=== PATIENT | female | born 1940 | race Caucasian/White ===

== ENCOUNTER → 2018-11-28 | Outpatient (CLI) | payer MEDICARE ==
--- NOTE | 2018-11-29 18:41 | ECHOF ---
Referral Reason:I10 essential primary hypertension MEASUREMENTS -------- HEIGHT: 160.0 cm WEIGHT: 5.9 kg BP: 183/86 RVIDd: 2.7 cm (< 3.3) IVSd: 1.3 cm (0.6 - 1.1) LVIDd: 3.5 cm (3.9 - 5.3) LVPWd: 1.1 cm (0.6 - 1.1) IVSs: 1.8 cm LVIDs: 2.5 cm LVPWs: 1.3 cm LA Diam: 3.4 cm (2.7 - 3.8) Ao Diam: 3.2 cm (2.0 - 3.7) AV Cusp: 2.1 cm (1.5 - 2.6) MV EXCURSION: 8.503 mm (> 18.000) MV EF SLOPE: 27 mm/s (70 - 150) EPSS: 0.9 cm MV E Mick: 0.86 m/s MV DecT: 237 ms MV A Mick: 0.64 m/s MV E/A Ratio: 1.35 AR PHT: 674 ms RAP: 5.00 mmHg RVSP: 23.57 mmHg FINDINGS -------- This was a technically adequate study. The left ventricular size is normal. There is mild concentric left ventricular hypertrophy. Overa ll left ventricular systolic function is normal with, an EF between 60 - 65 %. The right ventricle is normal in size. The left atrial size is normal. The right atrium is normal in size. Interatrial and interventricular septum intact. There is mild aortic valve sclerosis. There is mild aortic regurgitation. Mild mitral annular calcification present. There is trace to mild mitral regurgitation. Mild tricuspid regurgitation present. Right ventricular systolic pressure is normal at < 35 mmHg. Trace/mild (physiologic) pulmonic regurgitation. The aortic root size is normal. Normal inferior vena cava with normal inspiratory collapse consistent with estimated right atrial pre ssure of 5 mmHg. There is no pericardial effusion. CONCLUSIONS -------- 1. This was a technically adequate study. 2. The left ventricular size is normal. 3. There is mild concentric left ventricular hypertrophy. 4. Overall left ventricular systolic function is normal with, an EF between 60 - 65 %. 5. The right ventricle is normal in size. 6. The left atrial size is normal. 7. The right atrium is normal in size. 8. Interatrial and interventricular septum intact. 9. There is mild aortic valve sclerosis. 10. There is mild aortic regurgitation. 11. Mild mitral annular calcification present. 12. There is trace to mild mitral regurgitation. 13. Mild tricuspid regurgitation present. 14. Right ventricular systolic pressure is normal at < 35 mmHg. 15. Trace/mild (physiologic) pulmonic regurgitation. 16. The aortic root size is normal. 17. Normal inferior vena cava with normal inspiratory collapse consistent with estimated right atrial pressure of 5 mmHg. 18. There is no pericardial effusion. PRODUCTION SUPPORT DEVELOPER: Katey Boyd RDCS
== END | disposition home or self-care (01) ==
LOC: RADECHMAIN 15:44
PROVIDERS: ATTEND Internal Medicine
DX: I08.3 Combined rheumatic disorders of mitral, aortic and tricuspid valves (principal); I10 Essential (primary) hypertension
CPT/HCPCS: 93306

== ENCOUNTER → 2018-12-19 | Outpatient (CLI) | payer MEDICARE | END | disposition home or self-care (01) | LOC: LABWHC1 09:33 | PROVIDERS: ATTEND Orthopaedic Surgery | DX: Z01.812 Encounter for preprocedural laboratory examination (principal); M16.12 Unilateral primary osteoarthritis, left hip | CPT/HCPCS: 87070 ==

== ENCOUNTER 2018-12-27 06:53 | Inpatient (IN) | payer MEDICARE ==
--- NOTE | 2018-12-26 09:24 | HP ---
HISTORY AND PHYSICAL CHIEF COMPLAINT: Left hip pain. HISTORY OF PRESENT ILLNESS: The patient is a 78-year-old retired female who presents with progressive left hip pain secondary to osteoarthrosis. She notes severe pain with ambulation and at night. She has been using a cane. She has tried medications with only temporary partial relief. She notes it severely limits her. PAST MEDICAL HISTORY: Significant for arthritis, hypertension, and hypothyroidism. PAST SURGICAL HISTORY: Significant for tubal ligation and foot surgery. CURRENT MEDICATIONS: 1. Simvastatin. 2. Synthroid. 3. Aspirin. 4. Cozaar. ALLERGIES: She denies drug allergies. FAMILY HISTORY: Significant for heart disease. SOCIAL HISTORY: Negative for current tobacco or alcohol use. REVIEW OF SYSTEMS: Sixteen-point review of systems otherwise reviewed and is noncontributory. PHYSICAL EXAMINATION: On examination, the patient is approximately 5 feet 3 inches, 155 pounds of mesomorphic habitus. HEENT exam is nonfocal. Neck is supple. Active motion left hip, flexion 70 degrees, external rotation of the hip flexed 65 degrees, internal rotation 0 degrees with pain. Motor strength is 5 minus over 5 for abduction. She has 1 cm shortening of the left lower extremity compared to the right. She does have a mildly antalgic gait pattern. Her distal neurovascular exam appears intact in the left lower extremity. Previous x-rays of the left hip obtained in the office show severe osteoarthrosis with [id number] changes. IMPRESSION: Left hip severe osteoarthrosis-symptomatic. RECOMMENDATIONS: I talked to the patient at length regarding her condition and treatment options. At this point, she is quite symptomatic and opts to proceed with surgery. We will plan to proceed with left total hip arthroplasty utilizing a direct anterior approach. We will institute DVT prophylaxis postoperatively. Risks and benefits were discussed at length in layman's terms. MMODL / IJN: [id number] /
[~2018-12-27 06:53] MED LIST: ACETAMINOPHEN TAB 500 MG TAB PO ONE; DEXAMETHASONE SOD PHOSPHATE 10 MG/ML 1 ML VIAL IV ONE; HYDROmorphone 0.5 MG/0.5 ML SYRINGE IVP PRN; LIDOCAINE 1% 20 ML VIAL (10MG/ML) FOR IV START INTRADERMA PRN; MELOXICAM 7.5 MG TAB PO ONE; MIDAZOLAM 2 MG/2 ML VIAL IV PRN; ONDANSETRON 4 MG/2 ML VIAL IVP ONE; SCOPOLAMINE 1.5MG/72HR PATCH TRANSDERM ONE; TRANEXAMIC ACID 1,000 MG in SODIUM CHLORIDE 0.9% 100 ML IVPB ONE
[2018-12-27] MEDS: LACTATED RINGERS 1,000 ML IV SCH (07:36)
[2018-12-27 07:44] LABS: INR 0.9 (<1.2); Prothrombin Time 10.2 sec (9.0-12.0)
[2018-12-27] MEDS ORDERED: SODIUM CHLORIDE 0.9% 100 ML BAG ONE (07:49)
[2018-12-27] MEDS ORDERED: MIDAZOLAM 2 MG/2 ML VIAL ONE (07:49)
[2018-12-27] MEDS ORDERED: HEPARIN SODIUM,PORCINE 10,000 UNIT/ML 1 ML VIAL ONE (07:49)
[2018-12-27] MEDS ORDERED: ePHEDrine SULFATE/0.9% NACL/PF 50 MG/5 ML SYRINGE IV ONE (07:49)
[2018-12-27] MEDS ORDERED: TRANEXAMIC ACID 1,000 MG/10 ML VIAL ONE (07:49)
[2018-12-27] MEDS ORDERED: LACTATED RINGERS 1,000 ML BAG IV ONE (07:49)
[2018-12-27] MEDS ORDERED: PROPOFOL 10 MG/ML 20 ML VIAL IV ONE (07:49)
[2018-12-27] MEDS ORDERED: fentaNYL (PF) 50 MCG/ML 2 ML AMP ONE (07:49)
[2018-12-27] MEDS ORDERED: ceFAZolin 3,000 MG in SODIUM CHLORIDE 0.9% IRRIGATIO 3,000 ML IRRIGATION ONE (08:36)
[2018-12-27] MEDS ORDERED: HYDROmorphone 0.5 MG/0.5 ML SYRINGE IVP PRN ×2 (09:43→11:20)
[2018-12-27] MEDS ORDERED: MAGNESIUM HYDROXIDE 2,400 MG/10 ML CUP PO PRN (09:43)
[2018-12-27] MEDS ORDERED: NALOXONE 0.4 MG/ML 1 ML VIAL IV PRN (09:43)
[2018-12-27] MEDS ORDERED: HYDROcodone/APAP 5-325MG 1 EACH TAB PO PRN (09:43)
--- NOTE | 2018-12-27 10:04 | FL ---
EXAMINATION TYPE: FL guidance operating room, XR Hip Limited LT DATE OF EXAM: 12/27/2018 CLINICAL HISTORY: Left hip pain and osteoarthritis. TECHNIQUE: Fluoroscopy. Intraoperative limited views left hip. COMPARISON: None. FINDINGS: Fluoroscopic guidance was provided during left hip replacement procedure performed by Dr. Bailey. A total of 41 seconds of fluoroscopic time was utilized during the procedure and 1spot intrao perative image is acquired. Intraoperative image acquired show metallic hardware satisfactory position on single frontal projecti on. IMPRESSION: As Above.
--- NOTE | 2018-12-27 10:10 | P.OP ---
Date of Procedure: 12/27/18 Preoperative Diagnosis: Left hip severe osteoarthrosis Postoperative Diagnosis: Same Procedure(s) Performed: Left total hip arthroplastyanterior approachpress-fit Implants: Depuy Corail size 10 standard press-fit collared femoral stem, 36 mm +1.5 cobalt chrome femoral head, 56 mm [place] acetabular shell with neutral polyethylene liner. Anesthesia: spinal Surgeon: Jorge Bailey Cattle Brander #1: Cruz Coffey Estimated Blood Loss (ml): 600 Pathology: other (Femoral head) Condition: stable Disposition: PACU Indications for Procedure: The patient's a 78-year-old female who presents with progressive left hip pain secondary to osteoarthrosis despite conservative measures. A discussion of the risks and benefits of operative intervention versus continued conservative measures was made with the patient. She opted to proceed with surgery. Operative risks to include infection, neurovascular injury, development of blood clots, fracture, instability, leg length discrepancy, and possible need for subsequent procedures was discussed. Informed consent was obtained. Operative Findings: As below Description of Procedure: The patient was brought to the operating room, and after induction of spinal anesthesia was placed supine on the [place] table. Positioning was checked with fluoroscopy. The left hip was then prepped and draped in a normal fashion. A 12 cm incision was then made starting 2 fingerbreadths distal and 3 finger breaths posterior to the ASIS in line with the proximal femur. The skin was incised sharply. Subcutaneous tissues were divided sharply. Electrocautery was used for hemostasis. The fascia was split in line with skin incision. The interval between the sartorius and tensor fascia manuel was then bluntly developed. The posterior fascia was opened with electrocautery. The lateral circumflex vessels were identified and cauterized prior to sectioning. A retractor was placed along the superior femoral neck as well as the anterior acetabular rim. A wide capsulotomy was performed. The neck cut was then made at a 45 angle to the shaft approximately 1 1/2 cm above the level of the lesser trochanter. The head was extracted. Attention was then paid towards preparing the acetabular. Anterior and posterior retractors were placed. The remaining capsular labral tissue sharply debrided clearly defining the acetabular margins. I began reaming with a 47 mm reamer taking care to initially medialize then reaming at 45 of abduction and 20 of anteversion. Sequential reaming is performed up to 55 mm. A trial and C6 mm acetabular shell was inserted in the same orientation and was fully seated. There was good rim fit and stability. Positioning was checked with fluoroscopy. The final 56 mm acetabular shell was inserted again at 45 of abduction and 20 of anteversion. This was fully seated. There was good rim fit and stability. I did place a 6.5 mm x 30 mm cancellus screw posterior superior with good purcha se. Again fluoroscopy was used to check the adequacy of placement. A neutral polyethylene liner was gently impacted. Care was taken to avoid any soft tissue interposition. Pulsatile lavage was utilized. Attention was then paid towards preparing the proximal femur. The central region was cleared of soft tissue. A canal finder was used to find the femoral canal. Sequential broaching was perf ormed up to size 10 taking care to lateralize proximally. A calcar mill was used to fashion the medial calcar. There was good rotational stability. A standard neck along with a 36 mm +1.5 head was placed. The hip was gently reduced. Fluoroscopy was used to check the adequacy of positioning along with leg lengths. I felt both were good. The hip was gently dislocated. The trial components were removed. The final size 10 collared standard press-fit femoral stem was inserted parallel to the posterior cortex. This was fully seated and there was good rotational stability. A 36 mm +1.5 cobalt chrome femoral head was placed. This was gently impacted. The hip was then gently reduced. Final fluoroscopic view showed adequate placement implant along with catholic of leg length. Stability was checked with 80 of external rotation and 60 of extension of the right hip. The wound was irrigated with sterile lavage. The fascia was closed with running 0 Vicryl suture. There was minimal drainage therefore a deep drain was not placed. The second dose of IV TXA was given. The subcutaneous tissues were reapproximated interrupted 2-0 Vicryl sutures. The skin was reapproximated with 3-0 subcuticular strata fix suture. Skin tape and adhesive was applied. A sterile dressing was applied. The patient was then awoken from sedation and transferred to recovery room in good condition. Blood loss was estimated at 600 mL. She did receive approximately 180 mL of Cell Saver back. No complications were incurred. Sponge and needle counts were correct at the end of the case. Keaton CERRATO assisted during the major components is case to include exposure, bone resection, implantation, and closure.
[2018-12-27] MEDS ORDERED: LACTATED RINGERS 1,000 ML IV ONE ×2 (10:40)
--- NOTE | 2018-12-27 10:50 | XR ---
EXAMINATION TYPE: XR Hip Limited LT DATE OF EXAM: 12/27/2018 COMPARISON: None HISTORY: 78-year-old female status post hip surgery, assess surgical alignment TECHNIQUE: AP portable view FINDINGS: Image shows placement of left hip total arthroplasty. Acetabular cup and femoral stem components appe ar well seated without periprosthetic fracture. Alignment grossly anatomic. Soft tissue air related t o recent operation. IMPRESSION: Uncomplicated postoperative appearance left total hip arthroplasty.
[2018-12-27 11:38] VITALS: BMI 26.7
--- NOTE | 2018-12-27 14:30 | P.CONS ---
History of Present Illness - Reason for Consult Consult date: 12/27/18 Medical management Requesting physician: Jorge Bailey - Chief Complaint Post left total hip arthroplasty. - History of Present Illness This is a 78-year-old female one of Dr. Khan with a previous medical history significant for hypertension and hypertensive cardiovascular disease, hyperlipidemia, osteoarthritis, hypothyroidism, recurrent UTI, history of TIA /CVA, patient underwent left total hip arthroplasty anterior approach, she is laying down in bed in no apparent distress she denies any chest pain or shortness breath, she has no abdominal pain, nausea or vomiting , she is complaining of increased pain in the left hip and she is feeling behind her left ear as well she will be given some pain medicine at this point in time, she was instructed about the use of incentive spirometer, she will be followed during her hospital stay. Review of Systems Constitutional: Denies chills, Denies lethargy, Denies malaise, Denies weakness, Denies weight gain Eyes: denies as per HPI, denies blurred vision, denies bulging eye Ears: deny: decreased hearing Ears, nose, mouth and throat: Denies dysphagia, Denies neck lump, Denies swelling in throat, Denies sore throat Cardiovascular: Reports high blood pressure, Denies chest pain, Denies decreased exercise tolerance, Denies dyspnea on exertion, Denies lightheadedness, Denies rapid heart beat, Denies shortness of breath, Denies syncope Respiratory: Denies congestion, Denies cough, Denies cough with sputum, Denies home oxygen, Denies sleep apnea, Denies snoring, Denies wheezing Gastrointestinal: Denies abdominal pain, Denies belching, Denies bloating, Denies heartburn, Denies hematemesis, Denies loss of appetite, Denies melena, Denies nausea, Denies vomiting Genitourinary: Denies dysuria, Denies stress incontinence, Denies urgency Menstruation: Reports postmenopausal Musculoskeletal: Denies myalgias Musculoskeletal: left: hip pain, hip stiffness, knee pain, absent: ankle pain, ankle stiffness, ankle swelling, elbow pain, elbow stiffness, elbow swelling, foot pain, foot stiffness, foot swelling, hand pain, hand stiffness, hand swelling, hip swelling, knee stiffness, knee swelling, shoulder pain, shoulder stiffness, shoulder swelling, wrist pain, wrist stiffness, wrist swelling Integumentary: Denies pruritus, Denies rash Neurological: Denies numbness, Denies weakness Psychiatric: Denies anxiety, Denies depression Endocrine: Denies fatigue, Denies weight change Past Medical History Past Medical History: CVA/TIA, Hyperlipidemia, Hypertension, Osteoarthritis (O A), Thyroid Disorder Additional Past Medical History / Comment(s): chronic UTI's, TIA 2002-no effects, on rx for UTI, History of Any Multi-Drug Resistant Organisms: None Reported Past Surgical History: Joint Replacement, Tonsillectomy, Tubal Ligation Additional Past Surgical History / Comment(s): rt great toe surgery, mass removed from left great toe, elliot cataracts, left eye laser surgery Past Anesthesia/Blood Transfusion Reactions: Motion Sickness Smoking Status: Never smoker - Past Family History Mother Family Medical History: Coronary Artery Disease (CAD) ( Mother at age of 82 from CAD and she also had osteoarthritis.) Father Family Medical History: Myocardial Infarction (HI) (Father at age of 82 from HI.) Sister(s) Family Medical History: No Reported History (Patient has one sister no major medical problems.) Son(s) Family Medical History: No Reported History (Patient has 2 sons no major medical problems.) Daughter(s) Family Medical History: No Reported History (Patient has one daughter no major medical problems.) Medications and Allergies Home Medications Medication Instructions Recorded Confirmed Type Aspirin [Adult Low Dose Aspirin EC] 81 mg PO HS 12/21/18 12/27/18 History Calcium(Dose Unknown) 1 tab PO DAILY 12/21/18 12/27/18 History Levothyroxine Sodium [Synthroid] 50 mcg PO DAILY 12/21/18 12/27/18 History Losartan Potassium [Cozaar] 100 mg PO DAILY 12/21/18 12/27/18 History Macrobid(Dose Unknown) 1 tab PO BID 12/21/18 12/27/18 History Metoprolol Tartrate [Lopressor] 25 mg PO DAILY@1200 12/21/18 12/27/18 History Simvastatin [Zocor] 20 mg PO HS 12/21/18 12/27/18 History Calcium Carbonate [Calcium] 600 mg PO DAILY 12/27/18 12/27/18 History Nitrofurantoin Monohyd/M-Cryst 100 mg PO Q12HR 12/27/18 12/27/18 History [Macrobid] Allergies Allergy/AdvReac Type Severity Reaction Status Date / Time Sulfa (Sulfonamide Allergy Rash/Hives Verified 12/27/18 12:09 Antibiotics) Physical Exam Vitals: Vital Signs Temp Pulse Pulse Resp BP BP Pulse Ox 12/27/18 13:10 74 114/75 94 L 12/27/18 12:55 72 119/72 96 12/27/18 12:40 78 112/62 97 12/27/18 12:25 133/87 12/27/18 12:10 68 110/75 94 L 12/27/18 11:55 77 144/78 99 12/27/18 11:40 69 147/88 98 12/27/18 11:33 80 15 138/70 98 12/27/18 11:25 78 138/70 95 12/27/18 11:10 97.5 F L 74 16 163/90 100 12/27/18 10:54 71 16 131/64 99 12/27/18 10:41 68 16 137/68 98 12/27/18 10:36 75 16 115/57 98 12/27/18 10:21 76 16 110/69 100 12/27/18 10:06 96.8 F L 69 12 117/65 100 12/27/18 07:36 97.0 F L 70 17 199/91 98 Intake and Output 12/26/18 12/27/18 12/27/18 22:59 06:59 14:59 Intake Total 1373 Output Total 600 Balance 773 Intake: IV 1151 Oral 222 Output: Estimated Blood Loss 600 - Constitutional General appearance: average body habitus, no acute distress - EENT Eyes: anicteric sclerae, EOMI, PERRLA, no ptosis, no scleral icterus, normal appearance ENT: hearing grossly normal, NA/AT, normal oropharynx, no thrush Ears: bilateral: normal - Neck Neck: no lymphadenopathy, normal ROM, no rigidity, no stridor, no thyromegaly Carotids: bilateral: upstroke normal Thyroid: bilateral: normal size - Respiratory Respiratory: bilateral: diminished, negative: dullness, rales, rhonchi, wheezing, prolonged expiration, prolonged inspiration - Cardiovascular Rhythm: regular Heart sounds: normal: S1, S2 Abnormal Heart Sounds: no systolic murmur, no rub, no S3 Gallop, no click - Gastrointestinal General gastrointestinal: decreased bowel sounds, soft, no splenomegaly, no tenderness, no umbilical hernia, no ventral hernia - Integumentary Integumentary: normal, normal turgor - Neurologic Neurologic: CNII-XII intact - Musculoskeletal Musculoskeletal: strength equal bilaterally - Psychiatric Psychiatric: A&O x's 3, appropriate affect, intact judgment & insight Assessment and Plan Assessment: Assessment and plan: 1. Post operative day #0 status post left total hip arthroplasty anterior approach. Continue current pain management as outlined by orthopedic surgery, continue to use the incentive spirometer to reduce the incidence of atelectasis and health care associated pneumonia, continue DVT prophylaxis with Lovenox 40 mg subcutaneously every 24 hours, physical therapy evaluation tomorrow morning. 2. Hypertension and hypertensive cardiovascular disease. Continue losartan 100 mg orally once every day metoprolol 25 mg orally once every day. 3. Hyperlipidemia. Continue patient on Lipitor 10 mg orally once every day. 4. Hypothyroidism. Continue Synthroid 50 g orally once every day. 5. Recurrent UTI. Monitor the patient UA. 6. Osteoarthritis. Continue current pain management. 7. History of CVA/TIA. Stable at this time. Continue with statin for secondary stroke prevention. 8. DVT prophylaxis. Currently on Lovenox 40 mg subcutaneously every 24 hours. 9. Thank you for the consult we will follow with you.
[2018-12-27] MEDS: traMADol 50 MG TAB PO SCH ×2 (14:31→18:43)
[2018-12-27] MEDS: METOPROLOL TARTRATE 25 MG TAB PO SCH (17:56)
[2018-12-27] MEDS: ONDANSETRON 4 MG/2 ML VIAL IVP PRN (18:02)
[2018-12-28] MEDS: SENNOSIDES-DOCUSATE SODIUM 1 EACH TAB PO SCH ×2 (00:22→23:06)
[2018-12-28] MEDS: ATORVASTATIN 10 MG TAB PO SCH ×2 (00:22→23:06)
[2018-12-28] MEDS: traMADol 50 MG TAB PO SCH ×6 (00:25→23:10)
[2018-12-28] MEDS: LEVOTHYROXINE 50 MCG TAB PO SCH (06:05)
[2018-12-28] MEDS: LACTATED RINGERS 1,000 ML IV SCH (06:10)
[2018-12-28 07:13] LABS: Basophils % (A) 0 %; Eosinophils % (A) 0 %; HCT 28.4 % (34.0-46.0); Lymphocytes # (A) 1.1 k/uL (1.0-4.8); Lymphocytes % (A) 7 %; MCH 28.4 pg (25.0-35.0); MCHC 31.8 g/dL (31.0-37.0); MCV 89.3 fL (80.0-100.0); Monocytes % (A) 6 %; Neutrophils # (A) 13.5 k/uL (1.3-7.7); Neutrophils % (A) 86 %; Platelet Count 298 k/uL (150-450); RBC 3.18 m/uL (3.80-5.40); RDW 14.2 % (11.5-15.5); WBC 15.7 k/uL (3.8-10.6)
[2018-12-28] MEDS: ONDANSETRON 4 MG/2 ML VIAL IVP PRN (08:14)
[2018-12-28] MEDS ORDERED: ENOXAPARIN 40 MG/0.4 ML SYRINGE SQ SCH (09:00)
[2018-12-28] MEDS: LOSARTAN 50 MG TAB PO SCH (09:49)
[2018-12-28] MEDS: FAMOTIDINE 20 MG TAB PO SCH (10:56)
[2018-12-28] MEDS: MELOXICAM 7.5 MG TAB PO SCH (10:56)
[2018-12-28] MEDS: METOPROLOL TARTRATE 25 MG TAB PO SCH (10:57)
--- NOTE | 2018-12-28 12:49 | P.PN ---
Subjective Progress Note Date: 12/28/18 Principal diagnosis: Status post direct anterior lip total hip arthroplasty Patient evaluated today at bedside, she is sitting in a hospital chair. She did ambulate well with therapy. She had 2 different episodes of nausea and vomiting though. She has no chest pain or shortness of breath this time. Objective - Vital Signs Vital signs: Vital Signs Temp 97.4 F L 12/28/18 07:00 Pulse 79 12/28/18 12:38 Resp 15 12/28/18 07:00 BP 102/61 12/28/18 12:38 Pulse Ox 98 12/28/18 07:00 Intake & Output 12/27/18 12/28/18 12/28/18 18:59 06:59 18:59 Intake Total 1773 Output Total 600 Balance 1173 Intake: IV 1311 Lactated Ringers 1,000 ml 160 @ 40 mls/hr IV .Q24H GARCÍA Rx#:[id number] Oral 462 Output: Estimated Blood Loss 600 Other: Voiding Method Toilet Bedpan Toilet # Voids 1 2 - Exam Left lower extremity: Incision is clean, dry, and intact. The exofin fusion tape is in good condition. There is minimal soft tissue swelling and ecchymosis surrounding the medial and lateral aspects of the incision. Calf is soft, no tenderness with palpation. Plantar flexion, dorsiflexion, EHL, FHL are intact. Sensory exam to light touch throughout the extremity is intact, dorsal pedis pulses 2+. - Labs CBC & Chem 7: 12/28/18 06:28 Labs: Abnormal Lab Results - Last 24 Hours (Table) 12/28/18 Range/Units 06:28 WBC 15.7 H (3.8-10.6) k/uL RBC 3.18 L (3.80-5.40) m/uL Hgb 9.0 L (11.4-16.0) gm/dL Hct 28.4 L (34.0-46.0) % Neutrophils # 13.5 H (1.3-7.7) k/uL Assessment and Plan Plan: Assessment: Postop day #1 status post direct anterior left total hip arthroplasty Plan: Pain control, avoid high-dose narcotics. Utilize oral medication GI and DVT prophylaxis continue current medication Recommend bland diet Recommend incentive spirometer Continue with therapy, utilize walker at all times Medical recommendations Discharge planning: Hopeful discharged tomorrow Time with Patient: Less than 30
[2018-12-28] MEDS ORDERED: SODIUM CHLORIDE 0.9% 500 ML 500 ML IV ONE (12:59)
--- NOTE | 2018-12-28 15:00 | P.PN ---
Subjective Progress Note Date: 12/28/18 This is a 78-year-old female one of Dr. Khan with a previous medical history significant for hypertension and hypertensive cardiovascular disease, hyperlipidemia, osteoarthritis, hypothyroidism, recurrent UTI, history of TIA/CVA, patient underwent left total hip arthroplasty anterior approach, she is laying down in bed in no apparent distress she denies any chest pain or shortness breath, she has no abdominal pain, nausea or vomiting , she is complaining of increased pain in the left hip and she is feeling behind her left ear as well she will be given some pain medicine at this point in time, she was instructed about the use of incentive spirometer, she will be followed during her hospital stay. 12/28: Patient had nausea this morning when working with physical therapy and vomiting in the bathroom. She also had another episode of vomiting after she returned to the chair and these were both after Zofran was given this morning. Patient denies having any dizziness. She did have another episode of nausea with ambulation. We have ordered a fluid bolus of 500ml of IV fluids. If n ecessary, scopolamine patch will be ordered. Patient's discharge plan is to return home with homecare which will most likely occur tomorrow. Objective - Vital Signs Vital signs: Vital Signs Temp 97.4 F L 12/28/18 07:00 Pulse 84 12/28/18 07:00 Resp 15 12/28/18 07:00 BP 118/66 12/28/18 07:00 Pulse Ox 98 12/28/18 07:00 Intake & Output 12/27/18 12/28/18 12/28/18 18:59 06:59 18:59 Intake Total 1773 Output Total 600 Balance 1173 Intake: IV 1311 Lactated Ringers 1,000 ml 160 @ 40 mls/hr IV .Q24H GARCÍA Rx#:[id number] Oral 462 Output: Estimated Blood Loss 600 Other: Voiding Method Toilet Bedpan Toilet # Voids 1 2 - Exam Review of Systems Constitutional: Denies chills, Denies lethargy, Denies malaise, Denies weakness, Denies weight gain Eyes: denies as per HPI, denies blurred vision, denies bulging eye Ears: deny: decreased hearing Ears, nose, mouth and throat: Denies dysphagia, Denies neck lump, Denies swelling in throat, Denies sore throat Cardiovascular: Reports high blood pressure, Denies chest pain, Denies decreased exercise tolerance, Denies dyspnea on exertion, Denies lightheadedness, Denies rapid heart beat, Denies shortness of breath, Denies syncope Respiratory: Denies congestion, Denies cough, Denies cough with sputum, Denies home oxygen, Denies sleep apnea, Denies snoring, Denies wheezing Gastrointestinal: Denies abdominal pain, Denies belching, Denies bloating, Denies heartburn, Denies hematemesis, Denies loss of appetite, Denies melena, reports nausea, reports vomiting Genitourinary: Denies dysuria, Denies stress incontinence, Denies urgency Menstruation: Reports postmenopausal Musculoskeletal: Denies myalgias Musculoskeletal: left: hip pain, hip stiffness, knee pain, absent: ankle pain, ankle stiffness, ankle swelling, elbow pain, elbow stiffness, elbow swelling, f oot pain, foot stiffness, foot swelling, hand pain, hand stiffness, hand swelling, hip swelling, knee stiffness, knee swelling, shoulder pain, shoulder stiffness, shoulder swelling, wrist pain, wrist stiffness, wrist swelling Integumentary: Denies pruritus, Denies rash Neurological: Denies numbness, Denies weakness Psychiatric: Denies anxiety, Denies depression Endocrine: Denies fatigue, Denies weight change - Constitutional General appearance: average body habitus, no acute distress - EENT Eyes: anicteric sclerae, EOMI, PERRLA, no ptosis, no scleral icterus, normal appearance ENT: hearing grossly normal, NA/AT, normal oropharynx, no thrush Ears: bilateral: normal - Neck Neck: no lymphadenopathy, normal ROM, no rigidity, no stridor, no thyromegaly Carotids: bilateral: upstroke normal Thyroid: bilateral: normal size - Respiratory Respiratory: bilateral: diminished, negative: dullness, rales, rhonchi, wheezing, prolonged expiration, prolonged inspiration - Cardiovascular Rhythm: regular Heart sounds: normal: S1, S2 Abnormal Heart Sounds: no systolic murmur, no rub, no S3 Gallop, no click - Gastrointestinal General gastrointestinal: decreased bowel sounds, soft, no splenomegaly, no tenderness, no umbilical hernia, no ventral hernia - Integumentary Integumentary: normal, normal turgor - Neurologic Neurologic: CNII-XII intact - Musculoskeletal Musculoskeletal: strength equal bilaterally. Small dressing in place of the left hip with no breakthrough bleeding drainage. No significant edema. - Psychiatric Psychiatric: A&O x's 3, appropriate affect, intact judgment & insight - Labs CBC & Chem 7: 12/28/18 06:28 Labs: Abnormal Lab Results - Last 24 Hours (Table) 12/28/18 Range/Units 06:28 WBC 15.7 H (3.8-10.6) k/uL RBC 3.18 L (3.80-5.40) m/uL Hgb 9.0 L (11.4-16.0) gm/dL Hct 28.4 L (34.0-46.0) % Neutrophils # 13.5 H (1.3-7.7) k/uL Assessment and Plan Plan: 1. Post operative day #1 status post left total hip arthroplasty anterior approach. Continue current pain management as outlined by orthopedic surgery, continue to use the incentive spirometer to reduce the incidence of atelectasis and health care associated pneumonia, continue DVT prophylaxis with Lovenox 40 mg subcutaneously every 24 hours, physical therapy evaluation tomorrow morning. 2. Hypertension and hypertensive cardiovascular disease. Continue losartan 100 mg orally once every day metoprolol 25 mg orally once every day. 3. Hyperlipidemia. Continue patient on Lipitor 10 mg orally once every day. 4. Hypothyroidism. Continue Synthroid 50 g orally once every day. 5. Recurrent UTI. Monitor the patient UA. 6. Osteoarthritis. Continue current pain management. 7. History of CVA/TIA. Stable at this time. Continue with statin for secondary stroke prevention. 8. DVT prophylaxis. Currently on Lovenox 40 mg subcutaneously every 24 hours. 9. Postop nausea. IV fluid bolus given. Possible need for scopolamine patch if not resolving. Discharge plan: Most likely home with homecare tomorrow. Impression and plan of care have been directed as dictated by the signing physician. Cynthia Rahman nurse practitioner acting as scribe for signing physician.
[2018-12-28] MEDS: ACETAMINOPHEN TAB 325 MG TAB PO PRN (17:41)
[2018-12-28] MEDS: FERROUS SULFATE 325 MG TAB PO SCH (17:41)
[2018-12-29] MEDS ORDERED: SODIUM CHLORIDE 0.9% 500 ML 500 ML IV ONE (03:46)
[2018-12-29] MEDS ORDERED: METOPROLOL TARTRATE 25 MG TAB PO STA (03:56)
[2018-12-29] MEDS: LEVOTHYROXINE 50 MCG TAB PO SCH (05:45)
[2018-12-29] MEDS: LACTATED RINGERS 1,000 ML IV SCH (06:50)
[2018-12-29] MEDS: FERROUS SULFATE 325 MG TAB PO SCH ×2 (07:01→17:42)
[2018-12-29 07:36] LABS: Calcium 8.6 mg/dL (8.4-10.2); Total Bilirubin 0.3 mg/dL (0.2-1.3); Total Protein 5.4 g/dL (6.3-8.2)
[2018-12-29 08:50] LABS: Basophils % (A) 0 %; Eosinophils # (A) 0.1 k/uL (0-0.7); Eosinophils % (A) 0 %; HCT 24.7 % (34.0-46.0); HGB 8.1 gm/dL (11.4-16.0); Lymphocytes # (A) 1.1 k/uL (1.0-4.8); Lymphocytes % (A) 7 %; MCH 29.2 pg (25.0-35.0); MCHC 32.9 g/dL (31.0-37.0); MCV 88.8 fL (80.0-100.0); Mean Platelet Volume 7.5; Monocytes # (A) 0.9 k/uL (0-1.0); Monocytes % (A) 6 %; Neutrophils # (A) 13.7 k/uL (1.3-7.7); Neutrophils % (A) 86 %; Platelet Count 284 k/uL (150-450); RBC 2.79 m/uL (3.80-5.40); RDW 14.7 % (11.5-15.5); WBC 15.9 k/uL (3.8-10.6)
[2018-12-29] MEDS: MELOXICAM 7.5 MG TAB PO SCH (08:55)
[2018-12-29] MEDS: ACETAMINOPHEN TAB 325 MG TAB PO PRN (08:56)
[2018-12-29] MEDS: FAMOTIDINE 20 MG TAB PO SCH (08:57)
[2018-12-29] MEDS: APIXABAN 5 MG TAB PO SCH ×2 (08:57→21:10)
[2018-12-29] MEDS: METOPROLOL TARTRATE 25 MG TAB PO SCH ×2 (08:57→20:28)
[2018-12-29] MEDS: LOSARTAN 50 MG TAB PO SCH (08:58)
[2018-12-29] MEDS: traMADol 50 MG TAB PO SCH ×4 (08:58→23:20)
--- NOTE | 2018-12-29 10:46 | P.PN ---
Subjective Progress Note Date: 12/29/18 Principal diagnosis: Status post direct anterior lip total hip arthroplasty Patient evaluated today at bedside, she was transferred to the cardiac stepdown unit after going and A. fib. She is doing okay at this time, she still requiring assistance with getting to and from the bathroom. She does note some increasing fatigue today. Pain is well-controlled. Objective - Vital Signs Vital signs: Vital Signs Temp 98.1 F 12/29/18 08:00 Pulse 73 12/29/18 08:00 Resp 16 12/29/18 08:00 BP 117/64 12/29/18 08:00 Pulse Ox 93 L 12/29/18 08:00 Intake & Output 12/28/18 12/29/18 12/29/18 18:59 06:59 18:59 Intake Total 180 Balance 180 Intake: Oral 180 Other: Voiding Method Toilet Diaper Incontinent # Voids 2 1 - Exam Left lower extremity: Incision is clean, dry, and intact. The exofin fusion tape is in good condi tion. There is minimal soft tissue swelling and ecchymosis surrounding the medial and lateral aspects of the incision. Calf is soft, no tenderness with palpation. Plantar flexion, dorsiflexion, EHL, FHL are intact. Sensory exam to light touch throughout the extremity is intact, dorsal pedis pulses 2+. - Labs CBC & Chem 7: 12/29/18 06:58 12/29/18 06:58 Labs: Abnormal Lab Results - Last 24 Hours (Table) 12/29/18 12/29/18 Range/Units 06:58 06:58 WBC 15.9 H (3.8-10.6) k/uL RBC 2.79 L (3.80-5.40) m/uL Hgb 8.1 L (11.4-16.0) gm/dL Hct 24.7 L (34.0-46.0) % Neutrophils # 13.7 H (1.3-7.7) k/uL Glucose 108 H (74-99) mg/dL AST 67 H (14-36) U/L Total Protein 5.4 L (6.3-8.2) g/dL Albumin 3.0 L (3.5-5.0) g/dL Assessment and Plan Plan: Assessment: Postop day #1 status post direct anterior left total hip arthroplasty Acute blood loss anemia, expected surgical outcome Plan: Ordere one unit of blood to be transfused due to symptomatic anemia Pain control, continue current medication GI and DVT prophylaxis considering utilizing Xarelto or Eliquis, cardiac recommendations Recommend incentive spirometer Continue with therapy, utilize walker at all times Medical recommendations Discharge planning: Planning for discharge to rehab tomorrow Time with Patient: Less than 30
--- NOTE | 2018-12-29 11:17 | P.CRDCN ---
History of Present Illness Consult date: 12/29/18 Requesting physician: Shemar Shah Consult reason: atrial fibrillation Chief complaint: Status post left total hip arthroplasty History of present illness: This is a pleasant 78-year-old female with history of hypertension, hyperlipidemia, hypothyroidism, osteoarthritis, history of prior TIA/CVA, who underwent left total hip arthroplasty anterior approach, procedure itself went very well, patient had an episode of atrial fibrillation for which a cardiology consultation was requested. Subsequently the patient is now in a normal sinus rhythm. According to the patient, she does have a history of an episode of atrial fibrillation in the past, she was advised several years ago to take Eliquis which she refused at that time. She now agrees to take anticoagulation for stroke prevention. Her blood pressure this morning 118/60 with a heart rate in the 70s to low 100s, 93% on room air. White blood cell count 15.9, hemoglobin 8.1, platelet count 284, sodium 140, potassium 4.0, BUN 15 and creatinine 0.8, magnesium is 2.0. At the time of my examination this morning, patient is complaining of some mild nausea, she did have an episode of vomiting. She states yesterday she had a similar episode immediately after taking all of her pills at once. Past Medical History Past Medical History: CVA/TIA, Hyperlipidemia, Hypertension, Osteoarthritis (OA), Thyroid Disorder Additional Past Medical History / Comment(s): chronic UTI's, TIA 2002-no effects, on rx for UTI, History of Any Multi-Drug Resistant Organisms: None Reported Past Surgical History: Joint Replacement, Tonsillectomy, Tubal Ligation Additional Past Surgical History / Comment(s): rt great toe surgery, mass removed from left great toe, elliot cataracts, left eye laser surgery Past Anesthesia/Blood Transfusion Reactions: Motion Sickness Smoking Status: Never smoker - Past Family History Mother Family Medical History: Coronary Artery Disease (CAD) ( Mother at age of 82 from CAD and she also had osteoarthritis.) Father Family Medical History: Myocardial Infarction ([place]) (Father at age of 82 from [place].) Sister(s) Family Medical History: No Reported History (Patient has one sister no major medical problems.) Son(s) Family Medical History: No Reported History (Patient has 2 sons no major medical problems.) Daughter(s) Family Medical History: No Reported History (Patient has one daughter no major medical problems.) Medications and Allergies Home Medications Medication Instructions Recorded Confirmed Type Aspirin [Adult Low Dose Aspirin EC] 81 mg PO HS 12/21/18 12/27/18 History Calcium(Dose Unknown) 1 tab PO DAILY 12/21/18 12/27/18 History Levothyroxine Sodium [Synthroid] 50 mcg PO DAILY 12/21/18 12/27/18 History Losartan Potassium [Cozaar] 100 mg PO DAILY 12/21/18 12/27/18 History Macrobid(Dose Unknown) 1 tab PO BID 12/21/18 12/27/18 History Metoprolol Tartrate [Lopressor] 25 mg PO DAILY@1200 12/21/18 12/27/18 History Simvastatin [Zocor] 20 mg PO HS 12/21/18 12/27/18 History Calcium Carbonate [Calcium] 600 mg PO DAILY 12/27/18 12/27/18 History Nitrofurantoin Monohyd/M-Cryst 100 mg PO Q12HR 12/27/18 12/27/18 History [Macrobid] Allergies Allergy/AdvReac Type Severity Reaction Status Date / Time Sulfa (Sulfonamide Allergy Rash/Hives Verified 12/27/18 12:09 Antibiotics) Physical Exam Vitals: Vital Signs Temp Pulse Pulse Resp BP Pulse Ox 12/29/18 08:00 98.1 F 73 16 117/64 93 L 12/29/18 06:05 98.4 F 78 16 134/63 97 12/29/18 04:00 105 H 16 12/29/18 01:40 98.1 F 105 H 16 129/79 95 12/28/18 23:00 16 12/28/18 19:15 98.0 F 78 16 128/72 100 12/28/18 15:02 98.4 F 55 L 15 106/58 98 12/28/18 12:38 79 102/61 Intake and Output 12/28/18 12/29/18 12/29/18 22:59 06:59 14:59 Other: Voiding Method Diaper Diaper Incontinent Incontinent # Voids 1 1 PHYSICAL EXAMINATION: GENERAL: 78-year-old female in no acute distress at the time of my examination HEENT: Head is atraumatic, normocephalic. Pupils equal, round. Sclera anicter ic. Conjunctiva are clear. Mucous membranes of the mouth are moist. Neck is supple. There is no elevated jugular venous pressure. No carotid bruit is heard. HEART EXAMINATION: Heart S1, S2 normal. No murmur or gallop heard. CHEST EXAMINATION: Lungs are clear to auscultation and precussion. No chest wall tenderness is noted on palpation or with deep breathing. ABDOMEN: Soft, nontender. Bowel sounds are heard. No organomegaly noted. EXTREMITIES: 2+ peripheral pulses with no evidence of peripheral edema and no calf tenderness noted. NEUROLOGIC patient is awake, alert and oriented 3. . Results 12/29/18 06:58 12/29/18 06:58 Cardiac Enzymes 12/29/18 Range/Units 06:58 AST 67 H (14-36) U/L CBC 12/29/18 Range/Units 06:58 WBC 15.9 H (3.8-10.6) k/uL RBC 2.79 L (3.80-5.40) m/uL Hgb 8.1 L (11.4-16.0) gm/dL Hct 24.7 L (34.0-46.0) % Plt Count 284 (150-450) k/uL Comprehensive Metabolic Panel 12/29/18 Range/Units 06:58 Sodium 140 (137-145) mmol/L Potassium 4.0 (3.5-5.1) mmol/L Chloride 106 (98-107) mmol/L Carbon Dioxide 30 (22-30) mmol/L BUN 15 (7-17) mg/dL Creatinine 0.84 (0.52-1.04) mg/dL Glucose 108 H (74-99) mg/dL Calcium 8.6 (8.4-10.2) mg/dL AST 67 H (14-36) U/L ALT 22 (9-52) U/L Alkaline Phosphatase 61 (38-126) U/L Total Protein 5.4 L (6.3-8.2) g/dL Albumin 3.0 L (3.5-5.0) g/dL Current Medications Generic Name Dose Route Start Last Admin Trade Name Freq PRN Reason Stop Dose Admin Acetaminophen 650 mg 12/27/18 09:43 12/29/18 08:56 Tylenol Tab PO 650 mg Q4HR PRN Administration Pain Scale 1 to 5 Hydrocodone Bitart/Acetaminophen 1 each 12/27/18 09:43 Metaline 5-325 PO Q6HR PRN Pain Scale 6-10 Apixaban 5 mg 12/29/18 09:00 12/29/18 08:57 Eliquis PO 5 mg BID GARCÍA Administration Atorvastatin Calcium 10 mg 12/27/18 21:00 12/28/18 23:06 Lipitor PO 10 mg HS GARCÍA Administration Famotidine 20 mg 12/28/18 09:00 12/29/18 08:57 Pepcid PO 20 mg DAILY GARCÍA Administration Ferrous Sulfate 325 mg 12/28/18 17:30 12/29/18 07:01 Feosol PO 325 mg BID-W/MEALS GARCÍA Administration Hydromorphone HCl 0.25 mg 12/27/18 09:43 12/27/18 11:39 Dilaudid IVP 0.25 mg Q3HR PRN Administration Pain Scale 1 to 3 Hydromorphone HCl 0.5 mg 12/27/18 11:20 12/28/18 01:47 Dilaudid IVP 0.5 mg Q3HR PRN Administration Pain Lactated Ringer's 1,000 mls @ 40 mls/hr 12/27/18 05:46 12/29/18 06:50 Lactated Ringers IV 40 mls/hr .Q24H GARCÍA Administration Levothyroxine Sodium 50 mcg 12/28/18 06:30 12/29/18 05:45 Synthroid PO 50 mcg DAILY@0630 GARCÍA Administration Lidocaine HCl 0.1 ml 12/27/18 05:46 .Xylocaine 1% Inj (10mg/Ml) For Iv Start INTRADERMA PER PROTOCOL PRN IV Start Losartan Potassium 100 mg 12/28/18 09:00 12/29/18 08:58 Cozaar PO 100 mg DAILY GARCÍA Administration Magnesium Hydroxide 2,400 mg 12/27/18 09:43 Milk Of Magnesia PO DAILY PRN Constipation Meloxicam 7.5 mg 12/28/18 09:00 12/29/18 08:55 Mobic PO 7.5 mg DAILY GARCÍA Administration Metoprolol Tartrate 25 mg 12/29/18 09:00 12/29/18 08:57 Lopressor PO 25 mg BID GARCÍA Administration Naloxone HCl 0.2 mg 12/27/18 09:43 Narcan IV Q2M PRN Opioid Reversal Ondansetron HCl 4 mg 12/27/18 09:43 08/21/19 08:14 Zofran IVP 4 mg DAILY PRN Administration Nausea And Vomiting Senna/Docusate Sodium 2 each 12/27/18 21:00 12/28/18 23:06 Senokot-S PO 2 each HS GARCÍA Administration Tramadol HCl 50 mg 12/27/18 13:00 12/29/18 08:58 Ultram PO 50 mg QID GARCÍA Administration Intake and Output 12/28/18 12/29/18 12/29/18 22:59 06:59 14:59 Other: Voiding Method Diaper Diaper Incontinent Incontinent # Voids 1 1 12/29/18 06:58 12/29/18 06:58 EKG Interpretations (text) Initial EKG shows atrial fibrillation with controlled ventricular response, subsequent EKG shows normal sinus rhythm with no acute changes. Assessment and Plan Plan: Assessment and plan #1 status post left total hip arthroplasty, anterior approach #2 hypertension #3 hyperlipidemia #4 hypothyroidism #5 paroxysmal atrial fibrillation #6 history of prior TIA/CVA #7 anemia Plan We will obtain an echocardiogram with Doppler study. Patient has been initiated on Eliquis 5 mg one tablet by mouth twice a day for stroke prevention. Her hemoglobin today is 8.1, patient may receive a unit of packed red blood cells today per [facility]. We will continue metoprolol 25 mg one tablet by mouth twice a day. Further recommendations to follow. DNP note has been reviewed, I agree with a documented findings and plan of care. Patient was seen and examined.
--- NOTE | 2018-12-29 11:46 | ECHOF ---
Referral Reason:new onset afib MEASUREMENTS -------- HEIGHT: 160.0 cm WEIGHT: 69.4 kg BP: 134/63 RVIDd: 2.5 cm (< 3.3) IVSd: 1.2 cm (0.6 - 1.1) LVIDd: 3.2 cm (3.9 - 5.3) LVPWd: 1.5 cm (0.6 - 1.1) IVSs: 1.7 cm LVIDs: 1.9 cm LVPWs: 1.8 cm Ao Diam: 3.6 cm (2.0 - 3.7) AV Cusp: 1.8 cm (1.5 - 2.6) LA Diam: 3.0 cm (2.7 - 3.8) MV EXCURSION: 18.395 mm (> 18.000) MV EF SLOPE: 52 mm/s (70 - 150) EPSS: 0.3 cm AR PHT: 206 ms RAP: 5.00 mmHg RVSP: 33.76 mmHg FINDINGS -------- Atrial fibrillation. This was a technically adequate study. The left ventricular size is normal. There is mild concentric left ventricular hypertrophy. Overa ll left ventricular systolic function is normal with, an EF between 55 - 60 %. The right ventricle is normal in size. The left atrial size is normal. The right atrial size is normal. Interatrial and interventricular septum intact. Aortic valve is trileaflet and is mildly thickened. There is mild aortic regurgitation. The mitral valve is normal. The mitral valve leaflets are mildly thickened. Mild mitral annular c alcification present. Mild mitral regurgitation is present. The tricuspid valve appears structurally normal. Mild tricuspid regurgitation present. Right vent ricular systolic pressure is normal at < 35 mmHg. There is no pulmonic regurgitation present. The aortic root size is normal. Normal inferior vena cava with normal inspiratory collapse consistent with estimated right atrial pre ssure of 5 mmHg. There is no pericardial effusion. CONCLUSIONS -------- 1. Atrial fibrillation. 2. This was a technically adequate study. 3. The left ventricular size is normal. 4. There is mild concentric left ventricular hypertrophy. 5. Overall left ventricular systolic function is normal with, an EF between 55 - 60 %. 6. The right ventricle is normal in size. 7. The left atrial size is normal. 8. The right atrial size is normal. 9. Interatrial and interventricular septum intact. 10. Aortic valve is trileaflet and is mildly thickened. 11. There is mild aortic regurgitation. 12. The mitral valve is normal. 13. The mitral valve leaflets are mildly thickened. 14. Mild mitral annular calcification present. 15. Mild mitral regurgitation is present. 16. The tricuspid valve appears structurally normal. 17. Mild tricuspid regurgitation present. 18. Right ventricular systolic pressure is normal at < 35 mmHg. 19. There is no pulmonic regurgitation present. 20. The aortic root size is normal. 21. Normal inferior vena cava with normal inspiratory collapse consistent with estimated right atrial pressure of 5 mmHg. 22. There is no pericardial effusion. [employer]IVING MACHINE OPERATOR HELPER: Elzbieta Moralez RDCS
--- NOTE | 2018-12-29 13:11 | P.PN ---
Subjective Progress Note Date: 12/29/18 This is a 78-year-old female one of Dr. Khan with a previous medical history significant for hypertension and hypertensive cardiovascular disease, hyperlipidemia, osteoarthritis, hypothyroidism, recurrent UTI, history of TIA/CVA, patient underwent left total hip arthroplasty anterior approach, she is laying down in bed in no apparent distress she denies any chest pain or shortness breath, she has no abdominal pain, nausea or vomiting , she is complaining of increased pain in the left hip and she is feeling behind her left ear as well she will be given some pain medicine at this point in time, she was instructed about the use of incentive spirometer, she will be followed during her hospital stay. 12/28: Patient had nausea this morning when working with physical therapy and vomiting in the bathroom. She also had another episode of vomiting after she returned to the chair and these were both after Zofran was given this morning. Patient denies having any dizziness. She did have another episode of nausea with ambulation. We have ordered a fluid bolus of 500ml of IV fluids. If n ecessary, scopolamine patch will be ordered. Patient's discharge plan is to return home with homecare which will most likely occur tomorrow. 12/29: This morning, patient had episode of atrial fibrillation was transferred to the cardiac stepdown unit and cardiology consult was requested. Patient did transition to a normal sinus rhythm. Apparently patient does have history of A. fib and was advised to take anticoagulation for stroke prevention but she did not. She is agreeable at this point. Heart rate is in the 70s, pulse ox 93% on room air, blood pressure 118/60. White count 15.9, hemoglobin 8.1, potassium 4.0 and sodium 140, creatinine 0.8, magnesium 2. The patient does state she had been episode of small amount of vomiting. She states she is passing gas but no bowel movement. Orthopedics has ordered for transfusion 1 unit packed RBCs. Social work has been consult regarding discharge planning as PT is recommending subacute rehab. Objective - Vital Signs Vital signs: Vital Signs Temp 98.1 F 12/29/18 08:00 Pulse 73 12/29/18 08:00 Resp 16 12/29/18 08:00 BP 117/64 12/29/18 08:00 Pulse Ox 93 L 12/29/18 08:00 Intake & Output 12/28/18 12/29/18 12/29/18 18:59 06:59 18:59 Intake Total 180 Balance 180 Intake: Oral 180 Other: Voiding Method Toilet Diaper Incontinent # Voids 2 1 - Exam Review of Systems Constitutional: Denies chills, Denies lethargy, Denies malaise, Denies weakness, Denies weight gain Eyes: denies as per HPI, denies blurred vision, denies bulging eye Ears: deny: decreased hearing Ears, nose, mouth and throat: Denies dysphagia, Denies neck lump, Denies swelling in throat, Denies sore throat Cardiovascular: Reports high blood pressure, Denies chest pain, Denies decreased exercise tolerance, Denies dyspnea on exertion, Denies lightheadedness, Denies rapid heart beat, Denies shortness of breath, Denies syncope Respiratory: Denies congestion, Denies cough, Denies cough with sputum, Denies home oxygen, Denies sleep apnea, Denies snoring, Denies wheezing Gastrointestinal: Denies abdominal pain, Denies belching, Denies bloating, Denies heartburn, Denies hematemesis, Denies loss of appetite, Denies melena, reports nausea, reports vomiting-continued Genitourinary: Denies dysuria, Denies stress incontinence, Denies urgency Menstruation: Reports postmenopausal Musculoskeletal: Denies myalgias Musculoskeletal: left: hip pain, hip stiffness, knee pain, absent: ankle pain, ankle stiffness, ankle swelling, elbow pain, elbow stiffness, elbow swelling, foot pain, foot stiffness, foot swelling, hand pain, hand stiffness, hand swelling, hip swelling, knee stiffness, knee swelling, shoulder pain, shoulder stiffness, shoulder swelling, wrist pain, wrist stiffness, wrist swelling Integumentary: Denies pruritus, Denies rash Neurological: Denies numbness, Denies weakness Psychiatric: Denies anxiety, Denies depression Endocrine: Denies fatigue, Denies weight change - Constitutional General appearance: average body habitus, no acute distress - EENT Eyes: anicteric sclerae, EOMI, PERRLA, no ptosis, conjunctiva pale ENT: hearing grossly normal, NA/AT, normal oropharynx, no thrush Ears: bilateral: normal - Neck Neck: no lymphadenopathy, normal ROM, no rigidity, no stridor, no thyromegaly Carotids: bilateral: upstroke normal Thyroid: bilateral: normal size - Respiratory Respiratory: bilateral: diminished, negative: dullness, rales, rhonchi, wheezing, prolonged expiration, prolonged inspiration - Cardiovascular Rhythm: regular Heart sounds: normal: S1, S2 Abnormal Heart Sounds: no systolic murmur, no rub, no S3 Gallop, no click - Gastrointestinal General gastrointestinal: decreased bowel sounds, soft, no splenomegaly, no tenderness, no umbilical hernia, no ventral hernia - Integumentary Integumentary: normal, normal turgor - Neurologic Neurologic: CNII-XII intact - Musculoskeletal Musculoskeletal: strength equal bilaterally. Small dressing in place of the left hip with no breakthrough bleeding drainage. No significant edema. - Psychiatric Psychiatric: A&O x's 3, appropriate affect, intact judgment & insight - Labs CBC & Chem 7: 12/29/18 06:58 08 06:58 Labs: Abnormal Lab Results - Last 24 Hours (Table) 12/29/18 12/29/18 Range/Units 06:58 06:58 WBC 15.9 H (3.8-10.6) k/uL RBC 2.79 L (3.80-5.40) m/uL Hgb 8.1 L (11.4-16.0) gm/dL Hct 24.7 L (34.0-46.0) % Neutrophils # 13.7 H (1.3-7.7) k/uL Glucose 108 H (74-99) mg/dL AST 67 H (14-36) U/L Total Protein 5.4 L (6.3-8.2) g/dL Albumin 3.0 L (3.5-5.0) g/dL Assessment and Plan Plan: 1. Post operative day #2 status post left total hip arthroplasty anterior approach. Continue current pain management as outlined by orthopedic surgery, continue to use the incentive spirometer to reduce the incidence of atelectasis and health care associated pneumonia, continue DVT prophylaxis with eliquis, physical therapy evaluation and recommending subacute rehab. 2. Hypertension and hypertensive cardiovascular disease. Continue losartan 100 mg orally once every day metoprolol 25 mg orally twice aday. 3. Hyperlipidemia. Continue patient on Lipitor 10 mg orally once every day. 4. Hypothyroidism. Continue Synthroid 50 g orally once every day. 5. Recurrent UTI. Monitor the patient UA. 6. Osteoarthritis. Continue current pain management. 7. History of CVA/TIA. Stable at this time. Continue with statin for secondary stroke prevention. 8. DVT prophylaxis. Currently on Lovenox 40 mg subcutaneously every 24 hours. 9. Postop nausea. IV fluid bolus given. Possible need for scopolamine patch if not resolving. 10. Paroxysmal atrial fibrillation. The patient has had atrial fibrillation in the past. This is not related to the surgery. Patient has been transferred to the cardiac stepdown unit and cardiology consult appreciated. Patient has been started on eliquis and 1 dose of Lopressor 25 mg stat, continue Lopressor 25 mg twice daily. 11. Acute blood loss anemia expected. Orthopedics has ordered 1 unit of packed RBCs. Recheck hemoglobin in the morning. Discharge plan: Subacute rehab, most likely tomorrow. Impression and plan of care have been directed as dictated by the signing physician. Cynthia Rahman nurse practitioner acting as scribe for signing physician.
[2018-12-29] MEDS: ATORVASTATIN 10 MG TAB PO SCH (20:28)
[2018-12-29] MEDS: SENNOSIDES-DOCUSATE SODIUM 1 EACH TAB PO SCH (21:10)
[2018-12-30] MEDS: FERROUS SULFATE 325 MG TAB PO SCH ×2 (06:41→12:47)
[2018-12-30] MEDS: LEVOTHYROXINE 50 MCG TAB PO SCH (06:41)
[2018-12-30] MEDS: LACTATED RINGERS 1,000 ML IV SCH (06:42)
[2018-12-30 07:19] LABS: Basophils % (A) 0 %; Eosinophils # (A) 0.3 k/uL (0-0.7); Eosinophils % (A) 2 %; HCT 28.6 % (34.0-46.0); HGB 9.1 gm/dL (11.4-16.0); Lymphocytes # (A) 1.2 k/uL (1.0-4.8); Lymphocytes % (A) 9 %; MCH 28.6 pg (25.0-35.0); MCHC 31.7 g/dL (31.0-37.0); MCV 90.2 fL (80.0-100.0); Monocytes # (A) 0.9 k/uL (0-1.0); Monocytes % (A) 7 %; Neutrophils # (A) 10.3 k/uL (1.3-7.7); Neutrophils % (A) 80 %; Platelet Count 249 k/uL (150-450); RBC 3.17 m/uL (3.80-5.40); RDW 14.7 % (11.5-15.5); WBC 12.8 k/uL (3.8-10.6)
[2018-12-30] MEDS: traMADol 50 MG TAB PO SCH ×4 (08:45→21:54)
[2018-12-30] MEDS: ONDANSETRON 4 MG/2 ML VIAL IVP PRN (08:45)
[2018-12-30] MEDS: MELOXICAM 7.5 MG TAB PO SCH (08:45)
[2018-12-30] MEDS: FAMOTIDINE 20 MG TAB PO SCH ×2 (08:45→12:37)
[2018-12-30] MEDS: METOPROLOL TARTRATE 25 MG TAB PO SCH ×2 (08:45→21:53)
[2018-12-30] MEDS: LOSARTAN 50 MG TAB PO SCH (08:45)
[2018-12-30] MEDS: APIXABAN 5 MG TAB PO SCH ×2 (08:45→21:53)
--- NOTE | 2018-12-30 10:00 | P.PN ---
Subjective Progress Note Date: 12/30/18 Principal diagnosis: Status post direct anterior lip total hip arthroplasty Patient evaluated today at bedside. Patient did have some nausea this morning, she relates this to taking her medications prior to eating. Pain is well- controlled. Objective - Vital Signs Vital signs: Vital Signs Temp 98.3 F 12/30/18 08:00 Pulse 66 12/30/18 08:00 Resp 18 12/30/18 08:00 BP 187/89 12/30/18 08:00 Pulse Ox 98 12/30/18 08:00 Intake & Output 12/29/18 12/30/18 12/30/18 18:59 06:59 18:59 Intake Total 1180 340 Output Total 850 Balance 330 340 Weight 74.5 kg Intake: IV 320 340 Lactated Ringers 1,000 ml 320 340 @ 40 mls/hr IV .Q24H [facility] Rx#:[id number] Oral 550 Blood Product 310 Rc Irr As1 Unit 310 [id number] Output: Urine 850 Other: Voiding Method Diaper Diaper Incontinent Incontinent # Voids 3 2 - Exam Left lower extremity: Incision is clean, dry, and intact. The exofin fusion tape is in good condition. There is minimal soft tissue swelling and ecchymosis surrounding the medial and lateral aspects of the incision. Calf is soft, no tenderness with palpation. Plantar flexion, dorsiflexion, EHL, FHL are intact. Sensory exam to light touch throughout the extremity is intact, dorsal pedis pulses 2+. - Labs CBC & Chem 7: 12/30/18 06:14 12/29/18 06:58 Labs: Abnormal Lab Results - Last 24 Hours (Table) 12/29/18 12/30/18 Range/Units 11:02 06:14 WBC 12.8 H (3.8-10.6) k/uL RBC 3.17 L (3.80-5.40) m/uL Hgb 9.1 L (11.4-16.0) gm/dL Hct 28.6 L (34.0-46.0) % Neutrophils # 10.3 H (1.3-7.7) k/uL Crossmatch See Detail Assessment and Plan Plan: Assessment: Postop day #3 status post direct anterior left total hip arthroplasty Acute blood loss anemia, expected surgical outcome Plan: Pain control, plan for discharge on Tylenol and tramadol GI and DVT prophylaxis, Eliquis 5mg bid Recommend incentive spirometer Continue with therapy, utilize walker at all times Medical recommendations Discharge planning: Plan for discharge today Time with Patient: Less than 30
[2018-12-30] MEDS: FLECAINIDE 50 MG TAB PO SCH ×2 (10:10→21:53)
[2018-12-30 12:07] LABS: Glucose,Whole Blood 108 mg/dL (75-99)
--- NOTE | 2018-12-30 12:57 | PN ---
PROGRESS NOTE Mrs. James is a 78-year-old female who underwent hip surgery, had an episode of atrial fibrillation postoperatively. She is still in sinus mechanism, but she had episode of PACs. She is complaining of nausea after the iron pill. She is denying any chest pain. No dizziness. No palpitation. She is unaware of the arrhythmia. She had an echocardiogram done and revealed preserved left ventricular size and systolic function with mild mitral and tricuspid regurgitation. She continues to be at this time on Eliquis 5 mg twice a day, Lipitor 10 mg daily, losartan 100 mg daily, metoprolol tartrate 25 mg twice a day. PHYSICAL EXAMINATION: Blood pressure 146/60 with the heart rate in the 70s. LUNGS: Clear. HEART: Regular rate and rhythm. S1, S2. No S3 with extra systole. No rub. ABDOMEN: Soft, nontender. Positive bowel sounds. EXTREMITIES: No significant edema. LAB DATA: Lab data revealed a TSH of 3.5, hemoglobin of 9.1. IMPRESSION: 1. Status post total hip arthroplasty. 2. Paroxysmal atrial fibrillation, back in sinus mechanism. 3. Hypertension. 4. Hyperlipidemia. 5. Prior history of transient ischemic attack. RECOMMENDATION: From the cardiac standpoint, I will continue present therapy. Her nausea appears to be related to the iron pill. I would add to her regimen flecainide 50 mg twice a day to see if we can maintain sinus mechanism. I will follow her EKG and depending on her progress, further recommendation will be made. MMODL / IJN: [id number] /
--- NOTE | 2018-12-30 14:51 | P.PN ---
Subjective Progress Note Date: 12/30/18 This is a 78-year-old female one of Dr. Khan with a previous medical history significant for hypertension and hypertensive cardiovascular disease, hyperlipidemia, osteoarthritis, hypothyroidism, recurrent UTI, history of TIA/CVA, patient underwent left total hip arthroplasty anterior approach, she is laying down in bed in no apparent distress she denies any chest pain or shortness breath, she has no abdominal pain, nausea or vomiting , she is complaining of increased pain in the left hip and she is feeling behind her left ear as well she will be given some pain medicine at this point in time, she was instructed about the use of incentive spirometer, she will be followed during her hospital stay. 12/28: Patient had nausea this morning when working with physical therapy and vomiting in the bathroom. She also had another episode of vomiting after she returned to the chair and these were both after Zofran was given this morning. Patient denies having any dizziness. She did have another episode of nausea with ambulation. We have ordered a fluid bolus of 500ml of IV fluids. If n ecessary, scopolamine patch will be ordered. Patient's discharge plan is to return home with homecare which will most likely occur tomorrow. 12/29: This morning, patient had episode of atrial fibrillation was transferred to the cardiac stepdown unit and cardiology consult was requested. Patient did transition to a normal sinus rhythm. Apparently patient does have history of A. fib and was advised to take anticoagulation for stroke prevention but she did not. She is agreeable at this point. Heart rate is in the 70s, pulse ox 93% on room air, blood pressure 118/60. White count 15.9, hemoglobin 8.1, potassium 4.0 and sodium 140, creatinine 0.8, magnesium 2. The patient does state she had been episode of small amount of vomiting. She states she is passing gas but no bowel movement. Orthopedics has ordered for transfusion 1 unit packed RBCs. Social work has been consult regarding discharge planning as PT is recommending subacute rehab. 12/30: Patient has been in a sinus rhythm running in the 60s and 70s, blood pressure 139/67, pulse ox 97% on room air. Repeat lab work reveals white count of 12.8, hemoglobin 9.1. TSH 3.450. Blood sugar 108. The patient does not wish to receive stool softener nor ferrous sulfate which will be discontinued. Medication reconciliation has been completed for discharge to subacute rehab today. Patient will be going to [facility] under the care of Dr. Shah. Patient is medically clear for discharge. Objective - Vital Signs Vital signs: Vital Signs Temp 98.3 F 12/30/18 08:00 Pulse 66 12/30/18 08:00 Resp 18 12/30/18 08:00 BP 187/89 12/30/18 08:00 Pulse Ox 98 12/30/18 08:00 Intake & Output 12/29/18 12/30/18 12/30/18 18:59 06:59 18:59 Intake Total 1180 340 Output Total 850 Balance 330 340 Weight 74.5 kg Intake: IV 320 340 Lactated Ringers 1,000 ml 320 340 @ 40 mls/hr IV .Q24H [facility] Rx#:[id number] Oral 550 Blood Product 310 Rc Irr As1 Unit 310 [id number] Output: Urine 850 Other: Voiding Method Diaper Diaper Incontinent Incontinent # Voids 3 2 - Exam Review of Systems Constitutional: Denies chills, Denies lethargy, Denies malaise, Denies weakness, Denies weight gain Eyes: denies as per HPI, denies blurred vision, denies bulging eye Ears: deny: decreased hearing Ears, nose, mouth and throat: Denies dysphagia, Denies neck lump, Denies swelling in throat, Denies sore throat Cardiovascular: Denies high blood pressure, Denies chest pain, Denies decreased exercise tolerance, Denies dyspnea on exertion, Denies lightheadedness, Denies rapid heart beat, Denies shortness of breath, Respiratory: Denies congestion, Denies cough, Denies cough with sputum, Denies home oxygen, Denies sleep apnea, Denies snoring, Denies wheezing Gastrointestinal: Denies abdominal pain, Denies belching, Denies bloating, Denies heartburn, Denies hematemesis, Denies loss of appetite, Denies melena, reports nausea, reports vomiting-continued Genitourinary: Denies dysuria, Denies stress incontinence, Denies urgency Menstruation: Reports postmenopausal Musculoskeletal: Denies myalgias Musculoskeletal: left: hip pain, hip stiffness, knee pain, absent: ankle pain, ankle stiffness, ankle swelling, elbow pain, elbow stiffness, elbow swelling, foot pain, foot stiffness, foot swelling, hand pain, hand stiffness, hand swelling, hip swelling, knee stiffness, knee swelling, shoulder pain, shoulder stiffness, shoulder swelling, wrist pain, wrist stiffness, wrist swelling Integumentary: Denies pruritus, Denies rash Neurological: Denies numbness, Denies weakness Psychiatric: Denies anxiety, Denies depression Endocrine: Denies fatigue, Denies weight change Physical exam: - Constitutional General appearance: average body habitus, no acute distress - EENT Eyes: anicteric sclerae, EOMI, PERRLA, no ptosis, conjunctiva pale ENT: hearing grossly normal, NA/AT, normal oropharynx, no thrush Ears: bilateral: normal - Neck Neck: no lymphadenopathy, normal ROM, no rigidity, no stridor, no thyromegaly Carotids: bilateral: upstroke normal Thyroid: bilateral: normal size - Respiratory Respiratory: bilateral: diminished, negative: dullness, rales, rhonchi, w heezing, prolonged expiration, prolonged inspiration - Cardiovascular Rhythm: regular Heart sounds: normal: S1, S2 Abnormal Heart Sounds: no systolic murmur, no rub, no S3 Gallop, 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 Small dressing in place of the le ft hip with no breakthrough bleeding drainage. No significant edema. - Psychiatric Psychiatric: A&O x's 3, appropriate affect, intact judgment & insight - Labs CBC & Chem 7: 12/30/18 06:14 12/29/18 06:58 Labs: Abnormal Lab Results - Last 24 Hours (Table) 12/29/18 12/30/18 Range/Units 11:02 06:14 WBC 12.8 H (3.8-10.6) k/uL RBC 3.17 L (3.80-5.40) m/uL Hgb 9.1 L (11.4-16.0) gm/dL Hct 28.6 L (34.0-46.0) % Neutrophils # 10.3 H (1.3-7.7) k/uL Crossmatch See Detail Assessment and Plan Plan: 1. Post operative day #3 status post left total hip arthroplasty anterior approach. Continue current pain management as outlined by orthopedic surgery, continue to use the incentive spirometer to reduce the incidence of atelectasis and health care associated pneumonia, continue DVT prophylaxis with eliquis, physical therapy evaluation and recommending subacute rehab. 2. Hypertension and hypertensive cardiovascular disease. Continue losartan 100 mg orally once every day metoprolol 25 mg orally twice aday. 3. Hyperlipidemia. Continue patient on Lipitor 10 mg orally once every day. 4. Hypothyroidism. Continue Synthroid 50 g orally once every day. 5. Recurrent UTI. Monitor the patient UA. 6. Osteoarthritis. Continue current pain management. 7. History of CVA/TIA. Stable at this time. Continue with statin for secondary stroke prevention. 8. DVT prophylaxis. Eliquis. 9. Postop nausea. IV fluid bolus given. Improved 10. Paroxysmal atrial fibrillation. Continue Lopressor 25 mg twice daily, flecainide 50 mg twice daily, eliquis 5 mg twice daily. 11. Acute blood loss anemia expected. Status post 1 unit of packed RBCs. Hemoglobin stable. Discharge plan: [facility] under the care of Dr. Shah. Impression and plan of care have been directed as dictated by the signing physician. Cynthia Rahman nurse practitioner acting as scribe for signing physician.
[2018-12-30 14:52] VITALS: RESP 16
[2018-12-30 17:14] LABS: Glucose,Whole Blood 103 mg/dL (75-99)
[2018-12-30] MEDS: ACETAMINOPHEN TAB 325 MG TAB PO PRN (21:52)
[2018-12-30] MEDS: ATORVASTATIN 10 MG TAB PO SCH (21:53)
[2018-12-30] MEDS: SENNOSIDES-DOCUSATE SODIUM 1 EACH TAB PO SCH (21:54)
[2018-12-31] MEDS: ACETAMINOPHEN TAB 325 MG TAB PO PRN (03:42)
[2018-12-31] MEDS: FERROUS SULFATE 325 MG TAB PO SCH (05:44)
[2018-12-31] MEDS: LEVOTHYROXINE 50 MCG TAB PO SCH (05:44)
[2018-12-31 07:28] LABS: Basophils % (A) 0 %; Eosinophils # (A) 0.2 k/uL (0-0.7); Eosinophils % (A) 2 %; HCT 29.1 % (34.0-46.0); HGB 9.3 gm/dL (11.4-16.0); Lymphocytes # (A) 1.4 k/uL (1.0-4.8); Lymphocytes % (A) 12 %; MCH 28.1 pg (25.0-35.0); MCHC 32.1 g/dL (31.0-37.0); MCV 87.7 fL (80.0-100.0); Mean Platelet Volume 7.3; Monocytes # (A) 0.7 k/uL (0-1.0); Monocytes % (A) 6 %; Neutrophils % (A) 79 %; Platelet Count 297 k/uL (150-450); RBC 3.32 m/uL (3.80-5.40); RDW 14.5 % (11.5-15.5); WBC 11.4 k/uL (3.8-10.6)
[2018-12-31 07:32] LABS: Potassium 4.1 mmol/L (3.5-5.1)
[2018-12-31 08:24] VITALS: BP 167/92; PULSE 65; TEMP 98.7
[2018-12-31] MEDS: FLECAINIDE 50 MG TAB PO SCH (08:26)
[2018-12-31] MEDS: METOPROLOL TARTRATE 25 MG TAB PO SCH (08:26)
[2018-12-31] MEDS: traMADol 50 MG TAB PO SCH ×2 (08:26→14:12)
[2018-12-31] MEDS: LOSARTAN 50 MG TAB PO SCH (08:26)
[2018-12-31] MEDS: FAMOTIDINE 20 MG TAB PO SCH (08:26)
[2018-12-31] MEDS: APIXABAN 5 MG TAB PO SCH (08:26)
[2018-12-31] MEDS: MELOXICAM 7.5 MG TAB PO SCH (08:30)
--- NOTE | 2018-12-31 08:31 | P.PN ---
Subjective Progress Note Date: 12/31/18 Principal diagnosis: Status post direct anterior lip total hip arthroplasty Patient evaluated today at bedside. Pain is well-controlled. Objective - Vital Signs Vital signs: Vital Signs Temp 98.7 F 12/31/18 08:00 Pulse 65 12/31/18 08:00 Resp 16 12/31/18 08:00 BP 167/92 12/31/18 08:00 Pulse Ox 99 12/31/18 08:00 Intake & Output 12/30/18 12/31/18 12/31/18 18:59 06:59 18:59 Intake Total 240 Balance 240 Weight 70.307 kg Intake: Oral 240 Other: Voiding Method Incontinent # Voids 1 - Exam Left lower extremity: Incision is clean, dry, and intact. The exofin fusion tape is in good condition. There is minimal soft tissue swelling and ecchymosis surrounding the medial and lateral aspects of the incision. Calf is soft, no tenderness with palpation. Plantar flexion, dorsiflexion, EHL, FHL are intact. Sensory exam to light touch throughout the extremity is intact, dorsal pedis pulses 2+. - Labs CBC & Chem 7: 12/31/18 05:50 12/31/18 05:47 Labs: Abnormal Lab Results - Last 24 Hours (Table) 12/29/18 12/30/18 12/30/18 Range/Units 11:02 11:57 17:12 WBC (3.8-10.6) k/uL RBC (3.80-5.40) m/uL Hgb (11.4-16.0) gm/dL Hct (34.0-46.0) % Neutrophils # (1.3-7.7) k/uL POC Glucose (mg/dL) 108 H 103 H (75-99) mg/dL Crossmatch See Detail 12/31/18 Range/Units 05:50 WBC 11.4 H (3.8-10.6) k/uL RBC 3.32 L (3.80-5.40) m/uL Hgb 9.3 L (11.4-16.0) gm/dL Hct 29.1 L (34.0-46.0) % Neutrophils # 9.0 H (1.3-7.7) k/uL POC Glucose (mg/dL) (75-99) mg/dL Crossmatch Assessment and Plan Plan: Assessment: Postop day #4 status post direct anterior left total hip arthroplasty Acute blood loss anemia, expected surgical outcome Plan: Pain control, plan for discharge on Tylenol and tramadol GI and DVT prophylaxis, Eliquis 5mg bid Recommend incentive spirometer Continue with therapy, utilize walker at all times Medical recommendations A sign med rec we placed in chart, if cardiology does change medications please update med rec list Discharge planning: Plan for discharge today Time with Patient: Less than 30
--- NOTE | 2018-12-31 08:33 | P.DS ---
Providers Date of admission: 12/27/18 06:53 Expected date of discharge: 12/31/18 Attending physician: Jorge Bailey Consults: 12/27/18 09:46 Consult Physician Routine Consulting Provider: Radha Khan Consult Reason/Comments: Medical Management Do you want consulting provider notified?: Yes Primary care physician: Radha Khan MD Hospital Course: Date of admission: 12/27/2018 Date of discharge: 12/31/2018 Admission diagnosis: Status post right anterior left total hip arthroplasty Discharge diagnosis: Same Attending physician: Dr. Bailey Surgical procedures: Direct anterior left total hip arthroplasty Brief history: Patient is a 78-year-old female with a history of progressive primary left hip osteoarthritis. At this point patient has failed conservative treatment measures and has opted to proceed with a elective direct anterior left total hip arthroplasty. Hospital course: Details of patient's surgery can be found in operative report. Patient tolerated the procedure well and was subsequently transported to orthopedic floor. Patient's orthopeidc and medical care was provided daily. Patient had daily laboratory tests performed for evaluation of overall blood counts. Patient had daily physical therapy to include strengthening range of motion as well as education with walker ambulation. Patient was treated with Lovenox for their postoperative DVT prophylaxis during their inpatient stay. Patient was noted to have a relatively uneventful postoperative course. Patient reported satisfactory pain control with oral pain medications by postoperative day 0. Patient showed satisfactory progress with physical therapy. Patient moved steadily through the program and had no difficulty meeting the goals by postoperative day 4. Given patient's otherwise satisfactory course and having met physical therapy goals, plan is to discharge patient rehab on postoperative day 4. Discharge condition/disposition: Patient will be discharged to rehab in stable condition. Discharge medications: Instructions are given on resumption of patient's normal daily medications per primary care recommendation, in addition patient will be prescribed tramadol 50 mg, Colace 100 mg, Eliquis 5mg, Pepcid 20 mg, Tylenol 650 mg, ferrous sulfate 325 mg. Discharge instructions: 1. Wound care and infection precautions, keep incision dry and covered while showering, no lotions, creams, moisturizers. No soaking, tubs, pools, hottubs. Do not scrub over the incision. 2. Weight-bear as tolerated with walker / cane until follow-up. 3. Ice and elevate when necessary. Do not exceed 20 minutes per hour with ice pack. 4. Utilize compression sleeve until seen at first follow up appointment. 5. Visiting nursing care. 6. Home physical therapy. 7. Pain meds and anticoagulants per prescription. 8. Pain medication has potential to cause constipation. Increase oral fluid and fiber intake. Contact primary care provider if you have not had a bowel movement within 48 hours after discharge 9. No anti-inflammatory medication until discussed at first post operative visit, this including Motrin, Aleve, Mobic, Diclofenac. 10. Follow up in office at 2 weeks postop with Keaton Coffey PA-C 11. Follow up with your primary care doctor 7-10 days after discharge. 12. Contact [facility] with any questions, . Procedures: Direct anterior left total hip arthroplasty Patient Condition at Discharge: Good Plan - Discharge Summary Discharge Rx Participant: Yes New Discharge Prescriptions: New Apixaban [Eliquis] 5 mg PO BID #30 tab Famotidine [Pepcid] 20 mg PO DAILY #30 tablet Acetaminophen Tab [Tylenol Tab] 650 mg PO Q6H PRN #30 tablet PRN Reason: Pain traMADol HCl [Ultram] 50 mg PO Q6H PRN #28 tab PRN Reason: Pain Metoprolol Tartrate [Lopressor] 25 mg PO BID #60 tab Flecainide [Tambocor] 50 mg PO Q12HR #60 tab Ferrous Sulfate [Feosol] 325 mg PO BID #30 tab Continue Losartan Potassium [Cozaar] 100 mg PO DAILY Levothyroxine Sodium [Synthroid] 50 mcg PO DAILY Simvastatin [Zocor] 20 mg PO HS Calcium Carbonate [Calcium] 600 mg PO DAILY Discontinued Aspirin [Adult Low Dose Aspirin EC] 81 mg PO HS Calcium(Dose Unknown) 1 tab PO DAILY Metoprolol Tartrate [Lopressor] 25 mg PO DAILY@1200 Macrobid(Dose Unknown) 1 tab PO BID Nitrofurantoin Monohyd/M-Cryst [Macrobid] 100 mg PO Q12HR Discharge Medication List Levothyroxine Sodium [Synthroid] 50 mcg PO DAILY 12/21/18 [History] Losartan Potassium [Cozaar] 100 mg PO DAILY 12/21/18 [History] Simvastatin [Zocor] 20 mg PO HS 12/21/18 [History] Calcium Carbonate [Calcium] 600 mg PO DAILY 12/27/18 [History] Acetaminophen Tab [Tylenol Tab] 650 mg PO Q6H PRN #30 tablet 12/30/18 [Rx] Apixaban [Eliquis] 5 mg PO BID #30 tab 12/30/18 [Rx] Famotidine [Pepcid] 20 mg PO DAILY #30 tablet 12/30/18 [Rx] Flecainide [Tambocor] 50 mg PO Q12HR #60 tab 12/30/18 [Rx] Metoprolol Tartrate [Lopressor] 25 mg PO BID #60 tab 12/30/18 [Rx] traMADol HCl [Ultram] 50 mg PO Q6H PRN #28 tab 12/30/18 [Rx] Ferrous Sulfate [Feosol] 325 mg PO BID #30 tab 12/31/18 [Rx] Follow up Appointment(s)/Referral(s): Radha Khan MD [Primary Care Provider] - 1 Week [facility], [NON-STAFF] - As Needed Jorge Bailey MD [STAFF PHYSICIAN] - 01/11/19 11:10 am Activity/Diet/Wound Care/Special Instructions: Orthopedic Discharge Instructions: 1. Wound care and infection precautions, keep incision dry and covered while showering, no lotions, creams, moisturizers. No soaking, pools, hot tubs. Do not scrub over incision. 2. Weight-bear as tolerated with walker / cane until follow-up. 3. Ice and elevate when necessary. Do not exceed 20 minutes per hour with ice pack. 4. Utilize compression sleeve until seen at first follow up appointment. 5. Pain meds and anticoagulants per prescription. 6. Pain medication has potential to cause constipation. Increase oral fluid and fiber intake. Contact primary care provider if you have not had a bowel movement within 48 hours after discharge. 7. No anti-inflammatory medication until discussed at first post operative visit, this including Motrin, Aleve, Mobic, Diclofenac. 8. Follow up in office at 2 weeks postop with Keaton Coffey PA-C 9. Follow up with your primary care doctor 7-10 days after discharge. 10. Contact [facility] with any questions, . Discharge Disposition: TRANSFER TO SNF/ECF
[2018-12-31] MEDS: LACTATED RINGERS 1,000 ML IV SCH (08:34)
--- NOTE | 2018-12-31 12:28 | P.PN ---
Subjective Progress Note Date: 12/31/18 Physical pleasant 28-year-old female who underwent hip surgery. She had an episode of atrial fibrillation postoperatively. She is maintaining sinus rhythm but does have episodes of PACs. She is complaining of nausea after her iron pill. She denies any chest discomfort, dizziness, palpitations or any awareness of arrhythmia. Echocardiogram did reveal preserved LV systolic function with mild MR and mild TR. She continues to be on Eliquis 5 mg by mouth twice a day, Lipitor 10 mg by mouth daily, losartan 100 mg by mouth daily metoprolol tartrate 25 mg by mouth twice a day. Upon examination this morning she overall seems to be feeling well except for nausea following her medications. Labs this morning show a white blood cell count of 11,000, hemoglobin of 9.3, potassium 4.1 and BUN 16 with a creatinine of 0.82. Of note she does have a normal TSH. Objective - Vital Signs Vital signs: Vital Signs Temp 98.7 F 12/31/18 08:00 Pulse 65 12/31/18 08:00 Resp 16 12/31/18 08:00 BP 167/92 12/31/18 08:00 Pulse Ox 99 12/31/18 08:00 Intake & Output 12/30/18 12/31/18 12/31/18 18:59 06:59 18:59 Intake Total 240 Balance 240 Weight 70.307 kg Intake: Oral 240 Other: Voiding Method Incontinent # Voids 1 - Exam PHYSICAL EXAMINATION: HEENT: Head is atraumatic, normocephalic. Pupils equal, round. Neck is supple. There is no elevated jugular venous pressure. HEART EXAMINATION: Heart sounds regular, S1 and S2 normal. No murmur or gallop heard. CHEST EXAMINATION: Lungs are clear to auscultation and precussion. No chest wall tenderness is noted on palpation or with deep breathing. ABDOMEN: Soft, nontender. Bowel sounds are heard. No organomegaly noted. EXTREMITIES: 2+ peripheral pulses with no evidence of peripheral edema and no calf tenderness noted. NEUROLOGIC patient is awake, alert and oriented x3. - Labs CBC & Chem 7: 12/31/18 05:50 12/31/18 05:47 Labs: Abnormal Lab Results - Last 24 Hours (Table) 12/29/18 12/30/18 12/31/18 Range/Units 11:02 17:12 05:50 WBC 11.4 H (3.8-10.6) k/uL RBC 3.32 L (3.80-5.40) m/uL Hgb 9.3 L (11.4-16.0) gm/dL Hct 29.1 L (34.0-46.0) % Neutrophils # 9.0 H (1.3-7.7) k/uL POC Glucose (mg/dL) 103 H (75-99) mg/dL Crossmatch See Detail Assessment and Plan Assessment: #1 status post total hip arthroplasty #2 paroxysmal atrial fibrillation, currently maintaining sinus rhythm #3 hypertension #4 hyperlipidemia #5 prior history of TIA Plan: From cardiology perspective, medications were reviewed and will continue the same. Her nausea appears to be related to her iron pill. From our standpoint, patient is stable for discharge to rehab. We'll follow up with her in the office in about 2-3 weeks. SIGNAL TOWER DIRECTOR note has been reviewed, I agree with a documented findings and plan of care. Patient was seen and examined.
--- NOTE | 2018-12-31 22:45 | P.PN ---
Subjective Progress Note Date: 12/31/18 This is a 78-year-old female one of Dr. Khan with a previous medical history significant for hypertension and hypertensive cardiovascular disease, hyperlipidemia, osteoarthritis, hypothyroidism, recurrent UTI, history of TIA/CVA, patient underwent left total hip arthroplasty anterior approach, she is laying down in bed in no apparent distress she denies any chest pain or shortness breath, she has no abdominal pain, nausea or vomiting , she is complaining of increased pain in the left hip and she is feeling behind her left ear as well she will be given some pain medicine at this point in time, she was instructed about the use of incentive spirometer, she will be followed during her hospital stay. 12/28: Patient had nausea this morning when working with physical therapy and vomiting in the bathroom. She also had another episode of vomiting after she returned to the chair and these were both after Zofran was given this morning. Patient denies having any dizziness. She did have another episode of nausea with ambulation. We have ordered a fluid bolus of 500ml of IV fluids. If necessary, scopolamine patch will be ordered. Patient's discharge plan is to return home with homecare which will most likely occur tomorrow. 12/29: This morning, patient had episode of atrial fibrillation was transferred to the cardiac stepdown unit and cardiology consult was requested. Patient did transition to a normal sinus rhythm. Apparently patient does have history of A. fib and was advised to take anticoagulation for stroke prevention but she did not. She is agreeable at this point. Heart rate is in the 70s, pulse ox 93% on room air, blood pressure 118/60. White count 15.9, hemoglobin 8.1, potassium 4.0 and sodium 140, creatinine 0.8, magnesium 2. The patient does state she had been episode of small amount of vomiting. She states she is passing gas but no bowel movement. Orthopedics has ordered for transfusion 1 unit packed RBCs. Social work has been consult regarding discharge planning as PT is recommending subacute rehab. 12/30: Patient has been in a sinus rhythm running in the 60s and 70s, blood pressure 139/67, pulse ox 97% on room air. Repeat lab work reveals white count of 12.8, hemoglobin 9.1. TSH 3.450. Blood sugar 108. The patient does not wish to receive stool softener nor ferrous sulfate which will be discontinued. Medication reconciliation has been completed for discharge to subacute rehab today. Patient will be going to [facility] under the care of Dr. Shah. Patient is medically clear for discharge. 12/31 patient's doing well, no lightheadedness no dizziness, she is anticipated to be discharged to [facility] today for subacute rehab, pulse ox is 98%, no palpitations no shortness of breath, appetite is good Review of Systems Constitutional: Denies chills, Denies lethargy, Denies malaise, Denies weakness, Denies weight gain Eyes: denies as per HPI, denies blurred vision, denies bulging eye Ears: deny: decreased hearing Ears, nose, mouth and throat: Denies dysphagia, Denies neck lump, Denies swelling in throat, Denies sore throat Cardiovascular: Denies high blood pressure, Denies chest pain, Denies decreased exercise tolerance, Denies dyspnea on exertion, Denies lightheadedness, Denies rapid heart beat, Denies shortness of breath, Respiratory: Denies congestion, Denies cough, Denies cough with sputum, Denies home oxygen, Denies sleep apnea, Denies snoring, Denies wheezing Gastrointestinal: Denies abdominal pain, Denies belching, Denies bloating, Denies heartburn, Denies hematemesis, Denies loss of appetite, Denies melena, reports nausea, reports vomiting-continued Genitourinary: Denies dysuria, Denies stress incontinence, Denies urgency Menstruation: Reports postmenopausal Musculoskeletal: Denies myalgias Musculoskeletal: left: hip pain, hip stiffness, knee pain, absent: ankle pain, ankle stiffness, ankle swelling, elbow pain, elbow stiffness, elbow swelling, foot pain, foot stiffness, foot swelling, hand pain, hand stiffness, hand swelling, hip swelling, knee stiffness, knee swelling, shoulder pain, shoulder stiffness, shoulder swelling, wrist pain, wrist stiffness, wrist swelling Integumentary: Denies pruritus, Denies rash Neurological: Denies numbness, Denies weakness Psychiatric: Denies anxiety, Denies depression Endocrine: Denies fatigue, Denies weight change Objective - Vital Signs Vital signs: Vital Signs Temp 98.7 F 12/31/18 08:00 Pulse 65 12/31/18 08:00 Resp 16 12/31/18 08:00 BP 167/92 08/24/19 08:00 Pulse Ox 99 12/31/18 08:00 Intake & Output 12/30/18 12/31/18 12/31/18 18:59 06:59 18:59 Intake Total 240 Balance 240 Weight 70.307 kg Intake: Oral 240 Other: Voiding Method Incontinent # Voids 1 - Constitutional General appearance: Present: cooperative, no acute distress - EENT Eyes: Present: anicteric sclerae, EOMI, PERRLA, dentition normal ENT: Present: NA/AT, normal oropharynx - Respiratory Respiratory: bilateral: CTA, diminished - Cardiovascular Rhythm: regular - Gastrointestinal General gastrointestinal: Present: normal bowel sounds, soft - Integumentary Integumentary: Present: normal (Incision is intact without any dehiscence trace edema and leg left) - Neurologic Neurologic: Present: CNII-XII intact - Musculoskeletal Musculoskeletal: Present: generalized weakness, strength equal bilaterally - Psychiatric Psychiatric: Present: A&O x's 3 - Labs CBC & Chem 7: 12/31/18 05:50 12/31/18 05:47 Labs: Abnormal Lab Results - Last 24 Hours (Table) 12/29/18 12/30/18 12/31/18 Range/Units 11:02 17:12 05:50 WBC 11.4 H (3.8-10.6) k/uL RBC 3.32 L (3.80-5.40) m/uL Hgb 9.3 L (11.4-16.0) gm/dL Hct 29.1 L (34.0-46.0) % Neutrophils # 9.0 H (1.3-7.7) k/uL POC Glucose (mg/dL) 103 H (75-99) mg/dL Crossmatch See Detail Assessment and Plan Plan: 1. Post operative day #4 status post left total hip arthroplasty anterior approach. Continue current pain management as outlined by orthopedic surgery, continue to use the incentive spirometer to reduce the incidence of atelectasis and health care associated pneumonia, continue DVT prophylaxis with eliquis, physical therapy evaluation and recommending subacute rehab. 2. Hypertension and hypertensive cardiovascular disease. Continue losartan 100 mg orally once every day metoprolol 25 mg orally twice aday. 3. Hyperlipidemia. Continue patient on Lipitor 10 mg orally once every day. 4. Hypothyroidism. Continue Synthroid 50 g orally once every day. 5. Recurrent UTI. Monitor the patient UA. 6. Osteoarthritis. Continue current pain management. 7. History of CVA/TIA. Stable at this time. Continue with statin for secondary stroke prevention. 8. DVT prophylaxis. Eliquis. 9. Postop nausea. IV fluid bolus given. Improved 10. Paroxysmal atrial fibrillation. Continue Lopressor 25 mg twice daily, flecainide 50 mg twice daily, eliquis 5 mg twice daily. 11. Acute blood loss anemia expected. Status post 1 unit of packed RBCs. Hemoglobin stable. Multivitamin with iron, if ferrous sulfate 325 mg twice a day is not tolerated Discharge plan: [facility] under the care of Dr. Shah.
== END 2018-12-31 15:56 | DRG 470 ==
LOC: 2ORMAIN 06:53 → 4SSUR 10:00 → 3SCARD 12-29 06:26
PROVIDERS: ADMIT Orthopaedic Surgery; ATTEND Orthopaedic Surgery
PROC: 0SRB0JA Replacement of Left Hip Joint with Synthetic Substitute, Uncemented, Open Approach (ICD-10-PCS; principal; 2018-12-27 08:00)
PROC: 30233N1 Transfusion of Nonautologous Red Blood Cells into Peripheral Vein, Percutaneous Approach (ICD-10-PCS; 2018-12-28)
DX: M16.12 Unilateral primary osteoarthritis, left hip (principal); D62 Acute posthemorrhagic anemia; E03.9 Hypothyroidism, unspecified; D64.9 Anemia, unspecified; I08.1 Rheumatic disorders of both mitral and tricuspid valves; M19.90 Unspecified osteoarthritis, unspecified site; I11.9 Hypertensive heart disease without heart failure; I48.0 Paroxysmal atrial fibrillation; E78.5 Hyperlipidemia, unspecified; R11.0 Nausea; Z82.49 Family history of ischemic heart disease and other diseases of the circulatory system; Z87.440 Personal history of urinary (tract) infections; Z98.51 Tubal ligation status; Z98.42 Cataract extraction status, left eye; Z98.41 Cataract extraction status, right eye; Z90.89 Acquired absence of other organs; Z98.890 Other specified postprocedural states; Z88.2 Allergy status to sulfonamides; Z86.73 Personal history of transient ischemic attack (TIA), and cerebral infarction without residual deficits; Z79.82 Long term (current) use of aspirin; Z79.890 Hormone replacement therapy; Z79.899 Other long term (current) drug therapy; Z79.01 Long term (current) use of anticoagulants
CPT/HCPCS: 73501; 80048; 80053; 83735; 84443; 85025; 85610; 86850; 86891; 86900; 86901; 86920; 88300; 93005; 93306

== ENCOUNTER 2019-01-18 15:54 | Inpatient (IN) | payer MEDICARE ==
[2019-01-18] MEDS ORDERED: SODIUM CHLORIDE 0.9% 1,000 ML IV STA ×2 (16:03)
[2019-01-18] MEDS ORDERED: ONDANSETRON 4 MG/2 ML VIAL IVP STA (16:03)
--- NOTE | 2019-01-18 16:55 | ED ---
Dizziness HPI - General Chief Complaint: Dizziness Stated Complaint: Dizziness Time Seen by Provider: 01/18/19 16:03 Source: patient, RN notes reviewed, old records reviewed Mode of arrival: wheelchair Limitations: no limitations - History of Present Illness Initial Comments: This is an 79-year-old female the ER for evaluation. Today she presents for e valuation regards to not feeling well. Patient's complaining of leg pain left leg swelling. She has left leg swelling postop left hip replacement. Patient has no current shortness of breath no chest pain no cough or congestion. She states has felt like her heart is racing episodically. Patient has not had a diagnosis of H of fibrillation but may have times been in and out of it per her . Patient is not currently blood thinners. She is also complaining of increased pain left lower extremity. Weakness and incontinence of urine. States that she has had history of urinary tract infections. Symptoms are increasing over last 2-3 days. MD Complaint: dizziness, lightheadedness -: days(s) Timing: gradual onset Description: other (Weakness) History of Same: No History of Trauma: No Improves With: remaining still Worsens With: movement, exertion Associated Symptoms: fever/chills, shortness of breath, weakness - Related Data Home Medications Medication Instructions Recorded Confirmed Levothyroxine Sodium [Synthroid] 50 mcg PO DAILY 12/21/18 01/18/19 Losartan Potassium [Cozaar] 100 mg PO DAILY 12/21/18 01/18/19 Simvastatin [Zocor] 20 mg PO HS 12/21/18 01/18/19 traMADol HCl [Ultram] 25 - 50 mg PO Q6H PRN 01/18/19 01/18/19 Previous Rx's Medication Instructions Recorded Acetaminophen Tab [Tylenol Tab] 650 mg PO Q6H PRN #30 tablet 12/30/18 Apixaban [Eliquis] 5 mg PO BID #30 tab 12/30/18 Flecainide [Tambocor] 50 mg PO Q12HR #60 tab 12/30/18 Metoprolol Tartrate [Lopressor] 25 mg PO BID #60 tab 12/30/18 Allergies Allergy/AdvReac Type Severity Reaction Status Date / Time Sulfa (Sulfonamide Allergy Rash/Hives Verified 01/18/19 16:22 Antibiotics) Review of Systems ROS Statement: Those systems with pertinent positive or pertinent negative responses have been documented in the HPI. ROS Other: All systems not noted in ROS Statement are negative. Past Medical History Past Medical History: CVA/TIA, Hyperlipidemia, Hypertension, Osteoarthritis (OA), Thyroid Disorder Additional Past Medical History / Comment(s): chronic UTI's, TIA 2002-no effects, on rx for UTI, History of Any Multi-Drug Resistant Organisms: None Reported Past Surgical History: Joint Replacement, Orthopedic Surgery, Tonsillectomy, Tubal Ligation Additional Past Surgical History / Comment(s): rt great toe surgery, mass removed from left great toe, elliot cataracts, left eye laser surgery, left hip replacement Past Anesthesia/Blood Transfusion Reactions: Motion Sickness Past Psychological History: Anxiety Smoking Status: Never smoker Past Alcohol Use History: None Reported Past Drug Use History: None Reported - Past Family History Mother Family Medical History: Coronary Artery Disease (CAD) ( Mother at age of 82 from CAD and she also had osteoarthritis.) Father Family Medical History: Myocardial Infarction (NE) (Father at age of 82 from NE.) Sister(s) Family Medical History: No Reported History (Patient has one sister no major medical problems.) Son(s) Family Medical History: No Reported History (Patient has 2 sons no major medical problems.) Daughter(s) Family Medical History: No Reported History (Patient has one daughter no major medical problems.) General Exam Limitations: no limitations General appearance: alert, in no apparent distress Head exam: Present: atraumatic, normocephalic, normal inspection Eye exam: Present: normal appearance, PERRL, EOMI. Absent: scleral icterus, conjunctival injection, periorbital swelling ENT exam: Present: normal exam, mucous membranes moist Neck exam: Present: normal inspection. Absent: tenderness, meningismus, lymphadenopathy Respiratory exam: Present: normal lung sounds bilaterally. Absent: respiratory distress, wheezes, rales, rhonchi, stridor Cardiovascular Exam: Present: regular rate, normal rhythm, normal heart sounds. Absent: systolic murmur, diastolic murmur, rubs, gallop, clicks GI/Abdominal exam: Present: soft, normal bowel sounds. Absent: distended, tenderness, guarding, rebound, rigid Extremities exam: Present: normal inspection, full ROM, normal capillary refill, other (Left lower extremity edema.). Absent: tenderness, pedal edema, joint swelling, calf tenderness Back exam: Present: normal inspection Neurological exam: Present: alert, oriented X3, CN II-XII intact Psychiatric exam: Present: normal affect, normal mood Skin exam: Present: warm, dry, intact, normal color. Absent: rash Course Vital Signs 01/18/19 15:56 Temperature 97.8 F Pulse Rate 81 Respiratory 18 Rate Blood Pressure 198/82 O2 Sat by Pulse 99 Oximetry - Reevaluation(s) Reevaluation #1: 01/18/19 16:55 Medical records reviewed Reevaluation #2: y EKG Findings - EKG Comments: EKG Findings:: EKG shows A. fib rate of 81, QRS 90, QTc 457 Medical Decision Making - Medical Decision Making 79 female the ER for evaluation not exactly feeling well. Also complaining some dizziness, new onset atrial fibrillation elevated troponin non-STEMI. Patient will be admitted for anticoagulation cardiology evaluation - Lab Data Result diagrams: 01/18/19 16:46 01/18/19 16:46 Lab Results 01/18/19 01/18/19 01/18/19 Range/Units 16:46 16:46 16:46 WBC 6.9 (3.8-10.6) k/uL RBC 3.44 L (3.80-5.40) m/uL Hgb 9.6 L (11.4-16.0) gm/dL Hct 30.3 L (34.0-46.0) % MCV 88.0 (80.0-100.0) fL MCH 27.9 (25.0-35.0) pg MCHC 31.7 (31.0-37.0) g/dL RDW 14.8 (11.5-15.5) % Plt Count 398 (150-450) k/uL Neutrophils % 68 % Lymphocytes % 18 % Monocytes % 9 % Eosinophils % 1 % Basophils % 1 % Neutrophils # 4.7 (1.3-7.7) k/uL Lymphocytes # 1.2 (1.0-4.8) k/uL Monocytes # 0.6 (0-1.0) k/uL Eosinophils # 0.1 (0-0.7) k/uL Basophils # 0.1 (0-0.2) k/uL Sodium 138 (137-145) mmol/L Potassium 3.9 (3.5-5.1) mmol/L Chloride 103 (98-107) mmol/L Carbon Dioxide 24 (22-30) mmol/L Anion Gap 11 mmol/L BUN 14 (7-17) mg/dL Creatinine 0.66 (0.52-1.04) mg/dL Est GFR (CKD-EPI)AfAm >90 (>60 ml/min/1.73 sqM) Est GFR (CKD-EPI)NonAf 84 (>60 ml/min/1.73 sqM) Glucose 99 (74-99) mg/dL Plasma Lactic Acid Tucker 1.2 (0.7-2.0) mmol/L Calcium 9.7 (8.4-10.2) mg/dL Phosphorus 3.7 (2.5-4.5) mg/dL Magnesium 2.1 (1.6-2.3) mg/dL Total Bilirubin 0.5 (0.2-1.3) mg/dL AST 26 (14-36) U/L ALT 21 (9-52) U/L Alkaline Phosphatase 124 (38-126) U/L Creatine Kinase 68 (30-135) U/L Troponin I (0.000-0.034) ng/mL NT-Pro-B Natriuret Pep pg/mL Total Protein 6.9 (6.3-8.2) g/dL Albumin 4.0 (3.5-5.0) g/dL Urine Color Urine Appearance (Clear) Urine pH (5.0-8.0) Ur Specific [place] (1.001-1.035) Urine Protein (Negative) Urine Glucose (UA) (Negative) Urine Ketones (Negative) Urine Blood (Negative) Urine Nitrite (Negative) Urine Bilirubin (Negative) Urine Urobilinogen (<2.0) mg/dL Ur Leukocyte Esterase (Negative) Urine RBC (0-5) /hpf Urine WBC (0-5) /hpf Ur Squamous Epith Cells (0-4) /hpf Urine Bacteria (None) /hpf Urine Mucus (None) /hpf 01/18/19 01/18/19 01/18/19 Range/Units 16:46 16:46 16:46 WBC (3.8-10.6) k/uL RBC (3.80-5.40) m/uL Hgb (11.4-16.0) gm/dL Hct (34.0-46.0) % MCV (80.0-100.0) fL MCH (25.0-35.0) pg MCHC (31.0-37.0) g/dL RDW (11.5-15.5) % Plt Count (150-450) k/uL Neutrophils % % Lymphocytes % % Monocytes % % Eosinophils % % Basophils % % Neutrophils # (1.3-7.7) k/uL Lymphocytes # (1.0-4.8) k/uL Monocytes # (0-1.0) k/uL Eosinophils # (0-0.7) k/uL Basophils # (0-0.2) k/uL Sodium (137-145) mmol/L Potassium (3.5-5.1) mmol/L Chloride (98-107) mmol/L Carbon Dioxide (22-30) mmol/L Anion Gap mmol/L BUN (7-17) mg/dL Creatinine (0.52-1.04) mg/dL Est GFR (CKD-EPI)AfAm (>60 ml/min/1.73 sqM) Est GFR (CKD-EPI)NonAf (>60 ml/min/1.73 sqM) Glucose (74-99) mg/dL Plasma Lactic Acid Tucker (0.7-2.0) mmol/L Calcium (8.4-10.2) mg/dL Phosphorus (2.5-4.5) mg/dL Magnesium (1.6-2.3) mg/dL Total Bilirubin (0.2-1.3) mg/dL AST (14-36) U/L ALT (9-52) U/L Alkaline Phosphatase (38-126) U/L Creatine Kinase (30-135) U/L Troponin I 0.480 H* (0.000-0.034) ng/mL NT-Pro-B Natriuret Pep 1020 pg/mL Total Protein (6.3-8.2) g/dL Albumin (3.5-5.0) g/dL Urine Color Light Yellow Urine Appearance Cloudy H (Clear) Urine pH 7.0 (5.0-8.0) Ur Specific [place] 1.006 (1.001-1.035) Urine Protein Negative (Negative) Urine Glucose (UA) Negative (Negative) Urine Ketones Negative (Negative) Urine Blood Trace H (Negative) Urine Nitrite Negative (Negative) Urine Bilirubin Negative (Negative) Urine Urobilinogen <2.0 (<2.0) mg/dL Ur Leukocyte Esterase Large H (Negative) Urine RBC 1 (0-5) /hpf Urine WBC 18 H (0-5) /hpf Ur Squamous Epith Cells 9 H (0-4) /hpf Urine Bacteria Many H (None) /hpf Urine Mucus Rare H (None) /hpf - Radiology Data Radiology results: report reviewed (Chest x-rays negative for acute disease ultrasound left lower extremity negative for DVT), image reviewed Critical Care Time Critical Care Time: Yes Total Critical Care Time: 31 Disposition Clinical Impression: S/P total hip arthroplasty, NSTEMI (non-ST elevated myocardial infarction), Elevated troponin, UTI (urinary tract infection) Disposition: ADMITTED IP TO THIS HOSP Condition: Fair Is patient prescribed a controlled substance at d/c from ED?: No Referrals: Radha Khan MD [Primary Care Provider] - 1-2 days
[2019-01-18 17:02] LABS: Basophils # (A) 0.1 k/uL (0-0.2); Basophils % (A) 1 %; Eosinophils # (A) 0.1 k/uL (0-0.7); Eosinophils % (A) 1 %; HCT 30.3 % (34.0-46.0); HGB 9.6 gm/dL (11.4-16.0); Lymphocytes # (A) 1.2 k/uL (1.0-4.8); Lymphocytes % (A) 18 %; MCH 27.9 pg (25.0-35.0); MCHC 31.7 g/dL (31.0-37.0); Mean Platelet Volume 6.6; Monocytes # (A) 0.6 k/uL (0-1.0); Monocytes % (A) 9 %; Neutrophils # (A) 4.7 k/uL (1.3-7.7); Neutrophils % (A) 68 %; Platelet Count 398 k/uL (150-450); RBC 3.44 m/uL (3.80-5.40); RDW 14.8 % (11.5-15.5); WBC 6.9 k/uL (3.8-10.6)
[2019-01-18 17:12] LABS: ALT 21 U/L (9-52); AST 26 U/L (14-36); African American GFR (CKD) >90 (>60 ml/min/1.73 sqM); Alkaline Phosphatase 124 U/L (38-126); Anion Gap 11 mmol/L; Blood Urea Nitrogen 14 mg/dL (7-17); Calcium 9.7 mg/dL (8.4-10.2); Carbon Dioxide 24 mmol/L (22-30); Chloride 103 mmol/L (98-107); Creatine Kinase 68 U/L (30-135); Glucose 99 mg/dL (74-99); Magnesium 2.1 mg/dL (1.6-2.3); Phosphorus 3.7 mg/dL (2.5-4.5); Potassium 3.9 mmol/L (3.5-5.1); Sodium 138 mmol/L (137-145); Total Bilirubin 0.5 mg/dL (0.2-1.3); Total Protein 6.9 g/dL (6.3-8.2)
[2019-01-18 17:13] LABS: INR 0.9 (<1.2); Partial Thromboplastin Time 26.1 sec (22.0-30.0); Prothrombin Time 10.1 sec (9.0-12.0)
[2019-01-18 17:15] LABS: Appearance,Urine Cloudy (Clear); Bacteria,Urine Many /hpf; Bilirubin,Urine Negative (Negative); Blood,Urine Trace (Negative); Color,Urine Light Yellow; Glucose,Urine (UA) Negative (Negative); Ketones,Urine Negative (Negative); Leukocyte Esterase,Urine Large (Negative); Mucus,Urine Rare /hpf; Nitrite,Urine Negative (Negative); Protein,Urine Negative (Negative); RBC,Urine 1 /hpf (0-5); Specific Gravity,Urine 1.006 (1.001-1.035); Squamous Epithelial Cell,Urine 9 /hpf (0-4); Urobilinogen,Urine <2.0 mg/dL (<2.0)
--- NOTE | 2019-01-18 18:19 | US ---
EXAMINATION TYPE: US venous doppler duplex LE LT DATE OF EXAM: 01/18/2019 6:10 PM COMPARISON: NONE CLINICAL HISTORY: edema. Swelling left leg SIDE PERFORMED: Left TECHNIQUE: The lower extremity deep venous system is examined utilizing real time linear array sonog fabienne with graded compression, doppler sonography and color-flow sonography. VESSELS IMAGED: External Iliac Vein (EIV) Common Femoral Vein Deep Femoral Vein Greater Saphenous Vein * Femoral Vein Popliteal Vein Small Saphenous Vein * Proximal Calf Veins (* superficial vessels) Left Leg: Negative for DVT IMPRESSION: No evidence of deep venous thrombosis in the left leg.
--- NOTE | 2019-01-18 18:48 | XR ---
EXAMINATION TYPE: XR chest 2V DATE OF EXAM: 01/18/2019 COMPARISON: 05/09/2010 HISTORY: Dizziness TECHNIQUE: Frontal and lateral views of the chest are obtained. FINDINGS: There is no heart failure nor confluent pneumonic infiltrate. There are chest leads. Costo phrenic angles are clear. Bony thorax is intact. IMPRESSION: No active cardiopulmonary disease. No change.
[2019-01-18] MEDS ORDERED: ASPIRIN 81 MG PO STA (19:06)
[2019-01-18] MEDS ORDERED: HEPARIN SODIUM,PORCINE 5,000 UNIT/ML 1 ML VIAL IV PRN (19:06)
[2019-01-18] MEDS ORDERED: HEPARIN SODIUM,PORCINE 5,000 UNIT/ML 1 ML VIAL IV ONE (19:06)
[2019-01-18] MEDS ORDERED: NITROGLYCERIN SL TABS 0.4 MG TAB SUBLINGUAL PRN (19:06)
[2019-01-18] MEDS ORDERED: HEPARIN SOD,PORK IN 0.45% NACL 25,000 UNIT in 0.45% NACL 1 250ML.BAG IV SCH (19:15)
--- NOTE | 2019-01-18 19:41 | CT ---
EXAMINATION TYPE: CT angio chest DATE OF EXAM: 01/18/2019 7:30 PM COMPARISON: None HISTORY: Dizziness and nausea. CT DLP: 280.6 mGycm Automated exposure control for dose reduction was used. CONTRAST: CTA scan of the thorax is performed with IV Contrast, patient injected with 67ml mL of Isovue 370, pu lmonary embolism protocol. . FINDINGS: There is some patchy atelectasis at the lung bases. Heart is enlarged. There are no hilar masses. The re is no mediastinal adenopathy. Thoracic aorta is atheromatous. There is aneurysm of ascending aorta measures 4.2 cm. I see no filling defects in the pulmonary arteries. There are large central pulmonary arteries. There is hiatal hernia. There are spondylotic changes in the thoracic spine. I see no bony destructive pro cess. IMPRESSION: NO EVIDENCE OF PULMONARY EMBOLISM. PULMONARY INTERSTITIAL FIBROTIC CHANGES AT THE LUNG BASES. 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 NO SUSPICIOUS PULMONARY MASS. MILD ANEURYSM OF THE ASCENDING AORTA.
[2019-01-18 22:03] VITALS: BMI 26.2
[2019-01-18] MEDS: METOPROLOL TARTRATE 25 MG TAB PO SCH (22:18)
[2019-01-18] MEDS: SODIUM CHLORIDE 0.9% 1,000 ML IV SCH (22:20)
[2019-01-19 03:33] LABS: Mean Platelet Volume 6.6; Platelet Count 396 k/uL (150-450)
[2019-01-19 04:01] LABS: Cholesterol 115 mg/dL (<200); HDL Cholesterol 50 mg/dL (40-60); LDL Cholesterol,Calculated 52 mg/dL (0-99); Triglycerides 66 mg/dL (<150)
[2019-01-19] MEDS: SODIUM CHLORIDE 0.9% 1,000 ML IV SCH ×2 (06:38→17:28)
[2019-01-19] MEDS: METOPROLOL TARTRATE 25 MG TAB PO SCH ×2 (08:57→20:22)
[2019-01-19] MEDS ORDERED: ASPIRIN 325 MG TAB PO SCH (09:00)
--- NOTE | 2019-01-19 11:44 | CONS ---
CONSULTATION Mrs. James is an 79-year-old female who is seen for the cardiac evaluations. Patient's medical records as well as the old medical record and labs tests reviewed. She is an 79-year-old female who came to the emergency room because she was not feeling well. According to her, she was having intermittent dizzy spells. She did not pass out. She had some left leg swelling. She had recent left hip replacement. Did not have any shortness of breath, chest pain, cough. During the previous admission after the hip surgery, patient had paroxysmal atrial fibrillation which spontaneously converted to the normal sinus rhythm. The patient was discharged home on flecainide and Eliquis, but according to her, she was not taking Eliquis at home. The patient also gives a history that she possibly has a urinary tract infection. This patient has a past history of TIA, paroxysmal atrial fibrillation, hypertension, hyperlipidemia. Denies any prior history of myocardial infarction. Echocardiogram that is done during the previous admission revealed normal left ventricular systolic function. PAST MEDICAL HISTORY: The patient's past medical history includes hypertension, hyperlipidemia, left hip replacement, tonsillectomy, right great toe surgery, bilateral cataract, left eye laser surgery. HOME MEDICATIONS: Patient's home medications include Zocor 20 mg daily, Lopressor 25 mg b.i.d., Cozaar 100 mg daily, Synthroid, Tambocor 50 mg b.i.d., Eliquis 5 mg b.i.d. and Tylenol. PHYSICAL EXAMINATION: Physical examination at present reveals an 79-year-old female who does not appear to be in any acute distress. Patient's heart rate is 68 per minute, blood pressure is 154/85 mmHg. Head/ENT examination is negative. Neck is supple. There is no increase in jugular venous pressure. Both the carotid pulses are felt. There is no bruit. Chest is symmetrical. HEART: The PMI is not felt. First and second heart sounds are normal. There is no evidence of any murmur. Lungs are clinically clear to auscultation and percussion. Abdomen is soft. Liver and spleen are not enlarged. EXTREMITIES: Peripheral pulsations are 2+. The patient's electrolytes are normal. Initial troponin was 0.48. The second troponin is 0.472 and the third troponin is 0.38. EKG shows normal sinus rhythm with PACs and aberrant conduction. There is no evidence of any ST-segment changes to suggest ischemia. CT scan was negative for any evidence of pulmonary embolism and venous duplex study was negative. FINAL IMPRESSION: 1. This patient is admitted with vague symptoms of dizziness and not feeling well. The patient did not complain of any chest discomfort suggestive of ischemia. EKG does not show any evidence of ischemia. The 3 troponins are almost flat without any significant rise and fall and this is not suggestive of acute coronary syndrome. We will do an echo and Doppler study to rule out any significant wall motion abnormality. 2. History of paroxysmal atrial fibrillation. 3. History of recent hip surgery. There is no evidence of pulmonary embolism. The patient was again educated regarding taking Eliquis regularly. We will start Eliquis and discontinue the heparin and patient will be ambulated. If patient remains stable she can be discharged home. MONIQUE / VINI: [id number] /
[2019-01-19] MEDS: LOSARTAN 50 MG TAB PO SCH (11:50)
[2019-01-19] MEDS: APIXABAN 5 MG TAB PO SCH ×2 (11:50→20:23)
[2019-01-19] MEDS ORDERED: traMADol 50 MG TAB PO PRN (14:21)
--- NOTE | 2019-01-19 14:29 | P.HPIM ---
History of Present Illness H&P Date: 01/19/19 Chief Complaint: Dizziness, lightheadedness, shortness of breath This is an 79-year-old female one of Dr. Khan with a previous medical history significant for hypertension and hypertensive cardiovascular disease, hyperlipidemia, osteoarthritis, hypothyroidism, recurrent UTI, history of TIA/CVA she had a recent hospitalization at the end of December for left total hip arthroplasty anterior approach. During her hospitalization, patient developed paroxysmal atrial fibrillation and was started on Lopressor flecainide and eliquis. The patient was discharged to [facility]. Apparently patient was admitted there under the care of Dr. Ward. She states she will went home last week. On Wednesday of this week, patient developed some shortness of breath with increased edema, lightheadedness, dizziness and heart racing. She complains of increased edema to the left leg since the fracture. She has also had increased pain to the left lower extremity, incontinence of urine. Note the patient was not discharged from the correction on eliquis and this is being researched by bus transportation manager. Patient is using a walker for ambulation. The patient came into [facility] emergency center for evaluation. EKG was atrial fibrillation at a rate of 81. Hemoglobin 9.6, white count 6.9 within normal limits. Albumin 4.0. Troponin 0.480, proBNP 1020. Urinalysis cloudy leukoesterase large, WBC 18, bacteria many, epithelial cells 9. Chest x-ray shows no acute cardiopulmonary disease. Ultrasound left lower extremity negative for DVT. EKG is a sinus rhythm without acute ST-T wave changes. Patient was started on ceftriaxone. Cardiology consult requested. Repeat troponin 0.472, 0.38. CT angios of the chest showed no evidence of p ulmonary embolism. Pulmonary interstitial fibrotic changes at the lung bases. Large pulmonary arteries consistent with pulmonary hypertension. No suspicious pulmonary mass. Mild aneurysm of the ascending aorta. Review of Systems Constitutional: Reports fatigue, Reports malaise, Reports poor appetite, Reports weakness, Denies chills, Denies fever Eyes: denies blurred vision, denies pain Ears, nose, mouth and throat: Reports vertigo, Denies headache, Denies nasal congestion, Denies nasal discharge, Denies sore throat Cardiovascular: Reports lightheadedness, Reports palpitations, Denies chest pain, Denies shortness of breath, Denies syncope Respiratory: Reports dyspnea, Denies cough, Denies cough with sputum, Denies excessive sputum, Denies hemoptysis, Denies home oxygen, Denies wheezing Gastrointestinal: Reports loss of appetite, Denies abdominal pain, Denies diarrhea, Denies nausea, Denies vomiting Genitourinary: Denies dysuria, Denies hematuria Musculoskeletal: Reports muscle weakness, Denies frequent falls, Denies myalgias Integumentary: Denies pruritus, Denies rash, Denies wounds Neurological: Reports vertigo, Denies change in mentation, Denies confusion, Denies numbness, Denies seizures, Denies weakness Psychiatric: Denies anxiety, Denies depression Endocrine: Denies fatigue, Denies weight change Past Medical History Past Medical History: Atrial Fibrillation, CVA/TIA, Hyperlipidemia, Hypertension, Osteoarthritis (OA), Thyroid Disorder Additional Past Medical History / Comment(s): chronic UTI's, TIA 2002-no effects, on rx for UTI, History of Any Multi-Drug Resistant Organisms: None Reported Past Surgical History: Joint Replacement, Orthopedic Surgery, Tonsillectomy, Tubal Ligation Additional Past Surgical History / Comment(s): rt great toe surgery, mass removed from left great toe, elliot cataracts, left eye laser surgery, left hip replacement Past Anesthesia/Blood Transfusion Reactions: No Reported Reaction Past Psychological History: Anxiety Smoking Status: Never smoker Past Alcohol Use History: None Reported Past Drug Use History: None Reported - Past Family History Mother Family Medical History: Coronary Artery Disease (CAD) Additional Family Medical History / Comment(s): Mother at age 82 from coronary artery disease and also had osteoarthritis. Father Family Medical History: Myocardial Infarction (MO) Additional Family Medical History / Comment(s): Father at age 82 from a myocardial infarction. Sister(s) Family Medical History: No Reported History Additional Family Medical History / Comment(s): Patient has 1 sister with no major medical problems. Son(s) Family Medical History: No Reported History Additional Family Medical History / Comment(s): The patient has 2 sons with no major medical problems. Daughter(s) Family Medical History: No Reported History Additional Family Medical History / Comment(s): Patient has one daughter with no major medical problems. Medications and Allergies Home Medications Medication Instructions Recorded Confirmed Type Levothyroxine Sodium [Synthroid] 50 mcg PO DAILY 12/21/18 01/18/19 History Losartan Potassium [Cozaar] 100 mg PO DAILY 12/21/18 01/18/19 History Simvastatin [Zocor] 20 mg PO HS 12/21/18 01/18/19 History Acetaminophen Tab [Tylenol Tab] 650 mg PO Q6H PRN #30 tablet 12/30/18 01/18/19 Rx Apixaban [Eliquis] 5 mg PO BID #30 tab 12/30/18 01/18/19 Rx Flecainide [Tambocor] 50 mg PO Q12HR #60 tab 12/30/18 01/18/19 Rx Metoprolol Tartrate [Lopressor] 25 mg PO BID #60 tab 12/30/18 01/18/19 Rx traMADol HCl [Ultram] 25 - 50 mg PO Q6H PRN 01/18/19 01/18/19 History Allergies Allergy/AdvReac Type Severity Reaction Status Date / Time Sulfa (Sulfonamide Allergy Rash/Hives Verified 01/18/19 16:22 Antibiotics) Physical Exam Vitals: Vital Signs Temp Pulse Pulse Resp BP BP Pulse Ox 01/19/19 12:00 97.6 F 59 L 16 135/74 93 L 01/19/19 10:00 69 13 115/68 97 01/19/19 08:00 98.2 F 68 12 154/85 96 01/19/19 06:00 64 20 155/78 97 01/19/19 04:00 98.1 F 58 L 14 129/70 95 01/19/19 02:00 56 L 12 131/68 97 01/19/19 00:22 62 13 98 01/19/19 00:20 62 12 131/68 98 01/19/19 00:16 57 L 01/18/19 21:30 71 18 147/75 95 01/18/19 21:00 85 20 171/99 94 L 01/18/19 20:53 98.2 F 01/18/19 15:56 97.8 F 81 18 198/82 99 Intake and Output 01/18/19 01/19/19 01/19/19 22:59 06:59 14:59 Intake Total 500 62.044 Balance 500 62.044 Intake: Amount of Fluid Infused ( 500 ml) Intake, IV Titration 62.044 Amount Heparin Sod,Pork in 0.45% 62.044 NaCl 25,000 unit In 0.45 % NaCl 1 250ml.bag @ 12 UNITS/KG/HR 8.328 mls/hr IV .Q24H [facility] Rx#: [id number] Other: Voiding Method Bedside Commode Bedside Commode Diaper Diaper # Voids 0 2 1 # Bowel Movements 1 Weight 69.4 kg 66.6 kg - Constitutional General appearance: average body habitus, no acute distress - EENT Eyes: anicteric sclerae, EOMI, PERRLA, no ptosis, conjunctiva pale ENT: hearing grossly normal, NA/AT, normal oropharynx, no thrush Ears: bilateral: normal - Neck Neck: no lymphadenopathy, normal ROM, no rigidity, no stridor, no thyromegaly Carotids: bilateral: upstroke normal Thyroid: bilateral: normal size - Respiratory Respiratory: bilateral: diminished, negative: dullness, rales, rhonchi, whe ezing, prolonged expiration, prolonged inspiration - Cardiovascular Rhythm: regular Heart sounds: normal: S1, S2 Abnormal Heart Sounds: no systolic murmur, no rub, no S3 Gallop, no click merchandise coordinator sinus rhythm - Gastrointestinal General gastrointestinal: Normal bowel sounds, soft, no splenomegaly, no tenderness, no umbilical hernia, no ventral hernia - Integumentary Integumentary: normal, normal turgor - Neurologic Neurologic: CNII-XII intact - Musculoskeletal Musculoskeletal: strength equal bilaterally. Mild lower extremity edema on the left. Healing wound to the left anterior hip. - Psychiatric Psychiatric: A&O x's 3, appropriate affect, intact judgment & insight Results CBC & Chem 7: 01/19/19 03:02 01/18/19 16:46 Labs: Abnormal Lab Results - Last 24 Hours (Table) 01/18/19 01/18/19 01/18/19 Range/Units 16:46 16:46 16:46 RBC 3.44 L (3.80-5.40) m/uL Hgb 9.6 L (11.4-16.0) gm/dL Hct 30.3 L (34.0-46.0) % APTT (22.0-30.0) sec Troponin I 0.480 H* (0.000-0.034) ng/mL Urine Appearance Cloudy H (Clear) Urine Blood Trace H (Negative) Ur Leukocyte Esterase Large H (Negative) Urine WBC 18 H (0-5) /hpf Ur Squamous Epith Cells 9 H (0-4) /hpf Urine Bacteria Many H (None) /hpf Urine Mucus Rare H (None) /hpf 01/18/19 01/19/19 01/19/19 Range/Units 22:09 03:02 04:56 RBC (3.80-5.40) m/uL Hgb (11.4-16.0) gm/dL Hct (34.0-46.0) % APTT 64.1 H (22.0-30.0) sec Troponin I 0.472 H* 0.380 H* (0.000-0.034) ng/mL Urine Appearance (Clear) Urine Blood (Negative) Ur Leukocyte Esterase (Negative) Urine WBC (0-5) /hpf Ur Squamous Epith Cells (0-4) /hpf Urine Bacteria (None) /hpf Urine Mucus (None) /hpf Microbiology - Last 24 Hours (Table) 01/18/19 16:46 Urine Culture - Preliminary Urine,Voided Thrombosis Risk Factor Assmnt - DVT/VTE Prophylaxis DVT/VTE Prophylaxis: Pharmacologic Prophylaxis ordered - Choose All That Apply Any of the Below Risk Factors Present?: Yes Each Factor Represents 1 point: Medical pt on bed rest, Obesity (BMI >25) Other Risk Factors: Yes Each Risk Factor Represents 3 Points: Age 75 years or older Thrombosis Risk Factor Assessment Total Risk Factor Score: 5 Thrombosis Risk Factor Assessment Level: High Risk Assessment and Plan Plan: 1. Lightheadedness, dizziness, shortness of breath and fatigue possibly s econdary to UTI. Urine culture in progress. Patient is on ceftriaxone. 2. Elevated troponins, acute coronary syndrome ruled out. Cardiology consult appreciated. Limited echocardiogram has been ordered. 3. Paroxysmal atrial fibrillation. Cardiology consult appreciated. Patient has been resumed on eliquis 5 g twice daily, flecainide 50 mg every 12 hours, Lopressor 25 mg twice daily. 4. Recent left total hip arthroplasty anterior approach, stable. PT and OT will be added. 5. Hypertension and hypertensive cardiovascular disease. Continue losartan which has been decreased from 100 mg to 50 mg orally once every day metoprolol 25 mg orally twice a day. 6. Hyperlipidemia. Continue patient on Lipitor 10 mg orally once every day. 7. Hypothyroidism. Continue Synthroid 50 g orally once every day. Check TSH and free T4. 8. Osteoarthritis, generalized. 9. History of CVA/TIA. Stable at this time. Continue with statin for secondary stroke prevention. 10. DVT prophylaxis. Eliquis. 11. Chronic anemia of chronic disease. 12. GI prophylaxis. Pepcid Patient will be admitted to the hospital for a minimum of 2 night stay. Discharge plan: To be determined. PT and OT added. Patient was recently discharged from [facility]. Impression and plan of care have been directed as dictated by the signing physician. Cynthia Rahman nurse practitioner acting as scribe for signing physician.
[2019-01-19] MEDS: FLECAINIDE 50 MG TAB PO SCH (20:23)
[2019-01-19] MEDS ORDERED: ATORVASTATIN 10 MG TAB PO SCH (21:00)
[2019-01-20] MEDS: SODIUM CHLORIDE 0.9% 1,000 ML IV SCH (05:24)
[2019-01-20] MEDS ORDERED: LEVOTHYROXINE 50 MCG TAB PO SCH (06:30)
[2019-01-20] MEDS ORDERED: FAMOTIDINE 20 MG TAB PO SCH (09:00)
[2019-01-20] MEDS: APIXABAN 5 MG TAB PO SCH (09:14)
[2019-01-20] MEDS: FLECAINIDE 50 MG TAB PO SCH (09:14)
[2019-01-20] MEDS: METOPROLOL TARTRATE 25 MG TAB PO SCH (09:14)
[2019-01-20] MEDS: LOSARTAN 50 MG TAB PO SCH (09:14)
--- NOTE | 2019-01-20 11:34 | ECHOF ---
Referral Reason:nstemi MEASUREMENTS -------- HEIGHT: 160.0 cm WEIGHT: 68.0 kg BP: FINDINGS -------- Limited study for LV function; Echo 12/26. Overall left ventricular systolic function is normal with, an EF between 55 - 60 %. There is no pericardial effusion. CONCLUSIONS -------- 1. Overall left ventricular systolic function is normal with, an EF between 55 - 60 %. 2. There is no pericardial effusion. MINE ANALYST: Lorraine Nieves RDCS
[2019-01-20 12:26] VITALS: TEMP 97.3
[2019-01-20] MEDS ORDERED: amLODIPine 5 MG TAB PO STA (12:41)
--- NOTE | 2019-01-20 13:52 | P.DS ---
Providers Date of admission: 01/18/19 19:06 Expected date of discharge: 01/20/19 Attending physician: Ab Patiño Consults: 01/18/19 19:06 Consult Physician Urgent Consulting Provider: Carlo Crawford Consult Reason/Comments: nstemi Do you want consulting provider notified?: Yes Primary care physician: Radha Khan MD Hospital Course: This is an 79-year-old female one of Dr. Khan with a previous medical history significant for hypertension and hypertensive cardiovascular disease, hyperlipidemia, osteoarthritis, hypothyroidism, recurrent UTI, history of TIA/CVA she had a recent hospitalization at the end of December for left total hip arthroplasty anterior approach. During her hospitalization, patient developed paroxysmal atrial fibrillation and was started on Lopressor flecainide and eliquis. The patient was discharged to [facility]. Apparently patient was admitted there under the care of Dr. Ward. She states she will went home last week. On Wednesday of this week, patient developed some shortness of breath with increased edema, lightheadedness, dizziness and heart racing. She complains of increased edema to the left leg since the fracture. She has also had increased pain to the left lower extremity, incontinence of urine. Note the patient was not discharged from the [facility] on eliquis and this is being researched by test case developer. Patient is using a walker for ambulation. The patient came into [facility] emergency center for evaluation. EKG was atrial fibrillation at a rate of 81. Hemoglobin 9.6, white count 6.9 within normal limits. Albumin 4.0. Troponin 0.480, proBNP 1020. Urinalysis cloudy leukoesterase large, WBC 18, bacteria many, epithelial cells 9. Chest x-ray shows no acute cardiopulmonary disease. Ultrasound left lower extremity negative for DVT. EKG is a sinus rhythm without acute ST-T wave changes. Patient was started on ceftriaxone. Cardiology consult requested. Repeat troponin 0.472, 0.38. CT angios of the chest showed no evidence of pulmonary embolism. Pulmonary interstitial fibrotic changes at the lung bases. Large pulmonary arteries consistent with pulmonary hypertension. No suspicious pulmonary mass. Mild aneurysm of the ascending aorta. 01/20: Patient is seen on the cardiac stepdown unit. She denies any new complaints. No chest pain, shortness of breath, palpitations, lightheadedness or dizziness. She has been afebrile, heart rate 56, blood pressure 138/82, pulse ox 98% on room air. Triglycerides 66, cholesterol 115, LDL 52, HDL 50, TSH 4.670. Urine culture is positive for gram-negative bacilli. Limited echocardiogram reveals EF 55-60%. No pericardial effusion. Discussed case with Dr. Robbins had no further cardiac workup is necessary. Patient may follow-up with Dr. Crawford. Patient will be discharged home today in stable condition. Discharge diagnoses: 1. Lightheadedness, dizziness, shortness of breath and fatigue possibly secondary to UTI. 2. Elevated troponins, acute coronary syndrome ruled out. 3. Paroxysmal atrial fibrillation. 4. Recent left total hip arthroplasty anterior approach, stable. 5. Hypertension and hypertensive cardiovascular disease. 6. Hyperlipidemia. 7. Hypothyroidism. 8. Osteoarthritis, generalized. 9. History of CVA/TIA. Stable 10. Chronic anemia of chronic disease. Discharge plan: Home. Patient was recently discharged from [facility]. Impression and plan of care have been directed as dictated by the signing physician. Cynthia Rahman nurse practitioner acting as scribe for signing physician. Patient Condition at Discharge: Good Plan - Discharge Summary Discharge Rx Participant: No New Discharge Prescriptions: New Cefuroxime [Ceftin] 250 mg PO BID #14 tablet Famotidine [Pepcid] 20 mg PO DAILY tab Continue Levothyroxine Sodium [Synthroid] 50 mcg PO DAILY Simvastatin [Zocor] 20 mg PO HS Apixaban [Eliquis] 5 mg PO BID #30 tab Acetaminophen Tab [Tylenol] 650 mg PO Q6H PRN #30 tablet PRN Reason: Pain Metoprolol Tartrate [Lopressor] 25 mg PO BID #60 tab Flecainide [Tambocor] 50 mg PO Q12HR #60 tab traMADol HCl [Ultram] 25 - 50 mg PO Q6H PRN PRN Reason: Pain Changed Losartan Potassium [Cozaar] 50 mg PO DAILY #0 Discharge Medication List Levothyroxine Sodium [Synthroid] 50 mcg PO DAILY 12/21/18 [History] Simvastatin [Zocor] 20 mg PO HS 12/21/18 [History] Acetaminophen Tab [Tylenol] 650 mg PO Q6H PRN #30 tablet 12/30/18 [Rx] Apixaban [Eliquis] 5 mg PO BID #30 tab 12/30/18 [Rx] Flecainide [Tambocor] 50 mg PO Q12HR #60 tab 12/30/18 [Rx] Metoprolol Tartrate [Lopressor] 25 mg PO BID #60 tab 12/30/18 [Rx] traMADol HCl [Ultram] 25 - 50 mg PO Q6H PRN 01/18/19 [History] Cefuroxime [Ceftin] 250 mg PO BID #14 tablet 01/20/19 [Rx] Famotidine [Pepcid] 20 mg PO DAILY tab 01/20/19 [Rx] Losartan Potassium [Cozaar] 50 mg PO DAILY #0 01/20/19 [Rx] Follow up Appointment(s)/Referral(s): Radha Khan MD [Primary Care Provider] - 3 Days (Office will call with follow up appointment.) Carlo Crawford MD [STAFF PHYSICIAN] - 01/26/19 3:30 pm Patient Instructions/Handouts: A-fib (Atrial Fibrillation) (DC), Chest Pain (DC), Safe Use of Anticoagulants (DC) Discharge Disposition: HOME WITH HOME HEALTH SERVICES
[2019-01-20] MEDS ORDERED: amLODIPine 5 MG TAB PO SCH (15:30)
[2019-01-20 16:24] VITALS: BP 182/80; PULSE 61; RESP 18
--- NOTE | 2019-01-20 20:15 | PN ---
PROGRESS NOTE This patient's electronic medical record is reviewed. The patient was admitted with symptoms of dizziness and palpitations. Patient has remained in normal sinus rhythm. This afternoon patient was supposed to go home and she felt dizzy. The blood pressure was checked and the patient had significantly elevated systolic blood pressure. The patient received amlodipine 5 mg and the blood pressure is now down to 180. The patient says she is feeling better. First and second heart sounds are normal. Lungs are clear to auscultation and percussion. We have added amlodipine 5 mg daily. Patient is advised to take extra p.r.n. amlodipine if she has elevated blood pressure associated with dizziness. This was thoroughly discussed with the patient and she understands well. MMODL / IJN: [id number] /
== END 2019-01-20 16:15 | disposition home or self-care (01) | DRG 690 ==
LOC: EC 15:54 → 3SCARD 19:06 → 2SICU 20:56 → 3SCARD 01-19 18:48
PROVIDERS: ADMIT Internal Medicine Geriatric Medicine; ATTEND Internal Medicine Geriatric Medicine
DX: N39.0 Urinary tract infection, site not specified (principal); M19.90 Unspecified osteoarthritis, unspecified site; I71.2 Thoracic aortic aneurysm, without rupture; F41.9 Anxiety disorder, unspecified; E78.5 Hyperlipidemia, unspecified; E03.9 Hypothyroidism, unspecified; D63.8 Anemia in other chronic diseases classified elsewhere; I48.0 Paroxysmal atrial fibrillation; I11.9 Hypertensive heart disease without heart failure; R42 Dizziness and giddiness; I27.20 Pulmonary hypertension, unspecified; Z96.642 Presence of left artificial hip joint; Z79.01 Long term (current) use of anticoagulants; Z79.890 Hormone replacement therapy; Z79.899 Other long term (current) drug therapy; Z82.49 Family history of ischemic heart disease and other diseases of the circulatory system; Z86.73 Personal history of transient ischemic attack (TIA), and cerebral infarction without residual deficits; Z87.440 Personal history of urinary (tract) infections; Z88.2 Allergy status to sulfonamides; Z90.89 Acquired absence of other organs; Z98.51 Tubal ligation status; Z98.42 Cataract extraction status, left eye; Z98.41 Cataract extraction status, right eye
CPT/HCPCS: 36415; 71046; 71275; 80053; 80061; 81001; 82550; 83605; 83735; 83880; 84100; 84443; 84484; 85025; 85049; 85610; 85730; 87077; 87086; 87186; 93005; 93308; 96361; 96365; 96367; 96375; 96376; 99291

== ENCOUNTER 2019-02-25 11:55 | Inpatient (IN) | payer MEDICARE ==
--- NOTE | 2019-02-25 12:31 | ED ---
Chest Pain HPI - General Source: patient Mode of arrival: wheelchair Limitations: no limitations <Baldemar Morales - Last Filed: 02/25/19 14:24> <Arnulfo Lal - Last Filed: 02/25/19 14:27> - General Chief Complaint: Chest Pain Stated Complaint: chest pain Time Seen by Provider: 02/25/19 12:07 - History of Present Illness Initial Comments: Patient is an 79-year-old female with history of A. fib and CVAs presenting to emergency Department with a chief complaint of chest pressure. Patient reports she developed this about 3 days ago and has been coming on and off intermittently. Patient reports today she woke up in the morning and developed chest pressure without any radiation. However, she does report pain in the left upper arm. Patient denies any episodes of diaphoresis nausea or vomiting. Patient denies shortness of breath or dyspnea on exertion. Patient denies any dizziness, lightheadedness. Patient denies any abdominal or back pain. Patient sees Dr. Crawford and is currently on antihypertensive medication. Patient is not on blood thinners. Patient reports taking aspirin 325 before ED arrival. (Baldemar Morales) - Related Data Home Medications Medication Instructions Recorded Confirmed Levothyroxine Sodium [Synthroid] 50 mcg PO DAILY 12/21/18 01/18/19 Simvastatin [Zocor] 20 mg PO HS 12/21/18 01/18/19 traMADol HCl [Ultram] 25 - 50 mg PO Q6H PRN 01/18/19 01/18/19 Previous Rx's Medication Instructions Recorded Acetaminophen Tab [Tylenol] 650 mg PO Q6H PRN #30 tablet 12/30/18 Apixaban [Eliquis] 5 mg PO BID #30 tab 12/30/18 Metoprolol Tartrate [Lopressor] 25 mg PO BID #60 tab 12/30/18 Apixaban [Eliquis] 5 mg PO BID #60 tab 01/20/19 Cefuroxime [Ceftin] 250 mg PO BID #14 tablet 01/20/19 Famotidine [Pepcid] 20 mg PO DAILY tab 01/20/19 Flecainide [Tambocor] 50 mg PO Q12HR #60 tab 01/20/19 Losartan Potassium [Cozaar] 50 mg PO DAILY #0 01/20/19 amLODIPine [Norvasc] 5 mg PO DAILY #30 tab 01/20/19 Allergies Allergy/AdvReac Type Severity Reaction Status Date / Time Sulfa (Sulfonamide Allergy Rash/Hives Verified 02/25/19 12:05 Antibiotics) Review of Systems ROS Other: All systems not noted in ROS Statement are negative. <Baldemar Morales - Last Filed: 02/25/19 14:24> ROS Other: All systems not noted in ROS Statement are negative. <Arnulfo Lal - Last Filed: 02/25/19 14:27> ROS Statement: Those systems with pertinent positive or pertinent negative responses have been documented in the HPI. EKG Findings - EKG Results: EKG: interpreted by ERMD (Sinus rhythm with history of AV block rate was 66. Interval 300 QRS duration 96 QT since QTC 468/490 left is deviation and septal infarct of undetermined age new biphasic T waves seen in leads V4 V5 and V6 not seen on previous EKGs dated 01/18/19 and 01/1219.) <Arnulfo Lal - Last Filed: 02/25/19 14:27> Past Medical History Past Medical History: Atrial Fibrillation, CVA/TIA, Hyperlipidemia, Hypertension, Osteoarthritis (OA), Thyroid Disorder Additional Past Medical History / Comment(s): chronic UTI's, TIA 2002-no effects, on rx for UTI, History of Any Multi-Drug Resistant Organisms: None Reported Past Surgical History: Joint Replacement, Orthopedic Surgery, Tonsillectomy, Tubal Ligation Additional Past Surgical History / Comment(s): rt great toe surgery, mass removed from left great toe, elliot cataracts, left eye laser surgery, left hip replacement Past Anesthesia/Blood Transfusion Reactions: No Reported Reaction Past Psychological History: Anxiety Smoking Status: Never smoker Past Alcohol Use History: None Reported Past Drug Use History: None Reported - Past Family History Mother Family Medical History: Coronary Artery Disease (CAD) Additional Family Medical History / Comment(s): Mother at age 82 from coronary artery disease and also had osteoarthritis. Father Family Medical History: Myocardial Infarction ([place]) Additional Family Medical History / Comment(s): Father at age 82 from a myocardial infarction. Sister(s) Family Medical History: No Reported History Additional Family Medical History / Comment(s): Patient has 1 sister with no major medical problems. Son(s) Family Medical History: No Reported History Additional Family Medical History / Comment(s): The patient has 2 sons with no major medical problems. Daughter(s) Family Medical History: No Reported History Additional Family Medical History / Comment(s): Patient has one daughter with no major medical problems. <Baldemar Morales - Last Filed: 02/25/19 14:24> General Exam Limitations: no limitations General appearance: alert, in no apparent distress Head exam: Present: atraumatic, normocephalic, normal inspection Eye exam: Present: normal appearance, PERRL, EOMI Pupils: Present: normal accommodation ENT exam: Present: normal exam, normal oropharynx, mucous membranes moist, TM's normal bilaterally, normal external ear exam Neck exam: Present: normal inspection, full ROM Respiratory exam: Present: normal lung sounds bilaterally Cardiovascular Exam: Present: regular rate, normal rhythm, normal heart sounds GI/Abdominal exam: Present: soft. Absent: tenderness Extremities exam: Present: normal inspection, full ROM Back exam: Present: normal inspection, full ROM Neurological exam: Present: alert, oriented X3 Psychiatric exam: Present: normal affect, normal mood Skin exam: Present: warm, intact, normal color <Baldemar Morales - Last Filed: 02/25/19 14:24> Course <Arnulfo Lal - Last Filed: 02/25/19 14:27> Vital Signs 02/25/19 02/25/19 02/25/19 12:04 12:16 13:05 Temperature 98.1 F Pulse Rate 82 67 Respiratory 16 16 16 Rate Blood Pressure 129/80 147/86 O2 Sat by Pulse 96 98 Oximetry - Reevaluation(s) Reevaluation #1: 02/25/19 14:26 PA supervision: Present face [id number] evaluation patient did discuss findings with her she started having chest pain approximately 3 days ago intermittently has had none since she took aspirin this morning.. I did discuss the case with Dr. Leblanc told Dr. Shah. Patient will be admitted for inpatient evaluation by cardiology. (Arnulfo Lal) Chest Pain MDM - Differential Diagnosis AMI, ACS <Baldemar Morales - Last Filed: 02/25/19 14:24> - MDM Patient is an 79-year-old female with history of A. fib and CVA is presenting to emergency Department with a chief complaint of chest pain. Patient had chest pressure has been ongoing for about 3 days physical examination is unremarkable. EKG is indicative of biphasic T waves. Patient took aspirin 325 prior to the arrival so none was given here. Initial troponins are elevated at 9. Nitropaste applied. eliquis is on hold. Patient placed on low intensity heparin, Dr. Lal also examined the patient and she will be admitted for further medical management. Cardiology consulted. (Baldemar Morales) Disposition Is patient prescribed a controlled substance at d/c from ED?: No Time of Disposition: 14:07 <Baldemar Morales - Last Filed: 02/25/19 14:24> <Arnulfo Lal - Last Filed: 02/25/19 14:27> Clinical Impression: Chest pain, Elevated troponin Disposition: HOME SELF-CARE Condition: Stable Instructions (If sedation given, give patient instructions): Chest Pain (ED) Additional Instructions: Patient will be admitted Referrals: Radha Khan MD [Primary Care Provider] - 1-2 days
--- NOTE | 2019-02-25 12:52 | XR ---
EXAMINATION TYPE: XR chest 2V DATE OF EXAM: 02/25/2019 HISTORY: Chest Pain. REFERENCE: Previous study dated 01/18 19. FINDINGS: Lung volumes are prominent. The heart is mildly enlarged. There is blunting of both CP angl es. I could not exclude small effusions. There is an S-shaped scoliosis convex to the left in the thoracic spine and to the right lumbar spine . IMPRESSION: 1. COPD. 2. MILD CARDIOMEGALY. 3. I CANNOT EXCLUDE SMALL, BILATERAL EFFUSIONS. 4. SCOLIOSIS.
[2019-02-25 13:05] LABS: Basophils % (A) 0 %; Eosinophils % (A) 0 %; HGB 10.3 gm/dL (11.4-16.0); Lymphocytes # (A) 0.9 k/uL (1.0-4.8); Lymphocytes % (A) 8 %; MCH 27.9 pg (25.0-35.0); MCHC 31.1 g/dL (31.0-37.0); MCV 89.9 fL (80.0-100.0); Monocytes # (A) 0.9 k/uL (0-1.0); Monocytes % (A) 8 %; Neutrophils # (A) 9.3 k/uL (1.3-7.7); Neutrophils % (A) 83 %; Platelet Count 311 k/uL (150-450); RBC 3.67 m/uL (3.80-5.40); RDW 14.4 % (11.5-15.5); WBC 11.2 k/uL (3.8-10.6)
[2019-02-25 13:19] LABS: Partial Thromboplastin Time 30.5 sec (22.0-30.0); Prothrombin Time 10.4 sec (9.0-12.0)
[2019-02-25 13:30] LABS: Calcium 9.3 mg/dL (8.4-10.2); Potassium 3.9 mmol/L (3.5-5.1); Total Bilirubin 0.6 mg/dL (0.2-1.3); Total Protein 7.1 g/dL (6.3-8.2)
[2019-02-25] MEDS ORDERED: NITROGLYCERIN OINT 1 INCH/GM PACKET TOPICAL STA (14:00)
[2019-02-25] MEDS ORDERED: NITROGLYCERIN SL TABS 0.4 MG TAB SUBLINGUAL PRN (14:01)
[2019-02-25] MEDS ORDERED: HEPARIN SODIUM,PORCINE 5,000 UNIT/ML 1 ML VIAL IV ONE (14:24)
[2019-02-25] MEDS ORDERED: HEPARIN SODIUM,PORCINE 5,000 UNIT/ML 1 ML VIAL IV PRN (14:24)
[2019-02-25] MEDS ORDERED: HEPARIN SOD,PORK IN 0.45% NACL 25,000 UNIT in 0.45% NACL 1 250ML.BAG IV SCH (14:30)
--- NOTE | 2019-02-25 16:10 | P.HPIM ---
History of Present Illness H&P Date: 02/25/19 Chief Complaint: Non-ST elevation MA This is an 79-year-old female one of Dr. Khan with a previous medical history significant for hypertension and hypertensive cardiovascular disease, hyperlipidemia, osteoarthritis, hypothyroidism, recurrent UTI, history of TIA/CVA, patient underwent left total hip arthroplasty anterior approach about a month ago and she developed to have a 6 atrial fibrillation with rapid ventricular response postoperatively, she was seen in consultation by cardiology at that time, and the patient was started on Eliquis 5 mg orally twice every day along with flecainide twice every day, and the patient was sent home, patient presented to the emergency department at the [facility] today after she developed to have an increased indigestion on night and she was feeling hot and cold at the same time on Wednesday she felt extremely weak did not do anything about it, today she woke up in the morning and her pain was a little bit higher and went into the left short the left arm she took an aspirin 325 mg she felt a lot better and her Adalberto brought her into the ER by his car for evaluation EKG did not show evidence of acute ST elevation, however her troponin was elevated at 9 patient was admitted to the hospital with non-ST elevation MA, she was started on heparin drip she was given aspirin and she was admitted to the hospital for evaluation by by cardiology . Review of Systems Constitutional: Denies anorexia, Denies chronic headaches, Denies lethargy, Denies weakness, Denies weight gain, Denies weight loss Eyes: denies blurred vision, denies bulging eye, denies decreased vision Ears: deny: decreased hearing Ears, nose, mouth and throat: Denies dysphagia, Denies neck lump, Denies swell ing in mouth, Denies sore throat Cardiovascular: Reports chest pain, Reports decreased exercise tolerance, Reports dyspnea on exertion, Reports shortness of breath, Denies lig htheadedness, Denies rapid heart beat, Denies syncope Respiratory: Denies congestion, Denies cough with sputum, Denies home oxygen, Denies respiratory infections, Denies sleep apnea, Denies snoring, Denies wheezing Gastrointestinal: Reports dyspepsia, Reports heartburn, Reports indigestion, Reports nausea, Denies abdominal pain, Denies loss of appetite, Denies melena, Denies vomiting Genitourinary: Denies dysuria, Denies hematuria Menstruation: Reports postmenopausal Musculoskeletal: Denies myalgias Musculoskeletal: left: hip pain, absent: ankle pain, ankle stiffness, ankle swelling, elbow pain, elbow stiffness, elbow swelling, foot pain, foot stiffness, foot swelling, hand pain, hand stiffness, hand swelling, hip stiffness, hip swelling, knee pain, knee stiffness, knee swelling, shoulder pain, shoulder stiffness, shoulder swelling, wrist pain, wrist stiffness, wrist swelling Neurological: Denies numbness, Denies weakness Psychiatric: Denies anxiety, Denies depression Endocrine: Denies fatigue, Denies weight change Past Medical History Past Medical History: Atrial Fibrillation, Coronary Artery Disease (CAD), CVA/TIA, Hyperlipidemia, Hypertension, Osteoarthritis (OA), Thyroid Disorder Additional Past Medical History / Comment(s): chronic UTI's, TIA 2002-no effects, on rx for UTI, History of Any Multi-Drug Resistant Organisms: None Reported Past Surgical History: Joint Replacement, Orthopedic Surgery, Tonsillectomy, Tubal Ligation Additional Past Surgical History / Comment(s): rt great toe surgery, mass removed from left great toe, elliot cataracts, left eye laser surgery, left hip replacement Past Anesthesia/Blood Transfusion Reactions: No Reported Reaction Past Psychological History: Anxiety Smoking Status: Never smoker Past Alcohol Use History: None Reported Past Drug Use History: None Reported - Past Family History Mother Family Medical History: Coronary Artery Disease (CAD) Additional Family Medical History / Comment(s): Mother at age 82 from coronary artery disease and also had osteoarthritis. Father Family Medical History: Myocardial Infarction ([place]) Additional Family Medical History / Comment(s): Father at age 82 from a joss cardial infarction. Sister(s) Family Medical History: No Reported History Additional Family Medical History / Comment(s): Patient has 1 sister with no major medical problems. Son(s) Family Medical History: No Reported History Additional Family Medical History / Comment(s): The patient has 2 sons with no major medical problems. Daughter(s) Family Medical History: No Reported History Additional Family Medical History / Comment(s): Patient has one daughter with no major medical problems. Medications and Allergies Home Medications Medication Instructions Recorded Confirmed Type Levothyroxine Sodium [Synthroid] 50 mcg PO DAILY 12/21/18 02/25/19 History Apixaban [Eliquis] 5 mg PO BID #60 tab 01/20/19 02/25/19 Rx Famotidine [Pepcid] 20 mg PO DAILY tab 01/20/19 02/25/19 Rx Flecainide [Tambocor] 50 mg PO Q12HR #60 tab 01/20/19 02/25/19 Rx Losartan Potassium 50 mg PO DAILY 02/25/19 02/25/19 History Metoprolol Tartrate [Lopressor] 12.5 mg PO BID 02/25/19 02/25/19 History Multivitamins, Thera [Multivitamin 1 tab PO DAILY 02/25/19 02/25/19 History (formulary)] Simvastatin [Zocor] 40 mg PO HS 02/25/19 02/25/19 History Allergies Allergy/AdvReac Type Severity Reaction Status Date / Time Sulfa (Sulfonamide Allergy Rash/Hives Verified 02/25/19 14:51 Antibiotics) Physical Exam Vitals: Vital Signs Temp Pulse Resp BP Pulse Ox 02/25/19 15:30 65 16 159/86 98 02/25/19 13:05 67 16 147/86 98 02/25/19 12:16 16 02/25/19 12:04 98.1 F 82 16 129/80 96 Intake and Output 02/25/19 02/25/19 02/25/19 06:59 14:59 22:59 Other: Weight 68.492 kg - Constitutional General appearance: average body habitus, no acute distress - EENT Eyes: anicteric sclerae, EOMI, PERRLA, no ptosis, no scleral icterus, normal appearance ENT: hearing grossly normal, NA/AT, normal oropharynx, no thrush Ears: bilateral: normal - Neck Neck: no lymphadenopathy, normal ROM, no rigidity, no stridor, no thyromegaly Carotids: bilateral: upstroke normal Thyroid: bilateral: normal size - Respiratory Respiratory: bilateral: diminished, negative: dullness, rales, rhonchi, wh eezing, prolonged expiration, prolonged inspiration - Cardiovascular Rhythm: regular Heart sounds: normal: S1, S2 Abnormal Heart Sounds: systolic murmur, no S3 Gallop, no S4 Gallop, no click - Gastrointestinal General gastrointestinal: normal bowel sounds, soft, no splenomegaly, no tenderness, no umbilical hernia, no ventral hernia - Integumentary Integumentary: normal, normal turgor - Neurologic Neurologic: CNII-XII intact - Musculoskeletal Musculoskeletal: gait normal, generalized weakness, strength equal bilaterally - Psychiatric Psychiatric: A&O x's 3, appropriate affect, intact judgment & insight Results CBC & Chem 7: 02/25/19 12:55 02/25/19 12:55 Labs: Abnormal Lab Results - Last 24 Hours (Table) 02/25/19 02/25/19 02/25/19 Range/Units 12:55 12:55 12:55 WBC 11.2 H (3.8-10.6) k/uL RBC 3.67 L (3.80-5.40) m/uL Hgb 10.3 L (11.4-16.0) gm/dL Hct 33.0 L (34.0-46.0) % Neutrophils # 9.3 H (1.3-7.7) k/uL Lymphocytes # 0.9 L (1.0-4.8) k/uL APTT 30.5 H (22.0-30.0) sec BUN 18 H (7-17) mg/dL Glucose 140 H (74-99) mg/dL AST 102 H (14-36) U/L Troponin I (0.000-0.034) ng/mL 02/25/19 Range/Units 12:55 WBC (3.8-10.6) k/uL RBC (3.80-5.40) m/uL Hgb (11.4-16.0) gm/dL Hct (34.0-46.0) % Neutrophils # (1.3-7.7) k/uL Lymphocytes # (1.0-4.8) k/uL APTT (22.0-30.0) sec BUN (7-17) mg/dL Glucose (74-99) mg/dL AST (14-36) U/L Troponin I 9.690 H* (0.000-0.034) ng/mL Thrombosis Risk Factor Assmnt - DVT/VTE Prophylaxis DVT/VTE Prophylaxis: Pharmacologic Prophylaxis ordered, Mechanical Prophylaxis ordered Assessment and Plan Assessment: Assessment and plan: 1. Non-ST elevation MA. Keep the patient on nothing per mouth until evaluation by cardiology for possible left heart catheterization, continue Lopressor 12.5 mg orally twice every day, continue aspirin 325 mg orally once every day, continue Lipitor 80 mg orally once every day, echocardiogram. 2. Status post recent left total hip arthroplasty. Doing much better. 3. Hypertension and hypertensive cardiovascular disease. Continue patient on Lopressor 12.5 mg orally twice every day, losartan 50 mg orally once every day. 4. Hyperlipidemia. Continue patient on Lipitor 80 mg orally once every day. 5. Paroxysmal atrial fibrillation. Hold Eliquis for now due to possible left heart catheterization, continue flecainide 50 mg orally twice every day, Lopressor 12.5 mg orally twice every day. 6. Hypothyroidism. Continue levothyroxine 75 g orally once every day. 7. GERD. Continue Pepcid 20 mg orally once every day. 8. DVT prophylaxis. Continue heparin drip. 9. GI prophylaxis. Continue Pepcid. 10. Admitted to inpatient. Estimated length of stay 2 midnights. 11. Patient is full code .
[2019-02-25 19:02] LABS: Appearance,Urine Clear (Clear); Bacteria,Urine Rare /hpf; Bilirubin,Urine Negative (Negative); Blood,Urine Trace (Negative); Color,Urine Light Yellow; Glucose,Urine (UA) Negative (Negative); Ketones,Urine Negative (Negative); Leukocyte Esterase,Urine Negative (Negative); Mucus,Urine Rare /hpf; Nitrite,Urine Negative (Negative); PH, Urine 6.5 (5.0-8.0); Protein,Urine Negative (Negative); RBC,Urine 1 /hpf (0-5); Specific Gravity,Urine 1.009 (1.001-1.035); Squamous Epithelial Cell,Urine 1 /hpf (0-4); Urobilinogen,Urine <2.0 mg/dL (<2.0); WBC,Urine <1 /hpf (0-5)
[2019-02-25] MEDS ORDERED: FLECAINIDE 50 MG TAB PO SCH (21:00)
[2019-02-25] MEDS ORDERED: METOPROLOL TARTRATE 12.5 MG TAB PO SCH (21:00)
[2019-02-25] MEDS: NITROGLYCERIN OINT 1 INCH/GM PACKET TOPICAL SCH (23:55)
[2019-02-26] MEDS ORDERED: ASPIRIN 325 MG TAB PO STA (00:02)
[2019-02-26] MEDS ORDERED: NITROGLYCERIN SL TABS 0.4 MG TAB SUBLINGUAL PRN ×2 (00:02→12:31)
[2019-02-26] MEDS ORDERED: ALPRAZolam 0.5 MG TAB PO PRN (00:02)
[2019-02-26] MEDS ORDERED: SODIUM CHLORIDE 0.9% 1,000 ML in EMPTY BAG 1 BAG IV ONE (00:02)
[2019-02-26] MEDS ORDERED: ATORVASTATIN 80 MG TAB PO STA (00:02)
[2019-02-26] MEDS ORDERED: ALPRAZolam 0.25 MG TAB PO PRN (00:02)
[2019-02-26] MEDS: LOSARTAN 50 MG TAB PO SCH (06:25)
[2019-02-26] MEDS: LEVOTHYROXINE 50 MCG TAB PO SCH (06:25)
[2019-02-26] MEDS: MULTIVITAMINS, THERA 1 EACH TAB PO SCH (06:25)
[2019-02-26] MEDS: FAMOTIDINE 20 MG TAB PO SCH (06:25)
[2019-02-26] MEDS: CARVEDILOL 3.125 MG TAB PO SCH ×2 (06:25→18:02)
[2019-02-26] MEDS: NITROGLYCERIN OINT 1 INCH/GM PACKET TOPICAL SCH ×2 (06:26→12:12)
[2019-02-26] MEDS: ATORVASTATIN 80 MG TAB PO SCH (06:27)
[2019-02-26 06:58] LABS: Basophils % (A) 0 %; Eosinophils # (A) 0.1 k/uL (0-0.7); Eosinophils % (A) 1 %; HGB 9.3 gm/dL (11.4-16.0); Hypochromasia Slight; Lymphocytes # (A) 1.6 k/uL (1.0-4.8); Lymphocytes % (A) 16 %; MCV 90.4 fL (80.0-100.0); Mean Platelet Volume 6.2; Monocytes # (A) 0.9 k/uL (0-1.0); Monocytes % (A) 9 %; Neutrophils # (A) 6.8 k/uL (1.3-7.7); Neutrophils % (A) 71 %; Platelet Count 287 k/uL (150-450); RDW 14.2 % (11.5-15.5); WBC 9.6 k/uL (3.8-10.6)
[2019-02-26 07:24] LABS: Albumin 3.5 g/dL (3.5-5.0); Calcium 9.4 mg/dL (8.4-10.2); Potassium 4.3 mmol/L (3.5-5.1); Total Bilirubin 0.7 mg/dL (0.2-1.3); Total Protein 6.3 g/dL (6.3-8.2)
--- NOTE | 2019-02-26 07:35 | P.CRDCN ---
History of Present Illness History of present illness: This is Dr. Leblanc dictating a consult on this patient The patient was interviewed and examined by me on Wednesday evening 02/25/2019 IMPRESSION / ASSESSMENT: Non-Q wave myocardial infarction Pain-free prior to arrival in the emergency room and pain-free thereafter Hypertension, initially blood pressure was elevated PLAN: Aspirin atorvastatin carvedilol started for blood pressure control, continue losartan On IV heparin Flecainide discontinued Apixaban discontinued Proceed with coronary angiography on Wednesday HPI 79-year-old female presenting with recurrent chest discomfort for the last 3 days prior to admission. She was just not feeling well. The pain was midsternal initially nonradiating but then subsequently prior to admission she had discomfort in her left upper arm. She pain on then once again on Wednesday and thereafter began on Wednesday following which she came in. On Wednesday she had discomfort in the left arm as well At that point she took a baby aspirin and the pain went away. She has not had any further chest discomfort thereafter When she arrived in the emergency room she already been relieved of her pain She has a history of hypertension atrial fibrillation on flecainide ROS: No fever chills or rigors, no cough, phlegm or expectoration, no nausea, vomiting or diarrhea, no hematuria, dysuria, no musculoskeletal complaints, no strokes or seizures, no skin lesions. EXAMINATION: Initially elevated 164/97 157/82 Ulcerate in the 70s Afebrile 97.8F Resting comfortably in bed when I saw her no orthopnea Breath sounds are equal bilaterally no rhonchi no crackles Normal heart sounds normal S1 normal S2 no murmurs to gallop or rub Abdomen is soft nontender Next and is warm no edema REVIEW OF LABS, ECG & MEDICAL DATA twelve-lead ECG shows sinus rhythm with ST segment abnormalities in V4 and V5 V6 and leads 1 and aVL Hemoglobin 9.3 Electrolytes normal BUN 18 creatinine 0.86 The first troponin was 9.9 second 112.9 and the third one down to 9.7 Previous LV function was normal in January 2019 Past Medical History Past Medical History: Atrial Fibrillation, Coronary Artery Disease (CAD), CVA/TIA, Hyperlipidemia, Hypertension, Osteoarthritis (OA), Thyroid Disorder Additional Past Medical History / Comment(s): chronic UTI's, TIA 2002-no effects, on rx for UTI, History of Any Multi-Drug Resistant Organisms: None Reported Past Surgical History: Joint Replacement, Orthopedic Surgery, Tonsillectomy, Tubal Ligation Additional Past Surgical History / Comment(s): rt great toe surgery, mass removed from left great toe, elliot cataracts, left eye laser surgery, left hip replacement Past Anesthesia/Blood Transfusion Reactions: No Reported Reaction Past Psychological History: Anxiety Smoking Status: Never smoker Past Alcohol Use History: None Reported Past Drug Use History: None Reported - Past Family History Mother Family Medical History: Coronary Artery Disease (CAD) Additional Family Medical History / Comment(s): Mother at age 82 from coronary artery disease and also had osteoarthritis. Father Family Medical History: Myocardial Infarction (CT) Additional Family Medical History / Comment(s): Father at age 82 from a myocardial infarction. Sister(s) Family Medical History: No Reported History Additional Family Medical History / Comment(s): Patient has 1 sister with no major medical problems. Son(s) Family Medical History: No Reported History Additional Family Medical History / Comment(s): The patient has 2 sons with no major medical problems. Daughter(s) Family Medical History: No Reported History Additional Family Medical History / Comment(s): Patient has one daughter with no major medical problems. Medications and Allergies Home Medications Medication Instructions Recorded Confirmed Type Levothyroxine Sodium [Synthroid] 50 mcg PO DAILY 12/21/18 02/25/19 History Apixaban [Eliquis] 5 mg PO BID #60 tab 01/20/19 02/25/19 Rx Famotidine [Pepcid] 20 mg PO DAILY tab 01/20/19 02/25/19 Rx Flecainide [Tambocor] 50 mg PO Q12HR #60 tab 01/20/19 02/25/19 Rx Losartan Potassium 50 mg PO DAILY 02/25/19 02/25/19 History Metoprolol Tartrate [Lopressor] 12.5 mg PO BID 02/25/19 02/25/19 History Multivitamins, Thera [Multivitamin 1 tab PO DAILY 02/25/19 02/25/19 History (formulary)] Simvastatin [Zocor] 40 mg PO HS 02/25/19 02/25/19 History Allergies Allergy/AdvReac Type Severity Reaction Status Date / Time Sulfa (Sulfonamide Allergy Rash/Hives Verified 02/25/19 14:51 Antibiotics) Physical Exam Vitals: Vital Signs Temp Pulse Pulse Resp BP BP Pulse Ox 02/26/19 04:00 98.3 F 68 18 112/57 94 L 02/26/19 00:00 98.3 F 63 18 120/70 94 L 02/25/19 20:00 97.8 F 77 17 123/58 94 L 02/25/19 16:00 97.8 F 62 66 16 164/97 157/82 98 02/25/19 15:30 65 16 159/86 98 02/25/19 13:05 67 16 147/86 98 02/25/19 12:16 16 02/25/19 12:04 98.1 F 82 16 129/80 96 Intake and Output 02/25/19 02/26/19 02/26/19 22:59 06:59 14:59 Intake Total 85.204 Output Total 600 250 Balance -514.796 -250 Intake: Amount of Fluid Infused ( 30 ml) Intake, IV Titration 55.204 Amount Heparin Sod,Pork in 0.45% 55.204 NaCl 25,000 unit In 0.45 % NaCl 1 250ml.bag @ 12 UNITS/KG/HR 8.219 mls/hr IV .Q24H [facility] Rx#: [id number] Output: Urine 600 250 Other: Voiding Method Incontinent Incontinent # Voids 0 Weight 68.2 kg Results 02/26/19 06:14 02/26/19 06:14 Cardiac Enzymes 02/25/19 02/25/19 02/25/19 Range/Units 12:55 12:55 19:16 AST 102 H (14-36) U/L Troponin I 9.690 H* 12.900 H* (0.000-0.034) ng/mL 02/26/19 02/26/19 Range/Units 00:48 06:14 AST 73 H (14-36) U/L Troponin I 9.930 H* (0.000-0.034) ng/mL Coagulation 02/25/19 02/25/19 02/26/19 Range/Units 12:55 22:15 06:14 PT 10.4 (9.0-12.0) sec APTT 30.5 H 58.3 H 52.1 H (22.0-30.0) sec Lipids 10/20/19 Range/Units 06:14 Triglycerides 70 (<150) mg/dL Cholesterol 127 (<200) mg/dL HDL Cholesterol 50 (40-60) mg/dL CBC 02/25/19 02/26/19 Range/Units 12:55 06:14 WBC 11.2 H 9.6 (3.8-10.6) k/uL RBC 3.67 L 3.20 L (3.80-5.40) m/uL Hgb 10.3 L 9.3 L (11.4-16.0) gm/dL Hct 33.0 L 29.0 L (34.0-46.0) % Plt Count 311 287 (150-450) k/uL Comprehensive Metabolic Panel 02/25/19 02/26/19 Range/Units 12:55 06:14 Sodium 139 142 (137-145) mmol/L Potassium 3.9 4.3 (3.5-5.1) mmol/L Chloride 103 108 H (98-107) mmol/L Carbon Dioxide 25 25 (22-30) mmol/L BUN 18 H 18 H (7-17) mg/dL Creatinine 0.83 0.86 (0.52-1.04) mg/dL Glucose 140 H 102 H (74-99) mg/dL Calcium 9.3 9.4 (8.4-10.2) mg/dL AST 102 H 73 H (14-36) U/L ALT 43 40 (9-52) U/L Alkaline Phosphatase 103 96 (38-126) U/L Total Protein 7.1 6.3 (6.3-8.2) g/dL Albumin 4.0 3.5 (3.5-5.0) g/dL Current Medications Generic Name Dose Route Start Last Admin Trade Name Freq PRN Reason Stop Dose Admin Alprazolam 0.25 mg 02/26/19 00:02 Xanax PO Q6HR PRN Mild Anxiety Alprazolam 0.5 mg 02/26/19 00:02 Xanax PO Q6HR PRN Moderate Anxiety Aspirin 81 mg 02/26/19 09:00 02/26/19 06:27 Aspirin PO Not Given DAILY [facility] Atorvastatin Calcium 80 mg 02/26/19 09:00 02/26/19 06:27 Lipitor PO Not Given DAILY [facility] Carvedilol 3.125 mg 02/26/19 07:30 02/26/19 06:25 Coreg PO 3.125 mg BID-W/MEALS GARC[facility]A Administration Famotidine 20 mg 02/26/19 09:00 02/26/19 06:25 Pepcid PO 20 mg DAILY GARCÍA Administration Heparin Sodium (Porcine) 0 unit 02/25/19 14:24 Heparin IV PER PROTOCOL PRN Low PTT Protocol Heparin Sodium/Sodium Chloride 250 mls @ 8.219 mls/hr 02/25/19 14:30 02/25/19 22:37 25,000 unit/ Sodium Chloride IV 12 units/kg/hr .Q24H [facility] 8.219 mls/hr Titration Protocol 12 UNITS/KG/HR Sodium Chloride 1,000 ml/ IV 1,000 mls @ 68.492 mls/hr 02/26/19 00:02 02/25/19 23:50 Solution IV 02/26/19 14:38 68.492 mls/hr .[id number] ONE Administration 1 ML/KG/HR Levothyroxine Sodium 50 mcg 02/26/19 06:30 02/26/19 06:25 Synthroid PO 50 mcg DAILY@0630 GARCÍA Administration Losartan Potassium 50 mg 02/26/19 09:00 02/26/19 06:25 Cozaar PO 50 mg DAILY GARCÍA Administration Multivitamins 1 each 02/26/19 09:00 02/26/19 06:25 Theragran PO 1 each DAILY GARCÍA Administration Nitroglycerin 0.4 mg 02/25/19 14:01 Nitrostat SUBLINGUAL Q5M PRN Chest Pain Nitroglycerin 1 inch 02/26/19 00:00 02/26/19 06:26 Nitro-Bid Oint TOPICAL 1 inch Q6HR GARCÍA Administration Nitroglycerin 0.4 mg 02/26/19 00:02 Nitrostat SUBLINGUAL Q5M PRN Chest Pain Intake and Output 02/25/19 02/26/19 02/26/19 22:59 06:59 14:59 Intake Total 85.204 Output Total 600 250 Balance -514.796 -250 Intake: Amount of Fluid Infused ( 30 ml) Intake, IV Titration 55.204 Amount Heparin Sod,Pork in 0.45% 55.204 NaCl 25,000 unit In 0.45 % NaCl 1 250ml.bag @ 12 UNITS/KG/HR 8.219 mls/hr IV .Q24H [facility] Rx#: [id number] Output: Urine 600 250 Other: Voiding Method Incontinent Incontinent # Voids 0 Weight 68.2 kg 02/26/19 06:14 02/26/19 06:14
[2019-02-26] MEDS ORDERED: ASPIRIN 325 MG TAB PO SCH (09:00)
[2019-02-26] MEDS ORDERED: ASPIRIN 81 MG PO SCH (09:00)
[2019-02-26] MEDS ORDERED: IV FLUID CONTINUATION 1,000 ML IV ONE (09:50)
[2019-02-26] MEDS ORDERED: LIDOCAINE 1% INJ 10MG/ML (20 ML MDV) ONE (09:56)
[2019-02-26] MEDS ORDERED: VERAPAMIL 2.5 MG/ML 2 ML AMP ONE (09:56)
[2019-02-26] MEDS ORDERED: fentaNYL (PF) 50 MCG/ML 2 ML AMP ONE (09:57)
[2019-02-26] MEDS ORDERED: fentaNYL (PF) 50 MCG/ML 2 ML AMP IVP ONE (10:15)
[2019-02-26] MEDS ORDERED: LIDOCAINE 1% INJ 10MG/ML (20 ML MDV) SQ ONE (10:16)
[2019-02-26] MEDS ORDERED: VERAPAMIL SYRINGE (5 MG/10 ML) INTRAARTER ONE (10:20)
[2019-02-26] MEDS ORDERED: CLOPIDOGREL 75 MG TAB ONE (10:31)
[2019-02-26] MEDS ORDERED: BIVALIRUDIN BOLUS 250 MG/50 ML IV ONE (10:31)
[2019-02-26] MEDS ORDERED: BIVALIRUDIN 250 MG in SODIUM CHLORIDE 0.9% 50 ML IV ONE ×2 (10:32→11:38)
[2019-02-26] MEDS ORDERED: NITROGLYCERIN 1000MCG/10ML SYRINGE INTRAARTER ONE (10:34)
[2019-02-26] MEDS: NITROGLYCERIN 1000MCG/10ML SYRINGE INTRAARTER ONE ×3 (10:35→12:00)
[2019-02-26] MEDS ORDERED: CLOPIDOGREL 75 MG TAB PO ONE (10:35)
[2019-02-26] MEDS ORDERED: IOPAMIDOL-370 125ML BTL INJ ONE (10:38)
--- NOTE | 2019-02-26 10:41 | P.PN ---
Subjective Progress Note Date: 02/26/19 This is an 79-year-old female one of Dr. Khan with a previous medical history significant for hypertension and hypertensive cardiovascular disease, hyperlipidemia, osteoarthritis, hypothyroidism, recurrent UTI, history of TIA/CVA, patient underwent left total hip arthroplasty anterior approach about a month ago and she developed to have a 6 atrial fibrillation with rapid ventricular response postoperatively, she was seen in consultation by cardiology at that time, and the patient was started on Eliquis 5 mg orally twice every day along with flecainide twice every day, and the patient was sent home, patient presented to the emergency department at the [facility] today after she developed to have an increased indigestion on night and she was feeling hot and cold at the same time on Wednesday she felt extremely weak did not do anything about it, today she woke up in the morning and her pain was a little bit higher and went into the left short the left arm she took an aspirin 325 mg she felt a lot better and her Adalberto brought her into the ER by his car for evaluation EKG did not show evidence of acute ST elevation, however her troponin was elevated at 9 patient was admitted to the hospital with non-ST elevation DE, she was started on heparin drip she was given aspirin and she was admitted to the hospital for evaluation by by cardiology . 02/26: Patient is sitting up in bed in no apparent distress she denies any chest pain or shortness of breath, she is scheduled to go for left heart catheterization today she has no abdominal pain, she has no evidence of any heart block or any congestive heart failure . Objective - Vital Signs Vital signs: Vital Signs Temp 98.3 F 02/26/19 04:00 Pulse 68 02/26/19 04:00 Resp 18 02/26/19 04:00 BP 112/57 02/26/19 04:00 Pulse Ox 94 L 02/26/19 04:00 Intake & Output 02/25/19 02/26/19 02/26/19 18:59 06:59 18:59 Intake Total 30 55.204 Output Total 850 Balance 30 -794.796 Weight 68.492 kg 68.2 kg Intake: Amount of Fluid Infused ( 30 ml) Intake, IV Titration 55.204 Amount Heparin Sod,Pork in 0.45% 55.204 NaCl 25,000 unit In 0.45 % NaCl 1 250ml.bag @ 12 UNITS/KG/HR 8.219 mls/hr IV .Q24H [facility] Rx#: [id number] Output: Urine 850 Other: Voiding Method Incontinent Incontinent # Voids 0 - Exam - Constitutional General appearance: average body habitus, no acute distress - EENT Eyes: anicteric sclerae, EOMI, PERRLA, no ptosis, no scleral icterus, normal appearance ENT: hearing grossly normal, NA/AT, normal oropharynx, no thrush Ears: bilateral: normal - Neck Neck: no lymphadenopathy, normal ROM, no rigidity, no stridor, no thyromegaly Carotids: bilateral: upstroke normal Thyroid: bilateral: normal size - Respiratory Respiratory: bilateral: diminished, negative: dullness, rales, rhonchi, wheezing, prolonged expiration, prolonged inspiration - Cardiovascular Rhythm: regular Heart sounds: normal: S1, S2 Abnormal Heart Sounds: systolic murmur, no S3 Gallop, no S4 Gallop, no click - Gastrointestinal General gastrointestinal: normal bowel sounds, soft, no splenomegaly, no tenderness, no umbilical hernia, no ventral hernia - Integumentary Integumentary: normal, normal turgor - Neurologic Neurologic: CNII-XII intact - Musculoskeletal Musculoskeletal: gait normal, generalized weakness, strength equal bilaterally - Psychiatric Psychiatric: A&O x's 3, appropriate affect, intact judgment & insight - Labs CBC & Chem 7: 02/26/19 06:14 02/26/19 06:14 Labs: Abnormal Lab Results - Last 24 Hours (Table) 02/25/19 02/25/19 02/25/19 Range/Units 12:55 12:55 12:55 WBC 11.2 H (3.8-10.6) k/uL RBC 3.67 L (3.80-5.40) m/uL Hgb 10.3 L (11.4-16.0) gm/dL Hct 33.0 L (34.0-46.0) % Neutrophils # 9.3 H (1.3-7.7) k/uL Lymphocytes # 0.9 L (1.0-4.8) k/uL APTT 30.5 H (22.0-30.0) sec BUN 18 H (7-17) mg/dL Glucose 140 H (74-99) mg/dL AST 102 H (14-36) U/L Troponin I (0.000-0.034) ng/mL Urine Blood (Negative) Urine Bacteria (None) /hpf Urine Mucus (None) /hpf 02/25/19 02/25/19 02/25/19 Range/Units 12:55 18:33 19:16 WBC (3.8-10.6) k/uL RBC (3.80-5.40) m/uL Hgb (11.4-16.0) gm/dL Hct (34.0-46.0) % Neutrophils # (1.3-7.7) k/uL Lymphocytes # (1.0-4.8) k/uL APTT (22.0-30.0) sec BUN (7-17) mg/dL Glucose (74-99) mg/dL AST (14-36) U/L Troponin I 9.690 H* 12.900 H* (0.000-0.034) ng/mL Urine Blood Trace H (Negative) Urine Bacteria Rare H (None) /hpf Urine Mucus Rare H (None) /hpf 02/25/19 02/26/19 02/26/19 Range/Units 22:15 00:48 06:14 WBC (3.8-10.6) k/uL RBC 3.20 L (3.80-5.40) m/uL Hgb 9.3 L (11.4-16.0) gm/dL Hct 29.0 L (34.0-46.0) % Neutrophils # (1.3-7.7) k/uL Lymphocytes # (1.0-4.8) k/uL APTT 58.3 H (22.0-30.0) sec BUN (7-17) mg/dL Glucose (74-99) mg/dL AST (14-36) U/L Troponin I 9.930 H* (0.000-0.034) ng/mL Urine Blood (Negative) Urine Bacteria (None) /hpf Urine Mucus (None) /hpf 02/26/19 Range/Units 06:14 WBC (3.8-10.6) k/uL RBC (3.80-5.40) m/uL Hgb (11.4-16.0) gm/dL Hct (34.0-46.0) % Neutrophils # (1.3-7.7) k/uL Lymphocytes # (1.0-4.8) k/uL APTT 52.1 H (22.0-30.0) sec BUN (7-17) mg/dL Glucose (74-99) mg/dL AST (14-36) U/L Troponin I (0.000-0.034) ng/mL Urine Blood (Negative) Urine Bacteria (None) /hpf Urine Mucus (None) /hpf Assessment and Plan Assessment: Assessment and plan: 1. Non-ST elevation DE. Patient is scheduled for heart catheterization today, continue Lopressor 12.5 mg orally twice every day, continue aspirin 325 mg orally once every day, continue patient also on Lipitor 80 mg orally once every day, hold heparin. 2. Status post recent left total hip arthroplasty. Doing much better. 3. Hypertension and hypertensive cardiovascular disease. Continue patient on Lopressor 12.5 mg orally twice every day, losartan 50 mg orally once every day. 4. Hyperlipidemia. Continue patient on Lipitor 80 mg orally once every day. 5. Paroxysmal atrial fibrillation. Hold Eliquis for now due to possible left heart catheterization, continue flecainide 50 mg orally twice every day, Lopre ssor 12.5 mg orally twice every day. 6. Hypothyroidism. Continue levothyroxine 75 g orally once every day. 7. GERD. Continue Pepcid 20 mg orally once every day. 8. DVT prophylaxis. Continue heparin drip. 9. GI prophylaxis. Continue Pepcid.
[2019-02-26] MEDS ORDERED: IOPAMIDOL-370 100ML BTL INJ ONE ×4 (11:39→12:24)
[2019-02-26] MEDS ORDERED: RX INFO: IV CONTRAST WAS GIVEN 1 EACH MISC MISCELLANE PRN (12:31)
[2019-02-26] MEDS ORDERED: ATROPINE SULFATE 0.1 MG/ML 10ML SYRINGE IV PRN (12:31)
[2019-02-26] MEDS ORDERED: ZOLPIDEM 5 MG TAB PO PRN (12:31)
[2019-02-26] MEDS ORDERED: MAG HYDROX/AL HYDROX/SIMETH 30 ML CUP PO PRN (12:31)
[2019-02-26] MEDS ORDERED: SODIUM CHLORIDE 0.9% 1,000 ML IV SCH (12:45)
--- NOTE | 2019-02-26 13:05 | CC ---
CARDIAC CATHETERIZATION REPORT Mrs. James is an 79-year-old female, with known history of hypertension, hyperlipidemia, paroxysmal atrial fibrillation who presented with symptoms of chest discomfort with T-wave inversion and troponin elevation consistent with non ST-segment elevation myocardial infarction. In view of that, recommendation made regarding cardiac catheterization the procedure as well as risks and complications were discussed with the patient who is in full understanding and agreement. DESCRIPTION OF PROCEDURE: Patient was brought to label sewer in a fasting semi-sedated state after receiving fentanyl and Benadryl and achieving moderate conscious sedated state. Using Xylocaine anesthesia and Seldinger technique, a 6-[place] sheath was introduced in the right radial artery. Selective right and left coronary angiography performed using 5-[place] 3 and half right Bernardino catheter and a 5-[place] FL 3.5 guiding catheter. Images of the coronary artery were performed. Following that, angioplasty and stenting was performed. Following that, a 5-[place] tight pigtail catheter was introduced into the left ventricle and pressures were calculated. Following that, catheter and sheath were removed. Hemostasis was obtained with deployment of a TR band. There was no immediate complication. Patient is returned to her room in stable condition. Of note, the patient received intra-arterial verapamil. FINDINGS: FLUOROSCOPY: There was severe calcification involving all the coronary arteries. SELECTIVE CORONARY ANGIOGRAM: LEFT ANTERIOR DESCENDING ARTERY: This is a large-sized vessel bifurcating into left circumflex, left anterior descending artery, left main coronary artery has no evidence of high-grade stenosis. LEFT ANTERIOR DESCENDING ARTERY: This is a heavily calcified vessel giving rise to a small diagonal branch. The left anterior descending artery proximally has a 20% to 30% plaque in the mid segment and has a 99% stenosis and following the takeoff of a small diagonal branch has a long tubular lesion of 95%. The rest of the vessel has diffuse intimal disease without any evidence of high-grade stenosis. LEFT CIRCUMFLEX: This is a nondominant vessel giving rise to 3 obtuse marginal branches of moderate caliber. The first obtuse marginal branch has tubular area of stenosis up to 80%. The rest of the vessel has diffuse intimal disease up to 30% to 40% without any evidence of high-grade stenosis. RIGHT CORONARY ARTERY:: This is a large dominant vessel bifurcating distally PDA and posterolateral segment and branches. The right coronary artery is heavily calcified throughout its course. It has a 40% to 50% plaque in the PLV and in the PDA. LEFT VENTRICULOGRAM: Left ventriculogram is not performed. HEMODYNAMICS: There was no gradient across the aortic valve the left ventricle end-diastolic pressure was 26-30 mmHg. CONCLUSION: 1. Heavily calcified coronary arteries. 2. Critical stenosis involving the mid LAD in 2 different segments. 3. Significant disease in the first obtuse marginal branch. 4. Mild to moderate disease in the distal left circumflex as well as the right coronary artery. 5. Elevated left ventricular end-diastolic pressure. RECOMMENDATIONS: In view of findings and anatomy, I have recommend proceeding with angioplasty and stenting of the LAD. The procedure as well as risks and complication were discussed with the patient who is in full understanding and agreement. MMODL / IJN: [id number] /
--- NOTE | 2019-02-26 13:14 | PTCA ---
PERCUTANEOUSTRANS CORORONARY ANGIOGRAPHY Mrs. James 79-year-old female known history of hypertension, hyperlipidemia, who presented with evidence of non ST-segment elevation myocardial infarction, underwent cardiac catheterization, was found to have heavily calcified coronary arteries with critical stenosis in a long segment of the LAD. Recommendation made regarding angioplasty and stenting. The procedure as well as risks and complications were discussed with the patient who is in full understanding and agreement. DESCRIPTION OF PROCEDURE: Using the 6-Uzbek FL 3.5 guiding catheter, a 0.014 wire was advanced in the system with ability to cross the 1st lesion, but inability to cross the 2nd lesion. At that point, the wire was kept in place and a 0.014 Whisper J-wire was advanced and positioned distally. Subsequently a 2.5 x 12 mm Euphora balloon was advanced and one inflation the proximal lesion at 10 atmospheres was done. The balloon was removed and multiple attempts to advance a 1.5 x 8 and 1.5 x 6 mm Trek balloon were unsuccessful in the 2nd lesion. At that point, the BMW wire was removed and a GuideLiner was advanced, but in spite of the GuideLiner there were inability to advance the balloon distally, the GuideLiner was removed and attempt to advance a second 0.014 Whisper J-wire next to the first one were unsuccessful. At that point, the guiding catheter, the balloon and the guidewire were removed and the guiding catheter was exchanged to a 6-Uzbek EBU 3.75 guiding catheter. After cannulating the left main, the Whisper J-wire was advanced and positioned distally. Attempts to advance a second 0.014 Whisper J-wire were unsuccessful. That wire was removed and subsequently a Teleporte microcatheter with the Whisper J-wire were advanced with difficulty advancing the Teleporte catheter in the distal mid segment. The wire was exchanged through the Teleporte to a Mailman 0.014 and the Teleporte catheter was removed. Subsequently a 1.5 x 6 mm Trek balloon was advanced in the distal lesion and multiple inflations at maximum of 10 atmospheres were done. The balloon was removed and 2.0 x 12 mm Euphora balloon was advanced, but at that time there was no reflow because of occlusion proximally. That balloon was removed and a 3.5 x 15 mm Xience Becky stent was deployed proximal to the first stent and was dilated at 16 atmospheres. At that point, the balloon was removed and the and 1.5 x 8 mm Trek balloon was advanced and multiple inflations at distal segments were done at a maximum of 10 atmospheres. That balloon was removed and attempt to advance a 2.25 x 23 mm Xience Becky stent were unsuccessful. The stent was removed and a 2.0 x 18 mm Resolute Monroe was advanced, deployed and was dilated at 18 atmospheres. After removing the balloon a 2.0 x 8 mm Resolute Darwin was deployed distal to the last 1 and was dilated at 18 atmospheres and after removing the balloon a 3.0 x 12 mm NC Trek balloon was advanced and inflations in mid segment was done at maximum of 12 atmospheres. Following that, the balloon was removed and a 2.25 x 15 mm NC Trek balloon was advanced in the distal segment and multiple inflations at maximum 14 atmospheres were done. Following that and after removing the balloon, a 3.5 x 15 mm NC Trek balloon was advanced and inflation of the proximal stents were done at a maximum of 12 atmospheres. After the last inflation, after appropriate wait, the balloon and the guidewire were withdrawn back in the guiding catheter. Images were obtained repeated. Those images reveal stable successful stenting. At that point, the guiding catheter, the balloon and the guidewire guide were removed and left ventricular end- diastolic pressure was calculated. Following that, catheter and sheaths were removed. Hemostasis was obtained with deployment of a TR band. There was no immediate complication. Patient is returned to her room in stable condition. Of note, the patient had chest discomfort and EKG changes with the inflation that resolved at the end of the procedure. She received Angiomax per protocol as well as oral loading dose of clopidogrel. RESULTS: Successful stenting of a long segment of the heavily calcified mid and mid distal LAD with reduction of stenosis from 99% to 0%. RECOMMENDATIONS: Patient will be continued on aspirin, Plavix beta evie, and statin. She will be restarted on the anticoagulation because of prior history of paroxysmal atrial fibrillation and her aspirin will be stopped in about 4 weeks. Those findings and recommendations were discussed with the patient and her family and they are in full understanding and agreement. Duration of procedure is 126 minutes. MMODL / IJN: [id number] /
--- NOTE | 2019-02-26 13:21 | LTR ---
DATE OF SERVICE: 02/26/[address] Khan: I had the pleasure of performing angioplasty and stenting on Mrs. James at [facility] on February 26 and a full copy of procedure note will be forwarded to you. In brief, she underwent successful stenting of a long segment of a heavily calcified LAD using drug-eluting stent. I am hopeful that this procedure will stabilize her status and thank you again for allowing me to participate in her care. Please feel free call for any questions. Sincerely, MONIQUE / IJN: [id number] /
[2019-02-26 14:37] VITALS: BMI 26.6
--- NOTE | 2019-02-26 15:00 | ECHOF ---
Referral Reason:NSTEMI MEASUREMENTS -------- HEIGHT: 160.0 cm WEIGHT: 68.0 kg BP: IVSd: 1.1 cm (0.6 - 1.1) LVIDd: 5.3 cm (3.9 - 5.3) LVPWd: 1.1 cm (0.6 - 1.1) IVSs: 1.8 cm LVIDs: 3.2 cm LVPWs: 1.6 cm LA Diam: 3.7 cm (2.7 - 3.8) RVIDd: 2.3 cm (< 3.3) Ao Diam: 3.4 cm (2.0 - 3.7) AV Cusp: 2.0 cm (1.5 - 2.6) EPSS: 0.3 cm MV E Mick: 0.75 m/s MV DecT: 303 ms MV A Mick: 0.59 m/s MV E/A Ratio: 1.26 AR PHT: 831 ms RAP: 5.00 mmHg RVSP: 52.38 mmHg MV EF SLOPE: 53.86 mm/s (70 - 150) MV EXCURSION: 17.31 mm (> 18.000) FINDINGS -------- Sinus rhythm. This was a technically adequate study. The left ventricular size is normal. There is borderline concentric left ventricular hypertrophy. Overall left ventricular systolic function is moderate-severely impaired with, an EF between 30 - 35 %. lARGE APICAL AKINESIS, ONLY BASAL HALF OF LV CONTRACTS The right ventricle is normal in size. The left atrial size is normal. The right atrium is normal in size. Interatrial and interventricular septum intact. There is mild aortic valve sclerosis. There is mild aortic regurgitation. CONCLUSIONS -------- 1. Sinus rhythm. 2. This was a technically adequate study. 3. The left ventricular size is normal. 4. There is borderline concentric left ventricular hypertrophy. 5. Overall left ventricular systolic function is moderate-severely impaired with, an EF between 30 - 35 %. 6. The right ventricle is normal in size. 7. The left atrial size is normal. 8. The right atrium is normal in size. 9. Interatrial and interventricular septum intact. 10. There is mild aortic valve sclerosis. 11. There is mild aortic regurgitation. DIRECTOR OF FIRST IMPRESSIONS: Katey Boyd RD
[2019-02-26] MEDS ORDERED: TICAGRELOR 90 MG TAB ONE (19:27)
[2019-02-27] MEDS: LEVOTHYROXINE 50 MCG TAB PO SCH (06:03)
[2019-02-27] MEDS: CARVEDILOL 3.125 MG TAB PO SCH (06:03)
[2019-02-27 07:27] LABS: Calcium 8.8 mg/dL (8.4-10.2); Potassium 3.7 mmol/L (3.5-5.1)
[2019-02-27] MEDS: FAMOTIDINE 20 MG TAB PO SCH (08:50)
[2019-02-27] MEDS: MULTIVITAMINS, THERA 1 EACH TAB PO SCH (08:50)
[2019-02-27] MEDS: ATORVASTATIN 80 MG TAB PO SCH (08:50)
[2019-02-27] MEDS: ASPIRIN 81 MG PO SCH (08:50)
[2019-02-27] MEDS: SPIRONOLACTONE 25 MG TAB PO SCH (08:50)
[2019-02-27] MEDS: LOSARTAN 50 MG TAB PO SCH (08:50)
[2019-02-27] MEDS: APIXABAN 5 MG TAB PO SCH ×2 (08:50→20:07)
[2019-02-27] MEDS: CLOPIDOGREL 75 MG TAB PO SCH (11:40)
--- NOTE | 2019-02-27 11:50 | P.PN ---
Subjective Progress Note Date: 02/27/19 This is an 79-year-old female admitted to the hospital with a non-ST elevation myocardial infarction. She has a known history of hypertension, hyperlipidemia, was taken to the cardiac catheterization lab and found to have heavily calcified coronary arteries with a critical stenosis in a long segment of the LAD for which the patient had angioplasty and stenting. Echocardiogram with Doppler study revealed moderately to severely impaired ejection fraction of 30-35%. Blood pressure 123/60 with a heart rate in the 60s, 95% on room air. Sodium 138, potassium 3.7, BUN 17 and creatinine 0.8. Patient denies any chest discomfort today, breathing is overall stable. Objective - Vital Signs Vital signs: Vital Signs Temp 97.8 F 02/27/19 08:00 Pulse 68 02/27/19 08:00 Resp 16 02/27/19 08:00 BP 123/65 02/27/19 08:00 Pulse Ox 95 02/27/19 08:00 Intake & Output 02/26/19 02/27/19 02/27/19 18:59 06:59 18:59 Intake Total 685 Balance 685 Weight 68.2 kg 69.2 kg Intake: IV 205 Oral 480 Other: Voiding Method Toilet # Voids 1 1 1 - Exam PHYSICAL EXAMINATION: GENERAL: 79-year-old female in no acute distress at the time of my examination HEENT: Head is atraumatic, normocephalic. Pupils equal, round. Sclera anict maira. Conjunctiva are clear. Mucous membranes of the mouth are moist. Neck is supple. There is no elevated jugular venous pressure. No carotid bruit is heard. HEART EXAMINATION: Heart S1 and S2 with systolic murmur is heard CHEST EXAMINATION: Lungs are clear to auscultation and precussion. No chest wall tenderness is noted on palpation or with deep breathing. ABDOMEN: Soft, nontender. Bowel sounds are heard. No organomegaly noted. EXTREMITIES: 2+ peripheral pulses with no evidence of peripheral edema and no calf tenderness noted. Right radial site clean and dry, good distal pulse NEUROLOGIC patient is awake, alert and oriented 3 . . - Labs CBC & Chem 7: 02/26/19 06:14 02/27/19 06:37 Assessment and Plan Plan: Assessment and plan #1 non-ST elevation myocardial infarction status post angioplasty and stenting of the LAD #2 hypertension #3 hyperlipidemia Plan We will start the patient on Coreg 6.25 mg by mouth twice a day, continue with the rest of her medications which include Eliquis 5 mg one tablet by mouth twice a day, baby aspirin, Lipitor 80, Plavix 75 mg daily, losartan 50 mg daily and Aldactone. Plan for possible discharge home in 24 hours if stable. DNP note has been reviewed, I agree with a documented findings and plan of care. Patient was seen and examined.
--- NOTE | 2019-02-27 15:44 | P.PN ---
Subjective This is an 79-year-old female one of Dr. Khan with a previous medical history significant for hypertension and hypertensive cardiovascular disease, hyperlipidemia, osteoarthritis, hypothyroidism, recurrent UTI, history of TIA/CVA, patient underwent left total hip arthroplasty anterior approach about a month ago and she developed to have a 6 atrial fibrillation with rapid ventricular response postoperatively, she was seen in consultation by cardiology at that time, and the patient was started on Eliquis 5 mg orally twice every day along with flecainide twice every day, and the patient was sent home, patient presented to the emergency department at the [facility] today after she developed to have an increased indigestion on night and she was feeling hot and cold at the same time on Wednesday she felt extremely weak did not do anything about it, today she woke up in the morning and her pain was a little bit higher and went into the left short the left arm she took an aspirin 325 mg she felt a lot better and her Adalberto brought her into the ER by his car for evaluation EKG did not show evidence of acute ST elevation, however her troponin was elevated at 9 patient was admitted to the hospital with non-ST elevation CA, she was started on heparin drip she was given aspirin and she was admitted to the hospital for evaluation by by cardiology . 02/26: Patient is sitting up in bed in no apparent distress she denies any chest pain or shortness of breath, she is scheduled to go for left heart cathete rization today she has no abdominal pain, she has no evidence of any heart block or any congestive heart failure . 02/27: Echocardiogram reveals moderately to severely impaired EF of 30 - 35%. Patient is status post heart catheterization revealing heavily calcified coronary arteries with a critical stenosis in a long segment of the LAD for which the patient had angioplasty and stenting. Blood pressure 123/60, heart rate 60s, pulse ox 95% on room air. Sodium 138, potassium 3.7, BUN 17 and cre atinine 0.8. Patient denies any chest discomfort today, breathing is overall stable. In plan to continue her other medications. Patient will be monitored overnight and plan for discharge home tomorrow. Objective - Vital Signs Vital signs: Vital Signs Temp 97.8 F 02/27/19 08:00 Pulse 68 02/27/19 12:00 Resp 16 02/27/19 12:00 BP 133/77 02/27/19 12:00 Pulse Ox 93 L 02/27/19 12:00 Intake & Output 02/26/19 02/27/19 02/27/19 18:59 06:59 18:59 Intake Total 685 Balance 685 Weight 68.2 kg 69.2 kg Intake: IV 205 Oral 480 Other: Voiding Method Toilet # Voids 1 1 1 - Exam Review Of Systems: Constitutional: No fever, no chills, no night sweats. No weight change. No weakness, fatigue or lethargy. No daytime sleepiness. EENT: No headache. No blurred vision or double vision, no loss of vision. No loss of Hearing, no ringing in the ears, no dizziness. No nasal drainage or congestion. No epistaxis. No sore throat. Lungs: No shortness of breath, cough, no sputum production. No wheezing. Cardiovascular: No chest pain, no lower extremity edema. No palpitations. No paroxysmal nocturnal dyspnea. No orthopnea. No lightheadedness or dizziness. No syncopal episodes. Abdominal: No abdominal pain. No nausea, vomiting. No diarrhea. No constipation. No bloody or tarry stools. Genitourinary: No dysuria, increased frequency, urgency. No urinary retention. Musculoskeletal: No myalgias. No muscle weakness, no gait dysfunction, no frequent falls. No back pain. No neck pain. Integumentary: No wounds, no lesions. No rash or pruritus. No unusual bruising. No change in hair or nails. Neurologic: No aphasia. No facial droop. No change in mentation. No head injury. No headache. No paralysis. Psychiatric: No depression. No anxiety. Endocrine: No abnormal blood sugars. No weight change. - Constitutional General appearance: average body habitus, no acute distress, resting in bed - EENT Eyes: anicteric sclerae, EOMI, PERRLA, no ptosis, no scleral icterus, normal appearance ENT: hearing grossly normal, NA/AT, normal oropharynx, no thrush Ears: bilateral: normal - Neck Neck: no lymphadenopathy, normal ROM, no rigidity, no stridor, no thyromegaly Carotids: bilateral: upstroke normal Thyroid: bilateral: normal size - Respiratory Respiratory: bilateral: diminished, negative: dullness, rales, rhonchi, wheezing, prolonged expiration, prolonged inspiration - Cardiovascular Rhythm: regular Heart sounds: normal: S1, S2 Abnormal Heart Sounds: systolic murmur, no S3 Gallop, no S4 Gallop, no click - Gastrointestinal General gastrointestinal: normal bowel sounds, soft, no splenomegaly, no tenderness, no umbilical hernia, no ventral hernia - Integumentary Integumentary: normal, normal turgor - Neurologic Neurologic: CNII-XII intact - Musculoskeletal Musculoskeletal: gait normal, generalized weakness, strength equal bilaterally - Psychiatric Psychiatric: A&O x's 3, appropriate affect, intact judgment & insight - Labs CBC & Chem 7: 02/26/19 06:14 02/27/19 06:37 Assessment and Plan Plan: 1. Non-ST elevation CA. Status post heart catheterization and stenting of the LAD, continue Coreg 6.25 mg twice daily, continue aspirin 81 mg orally once every day, continue patient also on Lipitor 80 mg orally once every day, eliquis 5 mg twice daily, Plavix 75 mg daily 2. Status post recent left total hip arthroplasty. Doing much better. 3. Hypertension and hypertensive cardiovascular disease. Continue patient on Lopressor 12.5 mg orally twice every day, losartan 50 mg orally once every day. 4. Hyperlipidemia. Continue patient on Lipitor 80 mg orally once every day. 5. Paroxysmal atrial fibrillation. Hold Eliquis for now due to possible left heart catheterization, continue flecainide 50 mg orally twice every day, Lopressor 12.5 mg orally twice every day. 6. Hypothyroidism. Continue levothyroxine 75 g orally once every day. 7. GERD. Continue Pepcid 20 mg orally once every day. 8. DVT prophylaxis. Continue heparin drip. 9. GI prophylaxis. Continue Pepcid. Discharge plan: Home tomorrow Impression and plan of care have been directed as dictated by the signing physician. Cynthia Rahman nurse practitioner acting as scribe for signing physici an.
[2019-02-27] MEDS: CARVEDILOL 6.25 MG TAB PO SCH (17:22)
[2019-02-27 21:59] VITALS: RESP 18
[2019-02-28 05:05] VITALS: PULSE 75
[2019-02-28] MEDS: LEVOTHYROXINE 50 MCG TAB PO SCH (05:05)
[2019-02-28] MEDS: CARVEDILOL 6.25 MG TAB PO SCH ×2 (05:05→17:30)
[2019-02-28] MEDS ORDERED: INFLUENZA VACCINE (6 MOS+) 60 MCG/0.5 ML SYRINGE IM ONE (08:34)
[2019-02-28] MEDS: ASPIRIN 81 MG PO SCH (08:38)
[2019-02-28] MEDS: ATORVASTATIN 80 MG TAB PO SCH (08:38)
[2019-02-28] MEDS: CLOPIDOGREL 75 MG TAB PO SCH (08:38)
[2019-02-28] MEDS: FAMOTIDINE 20 MG TAB PO SCH (08:38)
[2019-02-28] MEDS: MULTIVITAMINS, THERA 1 EACH TAB PO SCH (08:38)
[2019-02-28] MEDS: LOSARTAN 50 MG TAB PO SCH (08:38)
[2019-02-28] MEDS: APIXABAN 5 MG TAB PO SCH (08:38)
[2019-02-28] MEDS: SPIRONOLACTONE 25 MG TAB PO SCH (08:39)
[2019-02-28 08:49] VITALS: BP 108/98; TEMP 97.2
--- NOTE | 2019-02-28 09:47 | P.PN ---
Subjective Progress Note Date: 02/28/19 This is an 79-year-old female admitted to the hospital with a non-ST elevation myocardial infarction. She has a known history of hypertension, hyperlipidemia, was taken to the cardiac catheterization lab and found to have heavily calcified coronary arteries with a critical stenosis in a long segment of the LAD for which the patient had angioplasty and stenting. Echocardiogram with Doppler study revealed moderately to severely impaired ejection fraction of 30-35%. Blood pressure 123/60 with a heart rate in the 60s, 95% on room air. Sodium 138, potassium 3.7, BUN 17 and creatinine 0.8. Patient denies any chest discomfort today, breathing is overall stable. 02/28/2019 Patient was seen and examined this morning, blood pressure 108/60 with a heart rate in the 70s. Breathing is stable, denies any chest discomfort. We did have a discussion with the patient this morning regarding the placement of a LifeVest for prevention of sudden cardiac . This will be ordered for the patient today, once that arrived she may be able to be discharged home from our perspective. Objective - Vital Signs Vital signs: Vital Signs Temp 97.2 F L 02/28/19 08:00 Pulse 75 02/28/19 08:00 Resp 18 02/28/19 08:00 BP 108/98 02/28/19 08:00 Pulse Ox 97 02/28/19 08:00 Intake & Output 02/27/19 02/28/19 02/28/19 18:59 06:59 18:59 Intake Total 480 240 Output Total 300 Balance 480 -60 Weight 69.2 kg Intake: Oral 480 240 Output: Urine 300 Other: Voiding Method Toilet Toilet # Voids 1 2 - Exam PHYSICAL EXAMINATION: GENERAL: 79-year-old female in no acute distress at the time of my examination HEENT: Head is atraumatic, normocephalic. Pupils equal, round. Sclera anicteric. Conjunctiva are clear. Mucous membranes of the mouth are moist. Neck is supple. There is no elevated jugular venous pressure. No carotid bruit is heard. HEART EXAMINATION: Heart S1 and S2 with systolic murmur is heard CHEST EXAMINATION: Lungs are clear to auscultation and precussion. No chest wall tenderness is noted on palpation or with deep breathing. ABDOMEN: Soft, nontender. Bowel sounds are heard. No organomegaly noted. EXTREMITIES: 2+ peripheral pulses with no evidence of peripheral edema and no calf tenderness noted. Right radial site clean and dry, good distal pulse NEUROLOGIC patient is awake, alert and oriented 3 . . - Labs CBC & Chem 7: 02/26/19 06:14 02/27/19 06:37 Assessment and Plan Plan: Assessment and plan #1 non-ST elevation myocardial infarction status post angioplasty and stenting of the LAD #2 hypertension #3 hyperlipidemia #4 ischemic cardiomyopathy with documented ejection fraction of 30-35% Plan Patient presented to the hospital with an acute myocardial infarction, underwent angioplasty and stenting of the LAD. Ejection fraction 30-35%. She was advised placement of a LifeVest for prevention of sudden cardiac which will be placed today. Following that the patient will be discharged home on current maximal medical therapy. Discharge medications include Eliquis 5 mg one tablet by mouth twice a day, aspirin 81 mg daily, Lipitor 80 mg daily, Coreg 6.25 mg one tablet by mouth twice a day, Plavix 75 mg daily, Synthroid, Cozaar 50 mg daily, Aldactone 25 mg daily and sublingual nitroglycerin as needed for chest pain. Patient will continue on triple therapy for one month, then the aspirin will be discontinued. Follow-up appointment in the office in one week. DNP note has been reviewed, I agree with a documented findings and plan of care. Patient was seen and examined.
--- NOTE | 2019-03-03 08:47 | P.DS ---
Providers Date of admission: 02/25/19 14:25 Expected date of discharge: 02/28/19 Attending physician: Shemar Shah Consults: 02/25/19 14:02 Consult Physician Urgent Consulting Provider: Ariel Leblanc Consult Reason/Comments: chest pain, elevated tropnins Do you want consulting provider notified?: Yes 02/26/19 12:31 Consult Physician Routine Consulting Provider: [facility] Consult Reason/Comments: Post Interventional patient Do you want consulting provider notified?: Already Contacted Primary care physician: Radha Khan MD Hospital Course: This is an 79-year-old female one of Dr. Khan with a previous medical history significant for hypertension and hypertensive cardiovascular disease, hyperlipidemia, osteoarthritis, hypothyroidism, recurrent UTI, history of TIA/CVA, patient underwent left total hip arthroplasty anterior approach about a month ago and she developed to have a 6 atrial fibrillation with rapid ventricular response postoperatively, she was seen in consultation by cardiology at that time, and the patient was started on Eliquis 5 mg orally twice every day along with flecainide twice every day, and the patient was sent home, patient presented to the emergency department at the [facility] today after she developed to have an increased indigestion on night and she was feeling hot and cold at the same time on Wednesday she felt extremely weak did not do anything about it, today she woke up in the morning and her pain was a little bit higher and went into the left short the left arm she took an aspirin 325 mg she felt a lot better and her Adalberto brought her into the ER by his car for evaluation EKG did not show evidence of acute ST elevation, however her troponin was elevated at 9 patient was admitted to the hospital with non-ST elevation TN, she was started on heparin drip she was given aspirin and she was admitted to the hospital for evaluation by by cardiology . 02/26: Patient is sitting up in bed in no apparent distress she denies any chest pain or shortness of breath, she is scheduled to go for left heart catheterization today she has no abdominal pain, she has no evidence of any heart block or any congestive heart failure . 02/27: Echocardiogram reveals moderately to severely impaired EF of 30 - 35%. Patient is status post heart catheterization revealing heavily calcified c oronary arteries with a critical stenosis in a long segment of the LAD for which the patient had angioplasty and stenting. Blood pressure 123/60, heart rate 60s, pulse ox 95% on room air. Sodium 138, potassium 3.7, BUN 17 and creatinine 0.8. Patient denies any chest discomfort today, breathing is overall stable. In plan to continue her other medications. Patient will be monitored overnight and plan for discharge home tomorrow. 02/28: Patient has been cleared by cardiology and discharge medications were reviewed with the cardiology DRIVER, Lexi Broderick. She states that a LifeVest will be obtained for the patient for discharge. Patient denies having any chest pain, shortness of breath, lightheadedness or dizziness. Patient will be discharged home today once LifeVest is obtained. Discharge diagnoses: 1. Non-ST elevation TN. Status post heart catheterization and stenting of the LAD 2. Status post recent left total hip arthroplasty. 3. Hypertension and hypertensive cardiovascular disease. 4. Hyperlipidemia. 5. Paroxysmal atrial fibrillation. 6. Hypothyroidism. 7. GERD. Discharge plan: Home Impression and plan of care have been directed as dictated by the signing physician. Cynthai Rahman nurse practitioner acting as scribe for signing physician. Patient Condition at Discharge: Good Plan - Discharge Summary Discharge Rx Participant: No New Discharge Prescriptions: New Spironolactone [Aldactone] 25 mg PO DAILY #30 tab Aspirin 81 mg PO DAILY #30 chew Apixaban [Eliquis] 5 mg PO BID tab Atorvastatin [Lipitor] 80 mg PO DAILY #30 tab Nitroglycerin Sl Tabs [Nitrostat] 0.4 mg SUBLINGUAL Q5M PRN #25 tab PRN Reason: Chest Pain Clopidogrel [Plavix] 75 mg PO DAILY #30 tab Carvedilol [Coreg] 6.25 mg PO BID-W/MEALS #60 tab Continue Levothyroxine Sodium [Synthroid] 50 mcg PO DAILY Famotidine [Pepcid] 20 mg PO DAILY tab Apixaban [Eliquis] 5 mg PO BID #60 tab Losartan Potassium 50 mg PO DAILY Multivitamins, Thera [Multivitamin (formulary)] 1 tab PO DAILY Discontinued Flecainide [Tambocor] 50 mg PO Q12HR #60 tab Simvastatin [Zocor] 40 mg PO HS Metoprolol Tartrate [Lopressor] 12.5 mg PO BID Discharge Medication List Levothyroxine Sodium [Synthroid] 50 mcg PO DAILY 12/21/18 [History] Apixaban [Eliquis] 5 mg PO BID #60 tab 01/20/19 [Rx] Famotidine [Pepcid] 20 mg PO DAILY tab 01/20/19 [Rx] Losartan Potassium 50 mg PO DAILY 02/25/19 [History] Multivitamins, Thera [Multivitamin (formulary)] 1 tab PO DAILY 02/25/19 [History] Apixaban [Eliquis] 5 mg PO BID tab 02/28/19 [Rx] Aspirin 81 mg PO DAILY #30 chew 02/28/19 [Rx] Atorvastatin [Lipitor] 80 mg PO DAILY #30 tab 02/28/19 [Rx] Carvedilol [Coreg] 6.25 mg PO BID-W/MEALS #60 tab 02/28/19 [Rx] Clopidogrel [Plavix] 75 mg PO DAILY #30 tab 02/28/19 [Rx] Nitroglycerin Sl Tabs [Nitrostat] 0.4 mg SUBLINGUAL Q5M PRN #25 tab 02/28/19 [Rx] Spironolactone [Aldactone] 25 mg PO DAILY #30 tab 02/28/19 [Rx] Follow up Appointment(s)/Referral(s): Radha Khan MD [Primary Care Provider] - 1 Week (Office to call you back with follow up appointment. ) Carlo Crawford MD [STAFF PHYSICIAN] - 1 Week (Office will call with follow up appointment. ) Patient Instructions/Handouts: Heart Healthy Diet (DC), Coronary Intravascular Stent Placement (DC) Discharge Disposition: HOME SELF-CARE
--- NOTE | 2019-03-06 00:48 | CDI ---
Documentation Clarification Form Date: 03/06/19 From: Amador Mae Phone: call [phone] Admit Date: 02/25/2019 2:25:00 PM Patient Name: Sabi James Visit Number: [id number] Discharge Date: 02/28/2019 8:22:00 PM ATTENTION: The Clinical Documentation Specialists (CDI) and [facility] Coding Staff appreciate your assistance in clarifying documentation. Please respond to the clarification below the line at the bottom and electronically sign. The CDI & [facility] Coding staff will review the response and follow-up if needed. Please note: Queries are made part of the Legal Health Record. If you have any questions, please contact the author of this message via ITS. Dr. Carlo Crawford, Documentation in the Operative Report included: History/Risk factors: Ischemic Cardiomyopathy , NSTEMI.hyperlipidemia, paroxysmal atrial fibrillation Pre-Operative Diagnosis: NSTEMI Postoperative Diagnosis: NSTEMI Treatment: PTCA with stents placement. In OP REPORT mentioned "3.5 x 15 mm Xience Becky stent was deployed proximal to the first stent and was dilated at 16 atmospheres.At that point, the balloon was removed and the and 1.5 x 8 mm Trek balloon was advanced and multiple inflations at distal segments were done at a maximum of 10 atmospheres.That balloon was removed and attempt to advance a 2.25 x 23 mm Xience Becky stent were unsuccessful.The stent was removed and a 2.0 x 18 mm Resolute [place] was advanced, deployed and was dilated at 18 atmospheres. After removing the balloon a 2.0 x 8 mm Resolute [place] was deployed distal to the last 1". Progress notes states 5 stents are placed. In order to capture the procedure, please specify How many stents are placed: 3 Drug eluting stents 4 Drug eluting stents xxxxx 5 Drug eluting stents MTDD
== END 2019-02-28 20:22 | disposition home or self-care (01) | DRG 246 ==
LOC: EC 11:55 → 3SCARD 14:25
PROVIDERS: ADMIT Internal Medicine; ATTEND Internal Medicine
PROC: 027037Z Dilation of Coronary Artery, One Artery with Four or More Drug-eluting Intraluminal Devices, Percutaneous Approach (ICD-10-PCS; principal; 2019-02-26 10:00)
PROC: 4A023N8 Measurement of Cardiac Sampling and Pressure, Bilateral, Percutaneous Approach (ICD-10-PCS; 2019-02-26 10:00)
PROC: B2111ZZ Fluoroscopy of Multiple Coronary Arteries using Low Osmolar Contrast (ICD-10-PCS; 2019-02-26 10:00)
DX: I21.4 Non-ST elevation (NSTEMI) myocardial infarction (principal); I25.5 Ischemic cardiomyopathy; E78.5 Hyperlipidemia, unspecified; M19.90 Unspecified osteoarthritis, unspecified site; I11.9 Hypertensive heart disease without heart failure; Z96.642 Presence of left artificial hip joint; F41.9 Anxiety disorder, unspecified; E03.9 Hypothyroidism, unspecified; K21.9 Gastro-esophageal reflux disease without esophagitis; I25.10 Atherosclerotic heart disease of native coronary artery without angina pectoris; I48.0 Paroxysmal atrial fibrillation; Z79.01 Long term (current) use of anticoagulants; Z87.440 Personal history of urinary (tract) infections; Z90.89 Acquired absence of other organs; Z82.61 Family history of arthritis; Z98.51 Tubal ligation status; Z98.42 Cataract extraction status, left eye; Z98.41 Cataract extraction status, right eye; Z98.890 Other specified postprocedural states; Z82.49 Family history of ischemic heart disease and other diseases of the circulatory system; Z79.899 Other long term (current) drug therapy; Z79.890 Hormone replacement therapy; Z88.2 Allergy status to sulfonamides; Z86.73 Personal history of transient ischemic attack (TIA), and cerebral infarction without residual deficits
CPT/HCPCS: 36415; 71046; 80048; 80053; 80061; 81001; 83735; 84484; 85025; 85347; 85610; 85730; 90686; 93005; 93306; 93458; 96365; 96376; 99285; C1874

== ENCOUNTER → 2019-05-15 | Outpatient (CLI) | payer MEDICARE ==
[2019-05-15 16:12] LABS: Albumin 4.3 g/dL (3.80-4.90); Albumin/Globulin Ratio 2.05 (1.60-3.17); Anion Gap 5.6 mmol/L (4.00-12.00); BUN/Creat Ratio 22.22 Ratio (12.00-20.00); Calcium 9.5 mg/dL (8.7-10.3); Carbon Dioxide 28.4 mmol/L (21.6-31.8); Chol/HDL Ratio 2.42; Globulin 2.1 g/dL (1.6-3.3); LDL Cholesterol,Calculated 65.4 mg/dL (0.0-131.0); Non-African American GFR(CKD) 60.4 (60.0-200.0); Potassium 4.6 mmol/L (3.5-5.5); Total Bilirubin 0.5 mg/dL (0.2-1.2); Total Protein 6.4 g/dL (6.2-8.2); VLDL Calculation 15.6 mg/dL (5.00-40.00)
== END | disposition home or self-care (01) ==
LOC: LABWHC1 09:45
PROVIDERS: ATTEND Internal Medicine Interventional Cardiology
DX: E78.2 Mixed hyperlipidemia (principal)
CPT/HCPCS: 36415; 80053; 80061

== ENCOUNTER → 2019-07-12 | Outpatient (CLI) | payer MEDICARE ==
--- NOTE | 2019-07-12 11:21 | US ---
EXAMINATION TYPE: US transvaginal DATE OF EXAM: 07/12/2019 COMPARISON: NONE CLINICAL HISTORY: N95.0 post scarlet bleeding. intermittent spotting for 1-2 weeks, tubal ligation TECHNIQUE: Transvaginal (TV). Date of LMP: unknown EXAM MEASUREMENTS: Uterus: 7.7 x 3.3 x 4.4 cm Endometrial Stripe: 0.8 cm Right Ovary: unable to visualize Left Ovary: unable to visualize 1. Uterus: Anteverted heterogeneous, calcifications noted 2. Endometrium: appears thickened 3. Right Ovary: Obscured by overlying bowel gas 4. Left Ovary: Obscured by overlying bowel gas 5. Bilateral Adnexa: appears wnl 6. Posterior cul-de-sac: wnl IMPRESSION: Abnormal endometrial thickening for a postmenopausal patient. Direct visualization is rec ommended in this patient with postmenopausal bleeding. Obscuration of the bilateral ovaries by overly ing bowel gas.
== END | disposition home or self-care (01) ==
LOC: RADUSWWP 10:47
PROVIDERS: ATTEND Obstetrics & Gynecology
DX: N95.0 Postmenopausal bleeding (principal)
CPT/HCPCS: 76830

== ENCOUNTER → 2019-10-06 | Outpatient (CLI) | payer MEDICARE | END | disposition home or self-care (01) | LOC: LABWHC1 09:05 | PROVIDERS: ATTEND Obstetrics & Gynecology | DX: Z11.59 Encounter for screening for other viral diseases (principal) ==

== ENCOUNTER → 2019-10-10 | Day surgery (SDC) | payer MEDICARE ==
[2019-10-09 10:16] VITALS: BMI 27.1
--- NOTE | 2019-10-09 18:04 | P.HPOB ---
History of Present Illness H&P Date: 10/09/19 Chief Complaint: Postmenopausal bleeding, endometrial thickening This is a 79 y.o. female, 5, para 3, who presents for dilatation and curettage with hysteroscopy due to postmenopausal bleeding and endometrial thickening. She noticed bright red bleeding about 2 months ago. She was seen and it was thought to be due to her pessary. She had a pelvic ultrasound that showed uterus measuring 7.7 x 3.3 x 4.4 cm with an endometrial thickness of 8 mm. Her bleeding has stopped. OB Hx: . History of 3 vaginal deliveries and 2 miscarriages. 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 Social Hx: Retired. Marries. Review of Systems Constitutional: Denies chills, Denies fever Eyes: denies blurred vision, denies pain Ears, nose, mouth and throat: Denies headache, Denies sore throat Cardiovascular: Denies chest pain, Denies shortness of breath Respiratory: Denies cough Gastrointestinal: Denies abdominal pain, Denies diarrhea, Denies nausea, Denies vomiting Genitourinary: Reports abnormal vaginal bleeding, Reports stress incontinence, Denies pelvic pain Musculoskeletal: Reports low back pain Integumentary: Denies pruritus, Denies rash Neurological: Denies numbness, Denies weakness Psychiatric: Denies anxiety, Denies depression Past Medical History Past Medical History: Atrial Fibrillation, Coronary Artery Disease (CAD), CVA/TIA, Hyperlipidemia, Hypertension, Osteoarthritis (OA), Thyroid Disorder Additional Past Medical History / Comment(s): chronic UTI's, TIA 2002-no effects, BLOOD FOUND ON PESSARY DURING OFFICE EXAM History of Any Multi-Drug Resistant Organisms: None Reported Past Surgical History: Heart Catheterization With Stent, Joint Replacement, Orth opedic Surgery, Tonsillectomy, Tubal Ligation Additional Past Surgical History / Comment(s): rt great toe surgery, mass removed from left great toe, elliot cataracts, left eye laser surgery, left hip replacement , 4 STENTS Past Anesthesia/Blood Transfusion Reactions: No Reported Reaction Date of Last Stent Placement:: 02/2020 Past Psychological History: No Psychological Hx Reported Smoking Status: Never smoker Past Alcohol Use History: None Reported Past Drug Use History: None Reported - Past Family History Mother Family Medical History: Coronary Artery Disease (CAD) Additional Family Medical History / Comment(s): Mother at age 82 from coronary artery disease and also had osteoarthritis. Father Family Medical History: Myocardial Infarction ([place]) Additional Family Medical History / Comment(s): Father at age 82 from a myocardial infarction. Sister(s) Family Medical History: No Reported History Additional Family Medical History / Comment(s): Patient has 1 sister with no major medical problems. Son(s) Family Medical History: No Reported History Additional Family Medical History / Comment(s): The patient has 2 sons with no major medical problems. Daughter(s) Family Medical History: No Reported History Additional Family Medical History / Comment(s): Patient has one daughter with no major medical problems. Medications and Allergies Home Medications Medication Instructions Recorded Confirmed Type Levothyroxine Sodium [Synthroid] 50 mcg PO DAILY 12/21/18 10/09/19 History Famotidine [Pepcid] 20 mg PO DAILY tab 01/20/19 10/09/19 Rx Aspirin 81 mg PO DAILY #30 chew 02/28/19 10/09/19 Rx Atorvastatin [Lipitor] 80 mg PO DAILY #30 tab 02/28/19 10/09/19 Rx Clopidogrel [Plavix] 75 mg PO DAILY #30 tab 02/28/19 10/09/19 Rx Nitroglycerin Sl Tabs [Nitrostat] 0.4 mg SUBLINGUAL Q5M PRN #25 tab 02/28/19 10/09/19 Rx Calcium/Magnesium/Zinc 1 each PO DAILY 10/09/19 10/09/19 History [Hugfakb-Ygupnrprw-Mycu Tablet] Carvedilol [Coreg] 12.5 mg PO BID-W/MEALS 10/09/19 10/09/19 History Losartan Potassium [Cozaar] 100 mg PO DAILY 10/09/19 10/10/19 History Allergies Allergy/AdvReac Type Severity Reaction Status Date / Time Sulfa (Sulfonamide Allergy Rash/Hives Verified 10/10/19 07:45 Antibiotics) Exam Osteopathic Statement: *. No significant issues noted on an osteopathic structural exam other than those noted in the History and Physical/Consult. Intake and Output 10/09/19 10/09/19 10/09/19 06:59 14:59 22:59 Other: Weight 69.4 kg HEENT: within normal limits Heart: regular rate and rhythm Lungs: clear to auscultation bilaterally Abdomen: soft, non-tender Pelvic: uterus mid-position with 2nd degree prolapse, grade 3 cystocele and rectocele. No adnexal masses or tenderness noted. Extremities: neg. Francy's. Assessment and Plan (1) Postmenopausal bleeding Current Visit: No Status: Acute Code(s): N95.0 - POSTMENOPAUSAL BLEEDING SNOMED Code(s): 03731138 (2) Endometrial thickening on ultrasound Current Visit: No Status: Acute Code(s): R93.89 - ABNORMAL FINDINGS ON DX IMAGING OF OTH BODY STRUCTURES SNOMED Code(s): 343223303 Plan: Proceed with dilatation and curettage with hysteroscopy. She did have cardiac clearance from Dr. Crawford. She stopped her Plavix 5 days prior to surgery and has continued her baby aspirin. I have discussed the risks, benefits, and alternative therapies for the above- mentioned procedure and for both sedation/anesthesia as well as necessary blood products administration, if indicated, as they pertain to this patient. The patient has indicated her understanding and acceptance of the risks and procedures discussed.
[~2019-10-10] MED LIST changes: -ACETAMINOPHEN TAB 500 MG TAB PO ONE; +LACTATED RINGERS 1,000 ML IV SCH; +LIDOCAINE 1% (10MG/ML) FOR IV START INTRADERMA PRN; -LIDOCAINE 1% 20 ML VIAL (10MG/ML) FOR IV START INTRADERMA PRN; +LIDOCAINE 1% INJ 10MG/ML (20 ML MDV) ONE; -MELOXICAM 7.5 MG TAB PO ONE; -MIDAZOLAM 2 MG/2 ML VIAL IV PRN; +PROPOFOL 10 MG/ML 20 ML VIAL IV ONE; +Pre Op ABX Message 1 EACH MISC MISCELLANE ONE; -SCOPOLAMINE 1.5MG/72HR PATCH TRANSDERM ONE; +SUCCINYLCHOLINE CHLORIDE 100 MG/5 ML SYR IV ONE; -TRANEXAMIC ACID 1,000 MG in SODIUM CHLORIDE 0.9% 100 ML IVPB ONE; +fentaNYL (PF) 50 MCG/ML 2 ML AMP ONE
--- NOTE | 2019-10-10 08:45 | P.OP ---
Date of Procedure: 10/10/19 Preoperative Diagnosis: Postmenopausal bleeding Endometrial thickening Postoperative Diagnosis: Same Procedure(s) Performed: Dilation and curettage with hysteroscopy Anesthesia: MICHELLE Surgeon: Chanell Munroe Estimated Blood Loss (ml): 5 Pathology: other (Endometrial curettings) Condition: stable Disposition: same day Indications for Procedure: This is a 79 y.o. female, 5, para 3, who presents for dilatation and curettage with hysteroscopy due to postmenopausal bleeding and endometrial thickening. She noticed bright red bleeding about 2 months ago. She was seen and it was thought to be due to her pessary. She had a pelvic ultrasound that showed uterus measuring 7.7 x 3.3 x 4.4 cm with an endometrial thickness of 8 mm. Her bleeding has stopped. Operative Findings: Complete uterine prolapse is noted with cystocele and rectocele noted. Uterus is sounded to 9-1/2 cm. Cervix is sounded to 3 cm. Upon hysteroscopy a polypoid type tissue is noted on the anterior fundal area. Both tubal ostia are visualized. Background endometrium appears atrophic. No adnexal masses are palpated. Minimal endometrial curettings are obtained. Description of Procedure: The patient is taken to the operating room where she is placed in the dorsal lithotomy position. She is prepped and draped in the normal sterile fashion. Her bladder is drained with a catheter. Her pessary is removed and she is again prepped after removal of the pessary. A weighted speculum was placed in the patient's vagina and a right angle retractor was used to visualize the cervix. The anterior lip of the cervix is grasped with a single-tooth tenaculum. The cervix is sounded to 3 cm. The uterus is sounded to 9-1/2 cm. Cervix is gently dilated with Murguia dilators until a hysteroscope could be passed. Hysteroscopy is performed using normal saline. The above noted findings are made and pictures are taken. Hysteroscope was withdrawn. The cervix is gently dilated further. Next a polyp forcep was introduced and a small polypoid tissue was obtained. Next the medium-size sharp curet was introduced and sharp curettage was performed with minimal further tissue obtained. Next the single-tooth tenaculum was removed. All instruments are removed. Specimen is removed from the field. No bleeding is noted. Her pessary is then cleaned in normal saline and replaced. All sponge and needle counts are correct and the patient is then taken to recovery room in stable condition.
[2019-10-10 08:57] VITALS: TEMP 98.2
[2019-10-10 09:05] VITALS: RESP 16
[2019-10-10 09:44] VITALS: BP 182/104
[2019-10-10 09:58] VITALS: PULSE 68
== END ==
LOC: OR 07:33
PROVIDERS: ATTEND Obstetrics & Gynecology
DX: N84.0 Polyp of corpus uteri (principal); N95.0 Postmenopausal bleeding; I25.10 Atherosclerotic heart disease of native coronary artery without angina pectoris; I10 Essential (primary) hypertension; I48.0 Paroxysmal atrial fibrillation; Z79.01 Long term (current) use of anticoagulants; E78.2 Mixed hyperlipidemia; E78.00 Pure hypercholesterolemia, unspecified; M19.90 Unspecified osteoarthritis, unspecified site; I25.5 Ischemic cardiomyopathy; E07.9 Disorder of thyroid, unspecified; Z82.49 Family history of ischemic heart disease and other diseases of the circulatory system; Z95.5 Presence of coronary angioplasty implant and graft; Z98.51 Tubal ligation status; Z98.890 Other specified postprocedural states; Z79.02 Long term (current) use of antithrombotics/antiplatelets; Z79.82 Long term (current) use of aspirin; Z79.890 Hormone replacement therapy; Z79.899 Other long term (current) drug therapy; Z88.2 Allergy status to sulfonamides
CPT/HCPCS: 58558; 88305; J2001; J3010; J0330; J2704; 93005

== ENCOUNTER → 2019-11-01 | Day surgery (SDC) | payer MEDICARE ==
[2019-10-27 14:55] VITALS: BMI 27.1
[~2019-11-01] MED LIST changes: -DEXAMETHASONE SOD PHOSPHATE 10 MG/ML 1 ML VIAL IV ONE; -HYDROmorphone 0.5 MG/0.5 ML SYRINGE IVP PRN; -LIDOCAINE 1% (10MG/ML) FOR IV START INTRADERMA PRN; -ONDANSETRON 4 MG/2 ML VIAL IVP ONE; -Pre Op ABX Message 1 EACH MISC MISCELLANE ONE; -SUCCINYLCHOLINE CHLORIDE 100 MG/5 ML SYR IV ONE; -fentaNYL (PF) 50 MCG/ML 2 ML AMP ONE
[2019-11-01 09:10] VITALS: RESP 16; TEMP 97.5
--- NOTE | 2019-11-01 09:57 | P.PCN ---
Date of Procedure: 11/01/19 Procedure(s) Performed: BRIEF HISTORY: Patient is a 79-year-old pleasant female scheduled for an elective colonoscopy as a part of evaluation of positive Cologuard PROCEDURE PERFORMED: Colonoscopy snare polypectomy. PREOPERATIVE DIAGNOSIS: Positive cologuard. IV sedation per Anesthesia. PROCEDURE: After informed consent was obtained, the patient, was brought into the endoscopy unit. IV sedation was administered by Anesthesia under continuous monitoring. Digital rectal examination was normal. Initially the Olympus CF-160 flexible video colonoscope was then inserted in the rectum, gradually advanced into the cecum without any difficulty. Careful examination was performed as the scope was gradually being withdrawn. Ileocecal valve and the appendiceal orifice were visualized and appeared normal. Prep was excellent. Mucosa of the cecum, ascending colon, appeared normal. The hepatic flexure there was a 1 cm broad- based polyp removed by snare polypectomy. Rest of the transverse colon, descending colon, sigmoid colon, and rectum appeared normal. scattered left- sided diverticulosis seen. Retroflexion was performed in the rectum and no lesions were seen. The patient tolerated the procedure well. IMPRESSION: 1 cm hepatic flexure polyp status post polypectomy Scattered left-sided diverticulosis. RECOMMENDATIONS: Findings of this examination were discussed with the patient as well as her family. She was advised to follow with the biopsy results. If the biopsy shows an adenoma she can have a repeat colonoscopy in 3 years.
[2019-11-01 10:19] VITALS: BP 150/80; PULSE 61
== END ==
LOC: ORWHC2ENDO 07:39
PROVIDERS: ATTEND Internal Medicine Gastroenterology
DX: D12.3 Benign neoplasm of transverse colon (principal); K57.30 Diverticulosis of large intestine without perforation or abscess without bleeding; I10 Essential (primary) hypertension; E78.5 Hyperlipidemia, unspecified; I25.10 Atherosclerotic heart disease of native coronary artery without angina pectoris; I48.91 Unspecified atrial fibrillation; Z88.2 Allergy status to sulfonamides; Z79.02 Long term (current) use of antithrombotics/antiplatelets; Z79.82 Long term (current) use of aspirin; Z79.899 Other long term (current) drug therapy
CPT/HCPCS: 88305; 45385; J2001; J2704

== ENCOUNTER → 2019-12-27 | Outpatient (CLI) | payer MEDICARE ==
[2019-12-27 09:58] LABS: Basophils # (A) 0.1 k/uL (0-0.2); Basophils % (A) 1 %; Eosinophils # (A) 0.2 k/uL (0-0.7); Eosinophils % (A) 3 %; HCT 36.2 % (34.0-46.0); HGB 11.3 gm/dL (11.4-16.0); Lymphocytes # (A) 1.2 k/uL (1.0-4.8); Lymphocytes % (A) 16 %; MCH 28.8 pg (25.0-35.0); MCHC 31.2 g/dL (31.0-37.0); MCV 92.2 fL (80.0-100.0); Monocytes # (A) 0.6 k/uL (0-1.0); Monocytes % (A) 8 %; Neutrophils % (A) 69 %; Platelet Count 289 k/uL (150-450); RBC 3.93 m/uL (3.80-5.40); RDW 13.7 % (11.5-15.5); WBC 7.3 k/uL (3.8-10.6)
[2019-12-27 18:10] LABS: Albumin 4.1 g/dL (3.80-4.90); Albumin/Globulin Ratio 1.78 (1.60-3.17); Anion Gap 7.7 mmol/L (4.00-12.00); BUN/Creat Ratio 24.44 Ratio (12.00-20.00); Calcium 9.1 mg/dL (8.7-10.3); Carbon Dioxide 26.3 mmol/L (21.6-31.8); Chol/HDL Ratio 2.22; Globulin 2.3 g/dL (1.6-3.3); LDL Cholesterol,Calculated 56.8 mg/dL (0.0-131.0); Non-African American GFR(CKD) 60.4 (60.0-200.0); Potassium 4.3 mmol/L (3.5-5.5); Total Bilirubin 0.7 mg/dL (0.2-1.2); Total Protein 6.4 g/dL (6.2-8.2); VLDL Calculation 14.2 mg/dL (5.00-40.00)
== END | disposition home or self-care (01) ==
LOC: LABWHC1 08:43
PROVIDERS: ATTEND Internal Medicine
DX: I10 Essential (primary) hypertension (principal); E78.2 Mixed hyperlipidemia; E03.9 Hypothyroidism, unspecified
CPT/HCPCS: 36415; 80053; 80061; 84443; 85025

== ENCOUNTER → 2020-02-21 | Outpatient (CLI) | payer MEDICARE ==
--- NOTE | 2020-02-22 20:29 | BD ---
EXAMINATION TYPE: Axial Bone Density DATE OF EXAM: 02/21/2020 COMPARISON: 07.03.2014 CLINICAL HISTORY: 80 YR OLD FEMALE.....ICD-10 CODE: M89.9 DISORDER OF BONE Height: 60.5 Weight: 153 FRAX RISK QUESTIONS: NOTHING TO NOTE HERE RISK FACTORS HISTORY OF: Surgery to LT HIP THR, AT 79 YRS OLD Postmenopausal woman: YES, AT 50 Lost more than 2 inches in height since high school: YES Frequent falls: UNSTEADY Poor Health: ELDERLY Hyperparathyroidism: NO Adrenal Insufficiency: NO MEDICATIONS: Thyroid Medications: YES, SYNTHROID FOR ABOUT 10+ YRS Additional Medications: BP MEDS, LIPITOR, CALCIUM AND VIT D Additional History: CHOLESTEROL, HYPERTENSION EXAM MEASUREMENTS: Bone mineral densitometry was performed using the [employer] System. Bone mineral density as measured about the Lumbar spine is: ----- L1-L4(G/cm2): 1.715 T Score Values are as follows: ----- L1: 1.5 ----- L2: 2.5 ----- L3: 5.8 ----- L4: 6.1 ----- L1-L4: 4.5 Bone mineral density has: Increased 21.0% since study of: 07.03.2014 Bone mineral density about the R hip (g/cm2): 0.824 T Score values are as follows: -----R Neck: -1.1 -----R Total: -1.5 Bone mineral density has: Decreased -2.0% since study of: 07.03.2014 FRAX%s: THERE IS A 11.8% CHANCE FOR A MAJOR OSTEOPOROTIC FX AND A 2.5% FOR HIP.....PROBABILITY FOR FX IN 10 YRS TIME IMPRESSION: Osteopenia (T Score between -2.5 and -1). There is slightly increased risk of fracture and the patient may be considered for treatment. Re-Screen 2-5 years. NOTE: T-SCORE=SD OF THE YOUNG ADULT MEAN.
== END | disposition home or self-care (01) ==
LOC: RADBDWWP 10:26
PROVIDERS: ATTEND Obstetrics & Gynecology
DX: M85.80 Other specified disorders of bone density and structure, unspecified site (principal); M89.9 Disorder of bone, unspecified
CPT/HCPCS: 77080

== ENCOUNTER → 2020-05-09 | Outpatient (CLI) | payer MEDICARE ==
[2020-05-09 09:54] LABS: Basophils # (A) 0.1 k/uL (0-0.2); Basophils % (A) 1 %; Eosinophils # (A) 0.2 k/uL (0-0.7); Eosinophils % (A) 2 %; HCT 35.3 % (34.0-46.0); HGB 11.6 gm/dL (11.4-16.0); Lymphocytes # (A) 0.9 k/uL (1.0-4.8); Lymphocytes % (A) 12 %; MCH 29.5 pg (25.0-35.0); MCHC 32.7 g/dL (31.0-37.0); MCV 90.3 fL (80.0-100.0); Mean Platelet Volume 6.8; Monocytes # (A) 0.5 k/uL (0-1.0); Monocytes % (A) 7 %; Neutrophils # (A) 5.7 k/uL (1.3-7.7); Neutrophils % (A) 76 %; Platelet Count 277 k/uL (150-450); RBC 3.91 m/uL (3.80-5.40); RDW 13.9 % (11.5-15.5); WBC 7.6 k/uL (3.8-10.6)
[2020-05-09 21:15] LABS: African American GFR (CKD) 69.5 (60.0-200.0); Albumin 4.3 g/dL (3.80-4.90); Albumin/Globulin Ratio 1.95 (1.60-3.17); Anion Gap 5.6 mmol/L (4.00-12.00); BUN/Creat Ratio 25.56 Ratio (12.00-20.00); Calcium 9.4 mg/dL (8.7-10.3); Carbon Dioxide 29.4 mmol/L (21.6-31.8); Chol/HDL Ratio 2.38; Globulin 2.2 g/dL (1.6-3.3); LDL Cholesterol,Calculated 61.6 mg/dL (0.0-131.0); Potassium 4.3 mmol/L (3.5-5.5); Total Bilirubin 0.7 mg/dL (0.3-1.2); Total Protein 6.5 g/dL (6.2-8.2); VLDL Calculation 18.4 mg/dL (5.00-40.00)
== END | disposition home or self-care (01) ==
LOC: LABWHC1 09:04
PROVIDERS: ATTEND Internal Medicine
DX: I10 Essential (primary) hypertension (principal); E78.2 Mixed hyperlipidemia; E03.9 Hypothyroidism, unspecified
CPT/HCPCS: 36415; 80053; 80061; 84443; 85025

== ENCOUNTER → 2020-07-01 | Outpatient (CLI) | payer MEDICARE ==
--- NOTE | 2020-07-01 18:25 | CT ---
EXAMINATION TYPE: CT brain lennoxine wo con DATE OF EXAM: 07/01/2020 COMPARISON: 07/04/2010. HISTORY: syncope, fall CT DLP: 1500.4 mGycm Automated exposure control for dose reduction was used. TECHNIQUE: CT scan of the head and cervical spine are performed without contrast. FINDINGS: There is no acute intracranial hemorrhage, mass effect, or midline shift identified. Ther e is moderate white matter disease or parenchymal volume loss.. The globes are intact and the visual ized sinuses are clear. Cervical spine is visualized in its entirety from C1 through upper thoracic levels and demonstrates s atisfactory alignment without evidence of acute fracture or dislocation. Prevertebral soft tissue ap pears within normal limits. The C1-C2 articulation is unremarkable. There is severe C5-C7 spondylos is and mild to moderate elsewhere. IMPRESSION: 1. There is no acute fracture or dislocation evident in the cervical spine. 2. No acute intracranial hemorrhage, mass effect, or midline shift is seen.
[2020-07-01 18:41] LABS: HCT 33.7 % (34.0-46.0); HGB 11.6 gm/dL (11.4-16.0); MCH 30.5 pg (25.0-35.0); MCHC 34.4 g/dL (31.0-37.0); MCV 88.9 fL (80.0-100.0); Mean Platelet Volume 7.1; Platelet Count 266 k/uL (150-450); RBC 3.79 m/uL (3.80-5.40); RDW 14.2 % (11.5-15.5); WBC 8.1 k/uL (3.8-10.6)
[2020-07-01 19:15] LABS: D-Dimer 0.32 mg/L FEU (<0.60); INR 1.1 (<1.2); Prothrombin Time 11.5 sec (9.0-12.0)
== END | disposition home or self-care (01) ==
LOC: RADCTMAIN 17:29
PROVIDERS: ATTEND Internal Medicine
DX: R55 Syncope and collapse (principal); E03.9 Hypothyroidism, unspecified
CPT/HCPCS: 70450; 72125; 84443; 85027; 85379; 85610

== ENCOUNTER 2020-09-03 11:15 | Emergency (ER) | payer MEDICARE ==
[2020-09-03] MEDS ORDERED: SODIUM CHLORIDE 0.9% 1,000 ML IV STA (11:24)
[2020-09-03] MEDS ORDERED: ONDANSETRON 4 MG/2 ML VIAL IVP STA (11:24)
[2020-09-03 11:26] VITALS: TEMP 97.6
--- NOTE | 2020-09-03 11:28 | ED ---
Weakness HPI - General Stated complaint: Weakness Time Seen by Provider: 09/03/20 11:17 Source: patient, RN notes reviewed Mode of arrival: EMS Limitations: no limitations - History of Present Illness Initial comments: Patient is an 80-year-old female that presents the emergency room via EMS for generalized weakness and fall out of chair. She notes that symptoms started last night she went by woke up this morning stood up, felt off. She noted that she was sitting in her chair when she fell out she slipped off the ground denied any injury or trauma. She denied any loss consciousness or head trauma. She states that she did give both of her Covid shots back in July. She was well- appearing, well-hydrated in no apparent distress or pain while sitting up in bed during the exam and interview. He did note that before she fell she had one bout of nausea with very minimal vomiting. She denied any chest pain shortness of breath headache constipation fever fatigue chills. - Related Data Home Medications Medication Instructions Recorded Confirmed Levothyroxine Sodium [Synthroid] 50 mcg PO DAILY 12/21/18 09/03/20 Losartan Potassium [Cozaar] 100 mg PO DAILY 10/09/19 09/03/20 carvediloL [Coreg] 12.5 mg PO BID 10/09/19 09/03/20 Apixaban [Eliquis] 5 mg PO BID 09/03/20 09/03/20 Calcium Carbonate [Calcium] 600 mg PO DAILY 09/03/20 09/03/20 Cyanocobalamin (Vitamin B-12) 1,000 mcg PO DAILY 09/03/20 09/03/20 [Vitamin B-12] Previous Rx's Medication Instructions Recorded Aspirin 81 mg PO DAILY #30 chew 02/28/19 Atorvastatin [Lipitor] 80 mg PO DAILY #30 tab 02/28/19 Nitroglycerin Sl Tabs [Nitrostat] 0.4 mg SUBLINGUAL Q5M PRN #25 tab 02/28/19 Allergies Allergy/AdvReac Type Severity Reaction Status Date / Time Sulfa (Sulfonamide Allergy Rash/Hives Verified 09/03/20 13:12 Antibiotics) Review of Systems ROS Statement: Those systems with pertinent positive or pertinent negative responses have been documented in the HPI. ROS Other: All systems not noted in ROS Statement are negative. Past Medical History Past Medical History: Atrial Fibrillation, Coronary Artery Disease (CAD), CVA/TIA, GERD/Reflux, Hyperlipidemia, Hypertension, Myocardial Infarction ([place]), Osteoarthritis (OA), Thyroid Disorder Additional Past Medical History / Comment(s): chronic UTI's, TIA 2002-no effects, rectal bleeding, anemia, Last Myocardial Infarction Date:: 02/2019 History of Any Multi-Drug Resistant Organisms: None Reported Past Surgical History: Heart Catheterization With Stent, Joint Replacement, Orthopedic Surgery, Tonsillectomy, Tubal Ligation Additional Past Surgical History / Comment(s): rt great toe surgery, mass removed from left great toe, elliot cataracts, left eye laser surgery, left hip replacement , 4 cardiac STENTS, D&C Past Anesthesia/Blood Transfusion Reactions: Previous Problems w/ Anesthesia, Motion Sickness Additional Past Anesthesia/Blood Transfusion Reaction / Comment(s): gets dizzy with motion, "hard time waking up" Date of Last Stent Placement:: 02/2019 Past Psychological History: No Psychological Hx Reported Past Alcohol Use History: Rare Past Drug Use History: None Reported - Past Family History Mother Family Medical History: No Reported History Additional Family Medical History / Comment(s): . Father Family Medical History: Myocardial Infarction ([place]) Additional Family Medical History / Comment(s): Father at age 82 from a myocardial infarction. Sister(s) Family Medical History: No Reported History Additional Family Medical History / Comment(s): Patient has 1 sister with no major medical problems. Son(s) Family Medical History: No Reported History Additional Family Medical History / Comment(s): The patient has 2 sons with no major medical problems. Daughter(s) Family Medical History: No Reported History Additional Family Medical History / Comment(s): Patient has one daughter with no major medical problems. General Exam General appearance: alert, in no apparent distress Head exam: Present: atraumatic, normocephalic, normal inspection Eye exam: Present: normal appearance, PERRL, EOMI. Absent: scleral icterus, conjunctival injection, periorbital swelling Neck exam: Present: normal inspection. Absent: tenderness, meningismus, lymphadenopathy Respiratory exam: Present: normal lung sounds bilaterally. Absent: respiratory distress, wheezes, rales, rhonchi, stridor Cardiovascular Exam: Present: regular rate, normal rhythm, normal heart sounds. Absent: systolic murmur, diastolic murmur, rubs, gallop, clicks GI/Abdominal exam: Present: soft, normal bowel sounds. Absent: distended, tenderness, guarding, rebound, rigid Extremities exam: Present: normal inspection, full ROM, normal capillary refill. Absent: tenderness, pedal edema, joint swelling, calf tenderness Neurological exam: Present: alert, oriented X3, CN II-XII intact Expanded Patient oriented to: Present: person, place, time Speech: Present: fluid speech Cranial nerves: EOM's Intact: Normal, Nystagmus: Normal Cerebellar function: Finger to Nose: Normal Motor strength exam: RUE: 5, LUE: 5, RLE: 5, LLE: 5 Eye Response: (4) open spontaneously Motor Response: (6) obeys commands Verbal Response: (5) oriented Psychiatric exam: Present: normal affect, normal mood Skin exam: Present: warm, dry, intact, normal color. Absent: rash Course Vital Signs 09/03/20 11:22 Temperature 97.6 F Pulse Rate 68 Respiratory 18 Rate Blood Pressure 155/92 O2 Sat by Pulse 97 Oximetry Medical Decision Making - Medical Decision Making 80-year-old female complaining of weakness with one bout of nausea and vomiting and a fall out of chair. Labs, 1 L normal saline, 4 mg Zofran, EKG, chest x-ray ordered. Chest x-ray no acute pulmonary process, chronic changes and cardiomegaly noted. - Lab Data Result diagrams: 09/03/20 13:21 09/03/20 13:21 Lab Results 09/03/20 09/03/20 09/03/20 Range/Units 13:21 13:21 13:21 WBC 13.9 H (3.8-10.6) k/uL RBC 3.98 (3.80-5.40) m/uL Hgb 11.8 (11.4-16.0) gm/dL Hct 34.8 (34.0-46.0) % MCV 87.3 (80.0-100.0) fL MCH 29.5 (25.0-35.0) pg MCHC 33.8 (31.0-37.0) g/dL RDW 13.8 (11.5-15.5) % Plt Count 266 (150-450) k/uL MPV 7.1 Neutrophils % 89 % Lymphocytes % 5 % Monocytes % 5 % Eosinophils % 1 % Basophils % 0 % Neutrophils # 12.4 H (1.3-7.7) k/uL Lymphocytes # 0.7 L (1.0-4.8) k/uL Monocytes # 0.7 (0-1.0) k/uL Eosinophils # 0.1 (0-0.7) k/uL Basophils # 0.0 (0-0.2) k/uL PT 11.1 (9.0-12.0) sec INR 1.0 (<1.2) APTT 28.8 (22.0-30.0) sec Sodium 137 (137-145) mmol/L Potassium 3.9 (3.5-5.1) mmol/L Chloride 105 (98-107) mmol/L Carbon Dioxide 25 (22-30) mmol/L Anion Gap 7 mmol/L BUN 20 H (7-17) mg/dL Creatinine 0.81 (0.52-1.04) mg/dL Est GFR (CKD-EPI)AfAm 79 (>60 ml/min/1.73 sqM) Est GFR (CKD-EPI)NonAf 69 (>60 ml/min/1.73 sqM) Glucose 135 H (74-99) mg/dL Plasma Lactic Acid Tucker (0.7-2.0) mmol/L Calcium 9.4 (8.4-10.2) mg/dL Total Bilirubin 1.0 (0.2-1.3) mg/dL AST 27 (14-36) U/L ALT 18 (4-34) U/L Alkaline Phosphatase 137 H (38-126) U/L Total Protein 7.0 (6.3-8.2) g/dL Albumin 4.1 (3.5-5.0) g/dL 09/03/20 Range/Units 13:21 WBC (3.8-10.6) k/uL RBC (3.80-5.40) m/uL Hgb (11.4-16.0) gm/dL Hct (34.0-46.0) % MCV (80.0-100.0) fL MCH (25.0-35.0) pg MCHC (31.0-37.0) g/dL RDW (11.5-15.5) % Plt Count (150-450) k/uL MPV Neutrophils % % Lymphocytes % % Monocytes % % Eosinophils % % Basophils % % Neutrophils # (1.3-7.7) k/uL Lymphocytes # (1.0-4.8) k/uL Monocytes # (0-1.0) k/uL Eosinophils # (0-0.7) k/uL Basophils # (0-0.2) k/uL PT (9.0-12.0) sec INR (<1.2) APTT (22.0-30.0) sec Sodium (137-145) mmol/L Potassium (3.5-5.1) mmol/L Chloride (98-107) mmol/L Carbon Dioxide (22-30) mmol/L Anion Gap mmol/L BUN (7-17) mg/dL Creatinine (0.52-1.04) mg/dL Est GFR (CKD-EPI)AfAm (>60 ml/min/1.73 sqM) Est GFR (CKD-EPI)NonAf (>60 ml/min/1.73 sqM) Glucose (74-99) mg/dL Plasma Lactic Acid Tucekr 0.9 (0.7-2.0) mmol/L Calcium (8.4-10.2) mg/dL Total Bilirubin (0.2-1.3) mg/dL AST (14-36) U/L ALT (4-34) U/L Alkaline Phosphatase (38-126) U/L Total Protein (6.3-8.2) g/dL Albumin (3.5-5.0) g/dL - EKG Data -: EKG Interpreted by Co EKG shows normal: sinus rhythm EKG Comments: vent rate 70 bpm, CA interval 286, QRS 94, QT/QTc 412/444, P-R-T 76/-55/84 sinus rhythm, with marked sinus arrhythmia, left axis deviation, Nonspecific T wave abnormality, abnormal ECG - Radiology Data Radiology results: report reviewed, image reviewed Chest x-ray: Chronic changes and cardiomegaly without new acute pulmonary process Disposition Clinical Impression: Urinary tract infection, Weakness Disposition: HOME SELF-CARE Condition: Stable Instructions (If sedation given, give patient instructions): Urinary Tract Infection in Women (ED) Additional Instructions: please return the ER if symptoms persist or worsen. follow up with primary care in 2-4 days, drink plenty of fluids. Is patient prescribed a controlled substance at d/c from ED?: No Referrals: Radha Khan MD [Primary Care Provider] - 1-2 days Time of Disposition: 14:41
--- NOTE | 2020-09-03 12:45 | XR ---
EXAMINATION TYPE: XR chest 2V DATE OF EXAM: 09/03/2020 COMPARISON: Chest x-ray February 25, 2019. CTA chest January 18, 2019. HISTORY: Overall weakness. TECHNIQUE: Frontal and lateral views of the chest are obtained. FINDINGS: There is chronic parenchymal changes bilaterally without suspicious new focal air space op acity, pleural effusion, or pneumothorax seen. The cardiac silhouette size remains mildly enlarged w ith atherosclerotic aorta. Underlying scoliosis is present. Multilevel spurring in the spine. Possibl e intra-articular loose body left shoulder region. IMPRESSION: Chronic changes and cardiomegaly without new acute pulmonary process.
[2020-09-03 13:32] LABS: Basophils % (A) 0 %; Eosinophils # (A) 0.1 k/uL (0-0.7); Eosinophils % (A) 1 %; HCT 34.8 % (34.0-46.0); HGB 11.8 gm/dL (11.4-16.0); Lymphocytes # (A) 0.7 k/uL (1.0-4.8); Lymphocytes % (A) 5 %; MCH 29.5 pg (25.0-35.0); MCHC 33.8 g/dL (31.0-37.0); MCV 87.3 fL (80.0-100.0); Mean Platelet Volume 7.1; Monocytes # (A) 0.7 k/uL (0-1.0); Monocytes % (A) 5 %; Neutrophils # (A) 12.4 k/uL (1.3-7.7); Neutrophils % (A) 89 %; Platelet Count 266 k/uL (150-450); RBC 3.98 m/uL (3.80-5.40); RDW 13.8 % (11.5-15.5); WBC 13.9 k/uL (3.8-10.6)
[2020-09-03 13:41] LABS: Albumin 4.1 g/dL (3.5-5.0); Calcium 9.4 mg/dL (8.4-10.2); Potassium 3.9 mmol/L (3.5-5.1)
[2020-09-03 13:46] LABS: Partial Thromboplastin Time 28.8 sec (22.0-30.0); Prothrombin Time 11.1 sec (9.0-12.0)
[2020-09-03 14:23] LABS: Appearance,Urine Clear (Clear); Bacteria,Urine Few /hpf; Bilirubin,Urine Negative (Negative); Blood,Urine Moderate (Negative); Color,Urine Colorless; Glucose,Urine (UA) Negative (Negative); Ketones,Urine Trace (Negative); Leukocyte Esterase,Urine Moderate (Negative); Mucus,Urine Rare /hpf; Nitrite,Urine Positive (Negative); PH, Urine 7.5 (5.0-8.0); Protein,Urine Trace (Negative); RBC,Urine <1 /hpf (0-5); Specific Gravity,Urine 1.008 (1.001-1.035); Squamous Epithelial Cell,Urine <1 /hpf (0-4); Urobilinogen,Urine <2.0 mg/dL (<2.0); WBC,Urine 2 /hpf (0-5)
[2020-09-03] MEDS ORDERED: cefTRIAXone IN SWFI 1,000 MG/10 ML SYRINGE IVP STA (14:39)
[2020-09-03 15:12] VITALS: BP 169/80; PULSE 76; RESP 16
== END 2020-09-03 15:12 | disposition home or self-care (01) ==
LOC: EC 11:15
DX: N39.0 Urinary tract infection, site not specified (principal); R53.1 Weakness; E78.5 Hyperlipidemia, unspecified; I10 Essential (primary) hypertension; I25.10 Atherosclerotic heart disease of native coronary artery without angina pectoris; I25.2 Old myocardial infarction; I48.91 Unspecified atrial fibrillation; K21.9 Gastro-esophageal reflux disease without esophagitis; M19.90 Unspecified osteoarthritis, unspecified site; W07.XXXA Fall from chair, initial encounter; Z86.73 Personal history of transient ischemic attack (TIA), and cerebral infarction without residual deficits; Z95.5 Presence of coronary angioplasty implant and graft; Z90.09 Acquired absence of other part of head and neck; Z98.51 Tubal ligation status
CPT/HCPCS: 36415; 93005; 80053; 83605; 84484; 85025; 85610; 85730; 81001; 71046; 99285; 96374; 96361; J0696

== ENCOUNTER → 2021-05-29 | Outpatient (CLI) | payer MEDICARE ==
--- NOTE | 2021-05-29 16:30 | BD ---
EXAMINATION TYPE: Axial Bone Density DATE OF EXAM: 05/29/2021 COMPARISON: NONE CLINICAL HISTORY: Height: 62 Weight: 156.4 FRAX RISK QUESTIONS: Alcohol (3 or more units per day): no Family History (Parent hip fracture): no Glucocorticoids (More than 3mos): no (Ex: prednisone, prednisolone, methylprednisolone, dexamethasone, and hydrocortisone). History of Fracture in Adulthood: no Secondary Osteoporosis: 1. Type 1 Diabetes: no 2. Hyperthyroidism: no 3. Menopause before 45: no 4. Malnutrition: no 5. Chronic liver disease: no Rheumatoid Arthritis: no Current Tobacco Use: no RISK FACTORS HISTORY OF: Surgery to Spine/Hip(right/left)/Wrist (right/left): lt hip When: age 79 Family History of Osteoporosis: no Active: no Diet low in dairy products/other sources of calcium: no Postmenopausal woman: yes Lost more than 2 inches in height since high school: yes MEDICATIONS: BP MEDS, LIPITOR, CALCIUM AND VIT D CHOLESTEROL, HYPERTENSION Thyroid Medications: synthroid How Lon years Additional History: EXAM MEASUREMENTS: Bone mineral densitometry was performed using the [employer] System. Bone mineral density as measured about the Lumbar spine is: ----- L1-L4(G/cm2): 1.515 T Score Values are as follows: ----- L2: 2.8 ----- L3: 4.1 ----- L4: 3.8 ----- L1-L4: 2.8 Bone mineral density has: decreased -9.8 % since study of: 02.21.2020 Bone mineral density about the R hip (g/cm2): 0.839 T Score values are as follows: -----R Neck: -1.4 -----R Total: -1.6 Bone mineral density has: decreased -2.2 % since study of: 02.21.2020 IMPRESSION: Osteopenia (T Score between -2.5 and -1). There is slightly increased risk of fracture and the patient may be considered for treatment. Re-Screen 2-5 years. NOTE: T-SCORE=SD OF THE YOUNG ADULT MEAN.
== END | disposition home or self-care (01) ==
LOC: RADBDWWP 09:45
PROVIDERS: ATTEND Internal Medicine
DX: M85.88 Other specified disorders of bone density and structure, other site (principal); Z78.0 Asymptomatic menopausal state
CPT/HCPCS: 77080

== ENCOUNTER 2021-08-11 10:11 | Emergency (ER) | payer MEDICARE ==
[2021-08-11] MEDS ORDERED: SODIUM CHLORIDE 0.9% 1,000 ML IV ONE (10:16)
[2021-08-11 10:17] VITALS: TEMP 97.3
[2021-08-11 10:17] LABS: Glucose,Whole Blood 133 mg/dL (75-99)
--- NOTE | 2021-08-11 10:28 | ED ---
General Adult HPI - General Chief complaint: Altered Mental Status Stated complaint: unresponsive Time Seen by Provider: 08/11/21 10:11 Source: EMS, RN notes reviewed, old records reviewed Mode of arrival: EMS Limitations: altered mental status, physical limitation - History of Present Illness Initial comments: This is an 81-year-old female presents emergency Department with the complaint of unresponsiveness. According to EMS states the patient was fine last night at 2200 hrs. she went to bed and all night long he heard snoring respirations but when he woke up today she was unresponsive and he was unable to get her awake so he called EMS. EMS states her oxygenation was in the 70s with a tried to intubate her were unsuccessful so they placed a supraglottic airway. Per EMS patient will pressure was good in route to the hospital. No further history is available this time. - Related Data Home Medications Medication Instructions Recorded Confirmed Levothyroxine Sodium [Synthroid] 50 mcg PO DAILY 12/21/18 08/11/21 carvediloL [Coreg] 6.25 mg PO BID 10/09/19 08/11/21 Apixaban [Eliquis] 5 mg PO BID 09/03/20 08/11/21 Cyanocobalamin (Vitamin B-12) 1,000 mcg PO HS 09/03/20 08/11/21 [Vitamin B-12] Aspirin 81 mg PO HS 08/11/21 08/11/21 Calcium Carbonate/Vitamin D3 1 tab PO DAILY 08/11/21 08/11/21 [Calcium 600 mg-Vit D3 10 mcg (400 Unit)] Famotidine [Pepcid AC] 10 mg PO BID PRN 08/11/21 08/11/21 Losartan Potassium 50 mg PO HS 08/11/21 08/11/21 Mirabegron [Myrbetriq] 25 mg PO DAILY 08/11/21 08/11/21 Previous Rx's Medication Instructions Recorded Atorvastatin [Lipitor] 80 mg PO DAILY #30 tab 02/28/19 Nitroglycerin Sl Tabs [Nitrostat] 0.4 mg SUBLINGUAL Q5M PRN #25 tab 02/28/19 Allergies Allergy/AdvReac Type Severity Reaction Status Date / Time Sulfa (Sulfonamide Allergy Rash/Hives Verified 08/11/21 10:44 Antibiotics) Review of Systems ROS Statement: Those systems with pertinent positive or pertinent negative responses have been documented in the HPI. ROS Other: All systems not noted in ROS Statement are negative. Past Medical History Past Medical History: Atrial Fibrillation, Coronary Artery Disease (CAD), CVA/TIA, GERD/Reflux, Hyperlipidemia, Hypertension, Myocardial Infarction (OK), Osteoarthritis (OA), Thyroid Disorder Additional Past Medical History / Comment(s): chronic UTI's, TIA 2002-no effects, rectal bleeding, anemia, Last Myocardial Infarction Date:: 02/2019 History of Any Multi-Drug Resistant Organisms: None Reported Past Surgical History: Heart Catheterization With Stent, Joint Replacement, Orthopedic Surgery, Tonsillectomy, Tubal Ligation Additional Past Surgical History / Comment(s): rt great toe surgery, mass removed from left great toe, elliot cataracts, left eye laser surgery, left hip replacement , 4 cardiac STENTS, D&C Past Anesthesia/Blood Transfusion Reactions: Previous Problems w/ Anesthesia, Motion Sickness Additional Past Anesthesia/Blood Transfusion Reaction / Comment(s): gets dizzy with motion, "hard time waking up" Date of Last Stent Placement:: 02/2019 Past Psychological History: No Psychological Hx Reported Past Alcohol Use History: Rare Past Drug Use History: None Reported - Past Family History Mother Family Medical History: No Reported History Additional Family Medical History / Comment(s): . Father Family Medical History: Myocardial Infarction (OK) Additional Family Medical History / Comment(s): Father at age 82 from a myocardial infarction. Sister(s) Family Medical History: No Reported History Additional Family Medical History / Comment(s): Patient has 1 sister with no major medical problems. Son(s) Family Medical History: No Reported History Additional Family Medical History / Comment(s): The patient has 2 sons with no major medical problems. Daughter(s) Family Medical History: No Reported History Additional Family Medical History / Comment(s): Patient has one daughter with no major medical problems. General Exam - General Exam Comments Initial Comments: GENERAL: Patient is well-developed and well-nourished. Patient completed unresponsive ENT: Neck is soft and supple. No significant lymphadenopathy is noted. Oropharynx is clear. Moist mucous membranes. Neck has full range of motion without eliciting any pain. EYES: The sclera were anicteric and conjunctiva were pink and moist. Extraocular movements were intact and pupils were equal round and reactive to light. Eyelids were unremarkable. PULMONARY: Patient is breathing on her own but has agonal pattern CARDIOVASCULAR: Heart rate irregularly irregular ABDOMEN: Soft and nontender with normal bowel sounds. SKIN: Skin is clear with no lesions or rashes and otherwise unremarkable. NEUROLOGIC: Patient is unresponsive MUSCULOSKELETAL: No lower extremity swelling or edema. No calf tenderness. PSYCHIATRIC: Unable to assess Limitations: altered mental status, physical limitation Course Vital Signs 08/11/21 08/11/21 08/11/21 10:12 10:33 10:38 Temperature 97.3 F L Pulse Rate 52 L 57 L 57 L Respiratory 22 Rate Blood Pressure 177/116 132/91 105/66 O2 Sat by Pulse 91 L 60 L 35 L Oximetry 08/11/21 08/11/21 08/11/21 10:41 10:44 10:52 Temperature Pulse Rate 25 L 50 L 0 L Respiratory 14 Rate Blood Pressure 71/50 O2 Sat by Pulse 37 L 51 L Oximetry Medical Decision Making - Medical Decision Making EKG shows atrial fibrillation at 56 bpm QRS is 116 2T intervals 445 QTC is 436. Patient's EKG has multiple PVCs. EKG quality is poor CT of the brain showed a massive intercranial hemorrhage with midline shift. This point time family arrived I spoke with them they wanted no intervention they did not want any CPR or intubation. We removed the supraglottic breathing device. Shortly thereafter the patient became bradycardic and eventually went asystole and the patient was pronounced at 1052. I spoke with the medical insurance claims specialist and she released the body. - Lab Data Result diagrams: 08/11/21 10:20 08/11/21 10:20 Lab Results 08/11/21 08/11/21 08/11/21 Range/Units 10:16 10:20 10:20 WBC 13.4 H (3.8-10.6) k/uL RBC 3.95 (3.80-5.40) m/uL Hgb 11.6 (11.4-16.0) gm/dL Hct 35.8 (34.0-46.0) % MCV 90.7 (80.0-100.0) fL MCH 29.3 (25.0-35.0) pg MCHC 32.3 (31.0-37.0) g/dL RDW 14.2 (11.5-15.5) % Plt Count 296 (150-450) k/uL MPV 7.2 Neutrophils % 89 % Lymphocytes % 4 % Monocytes % 5 % Eosinophils % 1 % Basophils % 0 % Neutrophils # 11.9 H (1.3-7.7) k/uL Lymphocytes # 0.6 L (1.0-4.8) k/uL Monocytes # 0.6 (0-1.0) k/uL Eosinophils # 0.1 (0-0.7) k/uL Basophils # 0.0 (0-0.2) k/uL PT 11.0 (9.0-12.0) sec INR 1.0 (<1.2) APTT 24.8 (22.0-30.0) sec Sodium (137-145) mmol/L Potassium (3.5-5.1) mmol/L Chloride (98-107) mmol/L Carbon Dioxide (22-30) mmol/L Anion Gap mmol/L BUN (7-17) mg/dL Creatinine (0.52-1.04) mg/dL Est GFR (CKD-EPI)AfAm (>60 ml/min/1.73 sqM) Est GFR (CKD-EPI)NonAf (>60 ml/min/1.73 sqM) Glucose (74-99) mg/dL POC Glucose (mg/dL) 133 H (75-99) mg/dL POC Glu [employer] ID Deandra Sanchez Plasma Lactic Acid Tucker (0.7-2.0) mmol/L Calcium (8.4-10.2) mg/dL Total Bilirubin (0.2-1.3) mg/dL AST (14-36) U/L ALT (4-34) U/L Alkaline Phosphatase (38-126) U/L Ammonia (<30) umol/L Troponin I (0.000-0.034) ng/mL Total Protein (6.3-8.2) g/dL Albumin (3.5-5.0) g/dL 08/11/21 08/11/21 08/11/21 Range/Units 10:20 10:20 10:20 WBC (3.8-10.6) k/uL RBC (3.80-5.40) m/uL Hgb (11.4-16.0) gm/dL Hct (34.0-46.0) % MCV (80.0-100.0) fL MCH (25.0-35.0) pg MCHC (31.0-37.0) g/dL RDW (11.5-15.5) % Plt Count (150-450) k/uL MPV Neutrophils % % Lymphocytes % % Monocytes % % Eosinophils % % Basophils % % Neutrophils # (1.3-7.7) k/uL Lymphocytes # (1.0-4.8) k/uL Monocytes # (0-1.0) k/uL Eosinophils # (0-0.7) k/uL Basophils # (0-0.2) k/uL PT (9.0-12.0) sec INR (<1.2) APTT (22.0-30.0) sec Sodium 138 (137-145) mmol/L Potassium 3.7 (3.5-5.1) mmol/L Chloride 105 (98-107) mmol/L Carbon Dioxide 25 (22-30) mmol/L Anion Gap 8 mmol/L BUN 21 H (7-17) mg/dL Creatinine 0.65 (0.52-1.04) mg/dL Est GFR (CKD-EPI)AfAm >90 (>60 ml/min/1.73 sqM) Est GFR (CKD-EPI)NonAf 83 (>60 ml/min/1.73 sqM) Glucose 128 H (74-99) mg/dL POC Glucose (mg/dL) (75-99) mg/dL POC Glu [employer]upal Architect ID Plasma Lactic Acid Tucker 3.0 H* (0.7-2.0) mmol/L Calcium 8.3 L (8.4-10.2) mg/dL Total Bilirubin 0.7 (0.2-1.3) mg/dL AST 28 (14-36) U/L ALT 16 (4-34) U/L Alkaline Phosphatase 124 (38-126) U/L Ammonia 34 H (<30) umol/L Troponin I <0.012 (0.000-0.034) ng/mL Total Protein 6.4 (6.3-8.2) g/dL Albumin 3.5 (3.5-5.0) g/dL Disposition Clinical Impression: Acute intra-cranial hemorrhage Disposition: Referrals: Radha Khan MD [Primary Care Provider] - 1-2 days Time of Disposition: 11:00 Preliminary Cause of : Intracranial hemorrhage
[2021-08-11 10:30] LABS: Basophils % (A) 0 %; Eosinophils # (A) 0.1 k/uL (0-0.7); Eosinophils % (A) 1 %; HCT 35.8 % (34.0-46.0); HGB 11.6 gm/dL (11.4-16.0); Lymphocytes # (A) 0.6 k/uL (1.0-4.8); Lymphocytes % (A) 4 %; MCH 29.3 pg (25.0-35.0); MCHC 32.3 g/dL (31.0-37.0); MCV 90.7 fL (80.0-100.0); Mean Platelet Volume 7.2; Monocytes # (A) 0.6 k/uL (0-1.0); Monocytes % (A) 5 %; Neutrophils # (A) 11.9 k/uL (1.3-7.7); Neutrophils % (A) 89 %; Platelet Count 296 k/uL (150-450); RBC 3.95 m/uL (3.80-5.40); RDW 14.2 % (11.5-15.5); WBC 13.4 k/uL (3.8-10.6)
[2021-08-11 10:38] LABS: Partial Thromboplastin Time 24.8 sec (22.0-30.0)
[2021-08-11 10:42] LABS: ALT 16 U/L (4-34); AST 28 U/L (14-36); African American GFR (CKD) >90 (>60 ml/min/1.73 sqM); Albumin 3.5 g/dL (3.5-5.0); Alkaline Phosphatase 124 U/L (38-126); Anion Gap 8 mmol/L; Blood Urea Nitrogen 21 mg/dL (7-17); Calcium 8.3 mg/dL (8.4-10.2); Carbon Dioxide 25 mmol/L (22-30); Chloride 105 mmol/L (98-107); Glucose 128 mg/dL (74-99); Non-African American GFR(CKD) 83 (>60 ml/min/1.73 sqM); Potassium 3.7 mmol/L (3.5-5.1); Sodium 138 mmol/L (137-145); Total Bilirubin 0.7 mg/dL (0.2-1.3); Total Protein 6.4 g/dL (6.3-8.2)
[2021-08-11 10:45] VITALS: BP 71/50; RESP 14
--- NOTE | 2021-08-11 10:45 | CT ---
EXAMINATION TYPE: CT brain wo con DATE OF EXAM: 08/11/2021 COMPARISON: CT 07/01/2020 HISTORY: Found non responsive, altered mental status CT DLP: 1098.4 mGycm Automated exposure control for dose reduction was used. Helical imaging through the brain FINDINGS: There is a large parenchymal hematoma in the left periventricular white matter measuring 6.4 x 5.1 x 5.5 cm. There is mass effect, midline shift. There is extension of the hemorrhage or hematoma inferio rly to the level of the midbrain, mass effect of the posterior sivakumar, there is intraventricular blood present as well as hydrocephalus. White matter low-attenuation changes are again noted and become mor e confluent, decrease of the simeon-white differentiation as compared to prior exam noted with effaceme nt of overlying sulci consistent with cerebral edema. Some inflammatory change present in the ethmoid air cells, sphenoid sinus. IMPRESSION: INTRACRANIAL HEMORRHAGE DESCRIBED, THERE IS HYDROCEPHALUS, MIDLINE SHIFT, CEREBRAL EDEMA. Abnormal results called to the EC at the time of interpretation.
[2021-08-11 10:55] VITALS: PULSE 0
== END 2021-08-11 13:53 | disposition expired ==
LOC: EC 10:11
DX: I62.9 Nontraumatic intracranial hemorrhage, unspecified (principal); I10 Essential (primary) hypertension; I48.91 Unspecified atrial fibrillation; I25.10 Atherosclerotic heart disease of native coronary artery without angina pectoris; I25.2 Old myocardial infarction; E78.5 Hyperlipidemia, unspecified; K21.9 Gastro-esophageal reflux disease without esophagitis; M19.90 Unspecified osteoarthritis, unspecified site; Z79.01 Long term (current) use of anticoagulants; Z79.82 Long term (current) use of aspirin; Z79.890 Hormone replacement therapy; Z79.899 Other long term (current) drug therapy
CPT/HCPCS: 36415; 70450; 80053; 82140; 83605; 84484; 85025; 85610; 85730; 93005; 96360; 99285